=== PATIENT | female | born 1955 | race Caucasian/White ===

== ENCOUNTER 2020-03-02 21:14 | Emergency (ER) | payer MEDICARE, MEDICAID, SELFPAY ==
[2020-03-02 21:30] VITALS: BP 141/80; PULSE 75; RESP 18; TEMP 37.1; O2SAT 93
--- NOTE | 2020-03-02 21:34 | CTR_ITS ---
PROCEDURE INFORMATION: Exam: CT Head Without Contrast Exam date and time: 03/02/2020 9:52 PM Age: 64 years old Clinical indication: Injury or trauma; Fall; Initial encounter; Blunt trauma (contusions or hematomas); Consciousness not specified TECHNIQUE: Imaging protocol: Computed tomography of the head without contrast. Radiation optimization: All CT scans at this facility use at least one of these dose optimization techniques: automated exposure control; mA and/or kV adjustment per patient size (includes targeted exams where dose is matched to clinical indication); or iterative reconstruction. COMPARISON: CT head wo con* [id number] 03/01/2019 5:58 PM RADIATION DOSE METRICS: Total DLP (mGy-cm): 819.84 FINDINGS: Brain: There is mild diffuse cerebral atrophy. Patchy areas of hypoattenuation are seen in the deep white the cerebral hemispheres bilaterally compatible with deep white matter microvascular disease. Ventricles: Normal. No ventriculomegaly. Bones/joints: Unremarkable. No acute fracture. Sinuses: Fluid and mucosal thickening is seen within the ethmoidal and sphenoidal sinuses. Mastoid air cells: Visualized mastoid air cells are well aerated. Soft tissues: Soft tissue swelling and hematoma formation seen within the left posterior parietal scalp. CT/CT head wo con* [id number] IMPRESSION: There are no acute intracranial findings. Radiation Dose CTDIVOL = (mGy): DLP = 819.84 (mGy-cm)
--- NOTE | 2020-03-02 21:34 | CTR_ITS ---
PROCEDURE INFORMATION: Exam: CT Cervical Spine Without Contrast Exam date and time: 03/02/2020 9:52 PM Age: 64 years old Clinical indication: Injury or trauma; Fall; Initial encounter; Blunt trauma TECHNIQUE: Imaging protocol: Computed tomography images of the cervical spine without contrast. Radiation optimization: All CT scans at this facility use at least one of these dose optimization techniques: automated exposure control; mA and/or kV adjustment per patient size (includes targeted exams where dose is matched to clinical indication); or iterative reconstruction. COMPARISON: CT Cervical Spine wo* [id number] 11/05/2014 3:00 PM RADIATION DOSE METRICS: Total DLP (mGy-cm): 568.27 FINDINGS: Vertebrae: No acute fracture. Normal alignment. Discs/Spinal canal/Neural foramina: There is a diffuse loss of disc height seen within the cervical spine most prominently seen at C5-C6 compatible with degenerative disc disease. Mild sclerosis, joint space narrowing and bone spurring is seen within the facets of the cervical spine compatible with degenerative joint disease. Soft tissues: Unremarkable. Sinuses: Minimal fluid is seen within the sphenoidal sinuses. Lungs: Lung apices are normal. CT/CT cervical spin wo con* [id number] IMPRESSION: There are no acute osseous findings. Radiation Dose CTDIVOL = (mGy): DLP = 568.27 (mGy-cm)
--- NOTE | 2020-03-02 21:34 | ECG_ITS ---
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 Measurements Intervals [place] Rate: 72 P: 31 MN: 175 QRS: -33 QRSD: 105 T: 43 QT: 407 QTc: 447 Interpretive Statements SINUS RHYTHM POSSIBLE LEFT ATRIAL ENLARGEMENT [-0.1mV P WAVE IN V1/V2] LEFT AXIS DEVIATION [QRS AXIS < -30] SEPTAL MYOCARDIAL INFARCTION , OF INDETERMINATE AGE [40+ ms Q WAVE IN V1/V2] Compared to ECG 03/01/2019 20:02:22 Left-axis deviation now present Myocardial infarct finding still present Electronically Signed On 03-03-2020 13:18:47 CDT by Kasie Keller M.D. [id number] f
--- NOTE | 2020-03-02 21:34 | XRR_ITS ---
PROCEDURE INFORMATION: Exam: XR Left Shoulder Exam date and time: 03/02/2020 10:34 PM Age: 64 years old Clinical indication: Injury or trauma; Fall; Initial encounter; Blunt trauma (contusions or hematomas; Shoulder; Bilateral TECHNIQUE: Imaging protocol: XR Left shoulder. Views: 2 or more views. COMPARISON: No relevant prior studies available. FINDINGS: Bones/joints: Normal. Soft tissues: Some calcifications are seen within the region of the supraspinatus tendon. XR/XR shoulder LT min 2V* [id number] IMPRESSION: There are no acute osseous findings.
--- NOTE | 2020-03-02 21:34 | CTR_ITS ---
PROCEDURE INFORMATION: Exam: CT Lumbar Spine Without Contrast Exam date and time: 03/02/2020 9:52 PM Age: 64 years old Clinical indication: Injury or trauma; Fall; Initial encounter; Blunt trauma (contusions or hematomas) TECHNIQUE: Imaging protocol: Computed tomography images of the lumbar spine without contrast. Radiation optimization: All CT scans at this facility use at least one of these dose optimization techniques: automated exposure control; mA and/or kV adjustment per patient size (includes targeted exams where dose is matched to clinical indication); or iterative reconstruction. COMPARISON: [place] [id number] 03/01/2019 6:00 PM RADIATION DOSE METRICS: Total DLP (mGy-cm): 2276.57 FINDINGS: Vertebrae: There is further acute collapse the L1 vertebral body compared with 03/01/2019. There is some retropulsion of the posterior aspect of the superior endplate of L1 into the spinal canal narrowing the AP dimension of the spinal canal to 9.3 mm. Discs/Spinal canal/Neural foramina: There is a diffuse loss of disc height seen within the lumbar spine with vacuum disc phenomenon seen at L1-L3 and at L4-L5. There is posterior bony bar formation and disc bulging seen at the L2-L3 level more prominent to the right. Prominent broad-based posterior disc bulging is seen at the L4-L5 appearing to contact and flatten the thecal sac anteriorly. There is some bilateral facet hypertrophy seen. However, there is no definite contact with exiting nerve roots. There is a simple bony bar formation and disc bulging seen at L5-S1. Stomach and bowel: Diverticula are present on the sigmoid colon. Soft tissues: Unremarkable. CT/CT lumbar spine wo con* [id number] IMPRESSION: 1. There is further acute compression and collapse of the L1 vertebral body compared with 03/01/2019. 2. Diffuse degenerative disc disease lumbar spine. Radiation Dose CTDIVOL = (mGy): DLP = 2276.57 (mGy-cm)
--- NOTE | 2020-03-02 21:34 | XRR_ITS ---
PROCEDURE INFORMATION: Exam: XR Left Knee Exam date and time: 03/02/2020 10:34 PM Age: 64 years old Clinical indication: Injury or trauma; Fall; Initial encounter; Blunt trauma; Knee; Bilateral TECHNIQUE: Imaging protocol: XR Left knee. Views: 3 views. COMPARISON: No relevant prior studies available. FINDINGS: Bones/joints: Normal. Soft tissues: Normal. XR/XR knee LT 3V* [id number] IMPRESSION: No acute findings.
--- NOTE | 2020-03-02 21:34 | ED_ITS ---
HPI - Fall General: Chief Complaint: Fall Stated Complaint: fall Time Seen by Provider: 03/02/20 21:25 Source: patient Mode of arrival: ambulatory Limitations: no limitations History of Present Illness: HPI Narrative: 64-year-old female was attempting to walk up the steps of her house with the assistance of her son when she lost her balance and fell backwards landing on her left side. Patient and son was also injured hitting his head on the concrete. Patient has an abrasion to her left shoulder and left knee. Patient has a small contusion to the left occipital scalp area. No open wounds were noted. Patient moves all extremities well. Patient appears in moderate pain. Patient was given 2 mg of Dilaudid and 4 mg of Zofran in route to the emergency room per EMS. complaint: fall Review of Systems General: Reports: 10 or more systems reviewed and unremarkable except in HPI and below Musc: Reports: extremity pain Neuro: Reports: other (head injury) Physical Exam Const: COMMON NORMALS: no acute distress and patient oriented x3 GENERAL APPEARANCE: cooperative HENMT: COMMON NORMALS: TM's normal bilaterally and Normal external nose present HEAD & SCALP: normal to inspection NOSE: Normal external nose present TYMPANIC MEMBRANE: TM's normal bilaterally MOUTH: Normal oral and palatal mucosa present THROAT: posterior oropharynx normal OTHER: contusion left occipital scalp Eye: GENERAL EYE: appearance normal, both eyes and all related structures Neck/C-Spine: COMMON NORMALS: full ROM Lymph: LYMPHATIC: no lymphadenopathy noted Chest: COMMONS NORMALS: normal inspection of the chest Resp: COMMON NORMALS: normal respiratory effort EFFORT & INSPECTION: Yes able to speak in complete sentences Cardio: COMMON NORMALS: regular rate and regular rhythm RATE: regular rate RHYTHM: regular rhythm GI: COMMON NORMALS: non-tender : COMMON NORMALS: Yes no CVA tenderness BLADDER/KIDNEY EXAM: Yes no CVA tenderness Back/Pelvis: COMMON NORMALS: no CVA tenderness and thoracic and lumbar spine normal to inspection Extremity: NARRATIVE EXTREMITY EXAM: normal ROM, abrasion left shoulder, left lower leg Neuro: COMMON NORMALS: patient oriented x3 and moves all extremities Psych: COMMON NORMALS: mental status grossly normal and cooperative Skin: COMMON NORMALS: no rashes or lesions noted GENERAL SKIN EXAM: no rashes or lesions noted Course Vital Signs: Vital signs: Vital Signs Temperature 98.8 F 09/04/20 21:30 Pulse Rate 75 03/02/20 21:30 Respiratory Rate 18 03/02/20 21:30 Blood Pressure 141/80 03/02/20 21:30 Pulse Oximetry 93 03/02/20 21:30 MDM - Fall MDM Narrative: Medical decision making narrative: Patient comes in for evaluation after a fall at home. Patient appears well. Patient appears no acute distress. Patient reports back pain. Exam notes abrasion to the left shoulder and left knee. Abdomen soft nontender. Vital signs are normal. Differential diagnosis includes but not limited to fracture, sprain, contusions. X-ray of the chest shoulder and knee demonstrated no acute injury. CT scan of the head and cervical spine were negative for any acute injury. CT scan of the lumbar spine noted further compression of the L1 vertebra, no obvious worsening retropulsion of the vertebra onto the spinal cord was noted from previous exam. Reviewed exam with patient and family recommending pain control and follow-up with pain management for further treatment. Family reports understanding and agreed to plan. Lab Data: Labs: Lab Results 03/02/20 03/02/20 03/02/20 Range/Units 21:48 21:48 21:48 WBC 8.6 (4.0-10.0) 10^3/ uL RBC 5.24 (4.1-5.3) 10^6/u L Hgb 14.5 (11.5-15.3) g/dL Hct 44.4 (37.0-47.0) % MCV 84.7 (81-99) fL MCH 27.7 L (28.0-34.0) pg MCHC 32.7 (30.0-36.0) g/dL RDW 13.3 (12.1-15.1) % Plt Count 234 (130-400) 10^3/c mm MPV 10.7 H (7.4-10.4) fL Neut % (Auto) 61.8 % Lymph % (Auto) 27.9 % [place] % (Auto) 8.5 % Eos % (Auto) 0.9 % Baso % (Auto) 0.6 % Neut # (Auto) 5.32 (1.8-7.7) 10^3/u L Lymph # (Auto) 2.4 (0.8-4.8) 10^3/u L [place] # (Auto) 0.7 (0.2-0.9) 10^3/u L Eos # (Auto) 0.1 (0.0-0.8) 10^3/u L Baso # (Auto) 0.1 (0.0-0.1) 10^3/u L Nucleated RBC % (a uto) 0 % Nucleated RBCs # 0.0 /100WBC Sodium 135 L (136-145) mmol/L Potassium 4.2 (3.5-5.1) mmol/L Chloride 97 L (98-107) mmol/L Carbon Dioxide 27 (22-29) mmol/L Anion Gap 15.2 (5-19) BUN 13 (8-23) mg/dL Creatinine 0.6 (0.5-0.9) mg/dL GFR Calculation 100.0 (90-130) mL/min Glucose 424 H (65-115) mg/dL Calculated Osmolal ity 294 (285-295) mOsm/k g Calcium 10.3 (8.5-10.5) mg/dL Total Bilirubin 0.3 (0.15-1.2) mg/dL AST 11 (0-32) U/L ALT 12 (0-33) U/L Alkaline Phosphata se 93 (35-105) IU/L Total Protein 7.4 (6.6-8.7) g/dL Albumin 4.3 (3.5-5.2) g/dL Globulin 3.1 (1.3-4.6) g/dL Serum Ketones Negative (Negative) EKG Data^: EKG 1: Attestation: I personally reviewed and interpreted this EKG as follows: (2200, sinus rhythm rate of 72 bpm regular, no ectopy, no ST elevation.) Discharge Plan Discharge Patient Disposition: Home Clinical Impression: Closed compression fracture of body of L1 vertebra Condition: Stable Prescriptions: New Celebrex 200 mg capsule 200 mg PO BID Qty: 20 RF: 0 hydrocodone-acetaminophen 5-325 mg tablet 1 tab PO Q6H PRN (Reason: pain) Qty: 20 RF: 0 No Action hydrocodone-acetaminophen 7.5-325 mg tablet 1 tab PO TID PRNRF: 0 ondansetron HCl 4 mg tablet 4 mg PO Q8H RF: 0 Lantus Solostar U-100 Insulin 100 unit/mL (3 mL) insulin pen 70 unit SUBCUT .bedtime RF: 0 dicyclomine 20 mg tablet 20 mg PO QID 90 Days Qty: 360 RF: 3 lisinopril-hydrochlorothiazide 20-12.5 mg tablet 1 tab PO DAILY 90 Days Qty: 90 RF: 1 pregabalin [Lyrica] 100 mg capsule 100 mg PO BID 30 Days Qty: 60 RF: 3 zolpidem [Ambien] 10 mg tablet 10 mg PO .at bedtime 30 Days Qty: 30 RF: 5 Discharge Orders: Discharge Order (Routine); Ordered 03/02/20 Ordered By: Masoud Goins Referrals: Diogo King MD [Primary Care Provider] - Discharge Diet: Usual diet Discharge Activity: Increase activity as tolerated Patient Instructions: Thoracolumbar Fracture (ED) Activity Restrictions/Additional Instructions: Use walker when ambulating. Use hydrocodone for breakthrough pain. Continue with routine medications as directed. Use Celebrex twice daily for further pain relief. Use ice or heat for further control of pain. Follow-up with primary care as needed. Case management will contact you regarding pain treatment with kyphoplasty referral. 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
--- NOTE | 2020-03-02 21:36 | XRR_ITS ---
PROCEDURE INFORMATION: Exam: XR Chest, 1 View Exam date and time: 03/02/2020 10:36 PM Age: 64 years old Clinical indication: Injury or trauma; Fall; Initial encounter; Blunt trauma (contusions or hematomas) TECHNIQUE: Imaging protocol: XR of the chest Views: 1 view. COMPARISON: CR Chest 1 [place] [id number] 03/01/2019 5:04 PM FINDINGS: Lungs: Unremarkable. No consolidation. Pleural space: Unremarkable. No pleural effusion. No pneumothorax. Heart/Mediastinum: Unremarkable. No cardiomegaly. Bones/joints: Unremarkable. XR/XR chest 1V portable [id number] IMPRESSION: No acute findings. Stable appearance of the chest compared with 03/01/2019.
[2020-03-02 22:03] LABS: Basophils # 0.1 10^3/uL (0.0-0.1); Basophils % 0.6 %; Eosinophils # 0.1 10^3/uL (0.0-0.8); Eosinophils % 0.9 %; Hematocrit 44.4 % (37.0-47.0); Hemoglobin 14.5 g/dL (11.5-15.3); Lymphocytes # 2.4 10^3/uL (0.8-4.8); Lymphocytes % 27.9 %; Mean Corpuscular HGB Conc 32.7 g/dL (30.0-36.0); Mean Corpuscular Hemoglobin 27.7 pg (28.0-34.0); Mean Corpuscular Volume 84.7 fL (81-99); Mean Platelet Volume 10.7 fL (7.4-10.4); Monocytes # 0.7 10^3/uL (0.2-0.9); Monocytes % 8.5 %; Neutrophils # 5.32 10^3/uL (1.8-7.7); Neutrophils % 61.8 %; Nucleated Red Blood Cells % 0 %; Platelet Count 234 10^3/cmm (130-400); Red Blood Count 5.24 10^6/uL (4.1-5.3); Red Cell Distribution Width 13.3 % (12.1-15.1); White Blood Count 8.6 10^3/uL (4.0-10.0)
[2020-03-02 22:08] VITALS: BP 142/86; PULSE 75; RESP 18; O2SAT 96
[2020-03-02 22:28] LABS: Alanine Aminotransferase 12 U/L (0-33); Albumin Level 4.3 g/dL (3.5-5.2); Alkaline Phosphatase 93 IU/L (35-105); Anion Gap 15.2 (5-19); Aspartate Amino Transferase 11 U/L (0-32); Blood Urea Nitrogen 13 mg/dL (8-23); Calcium 10.3 mg/dL (8.5-10.5); Carbon Dioxide 27 mmol/L (22-29); Chloride 97 mmol/L (98-107); Globulin 3.1 g/dL (1.3-4.6); Glucose 424 mg/dL (65-115); Osmolality Calculated 294 mOsm/kg (285-295); Potassium 4.2 mmol/L (3.5-5.1); Sodium 135 mmol/L (136-145); Total Bilirubin 0.3 mg/dL (0.15-1.2); Total Protein 7.4 g/dL (6.6-8.7)
[2020-03-02] MEDS: ketorolac 30 mg/mL INJ 15 MG IVP (22:38)
[2020-03-02 22:51] LABS: Ketone (Acetest) Serum Negative (Negative)
[2020-03-02 23:08] VITALS: BP 141/80; PULSE 73; RESP 17; O2SAT 95
[2020-03-02] MEDS: HYDROcodone-acetaminophen 10-325 mg Tablet 1 TAB PO (23:32)
[2020-03-02 23:36] VITALS: BP 148/81; PULSE 72; RESP 17; O2SAT 96
--- NOTE | 2020-03-07 13:29 | DCPLANNER ---
solid waste disposal manager had message to schedule a follow up appointment for patient with pain management for kyphoplasty. solid waste disposal manager called patient to speak with patient about the referral and that patient would need to go to [place], due to not having this in the area. solid waste disposal manager called patient, spoke with patients friend, was told that patient could not speak at the time. solid waste disposal manager called patient again, unable to speak with patient at this time, a voicemail was left for patient to return case briefer phone call.
--- NOTE | 2020-03-22 15:56 | DCPLANNER ---
Patient has a follow up appointment scheduled for Monday, March 30, 2020 at 10:[address] Slater at the [facility]. Clinic will call patient with appointment information.
--- NOTE | 2020-04-04 13:12 | DCPLANNER ---
Patients appointment scheduled for 03.30.[address] Slater was cancelled and not rescheduled at this time.
== END 2020-03-02 23:52 | disposition home or self-care (01) ==
PROVIDERS: Emergency Provider Nurse Practitioner Family; PCP Family Medicine
DX: S32.010A Wedge compression fracture of first lumbar vertebra, initial encounter for closed fracture (principal); Z79.4 Long term (current) use of insulin; W01.0XXA Fall on same level from slipping, tripping and stumbling without subsequent striking against object, initial encounter
CPT/HCPCS: 12345; 36415; 70450; 71045; 72125; 72131; 73030; 73562; 80053; 82009; 85025; 93005; 96375; 99281; 99283; J1885

== ENCOUNTER 2020-03-19 15:05 | Outpatient (CLI) | payer MEDICARE, MEDICAID, SELFPAY ==
--- NOTE | 2020-03-19 15:15 | MR_ITS ---
WS: [id number] MRI LUMBAR SPINE NONCONTRAST HISTORY: compression fracture L1, degenerative disc disease COMPARISON: 03/02/2020 TECHNIQUE: Sagittal and axial multisequence imaging is submitted. LEFT convex curvature of the lumbar spine. Slight reversal at the L1 level. L1 burst fracture with re tropulsion by 6.5 mm of the posterior superior endplate. Fracture extends through the anterior and po sterior vertebral body. There is a severe compression deformity centrally by at least 80%. There is c ontinued marrow edema involving a large portion of the L1 vertebral body and also within the very ant erior and RIGHT lateral aspect of L2. Disc desiccation throughout the lumbar spine. L4 anterolisthesis by 3 mm. Conus terminates normally at L2. T12-L1: Burst fracture resulting in mild subarticular recess narrowing, RIGHT greater than LEFT. L1-L2: Mild effacement of the ventral thecal sac due to the L1 vertebral body fracture with retropuls ion. Mild bilateral foraminal narrowing. L2-L3: Mild osteophytic ridging and annular disc bulging. RIGHT facet osteophyte encroaches into the thecal sac. No significant stenosis. L3-L4: Mild annular disc bulging and osteophytic ridging and facet arthritis. Mild RIGHT subarticular recess narrowing. L4-L5: Mild annular disc bulging and osteophytic ridging. Shallow LEFT paracentral disc protrusion an d facet arthritis. Mild central stenosis. L5-S1: Shallow central disc protrusion with mild facet arthritis. MR/MR lumbar spine wo con* [id number] IMPRESSION: 1. Subacute burst fracture of L1 with 6.5 mm retropulsion of posterior superio r endplate with mild narrowing of the subarticular recesses at T12-L1. 2. Additional minimal marrow edema in the anterior RIGHT superior L2 vertebral body. 3. Multilevel degenerative changes in the lumbar spine. No severe central or foraminal stenosis.
== END 2020-03-19 15:06 | disposition home or self-care (01) ==
LOC: RADWPI 15:13
PROVIDERS: PCP Family Medicine; Visit Provider Family Medicine
DX: S32.010A Wedge compression fracture of first lumbar vertebra, initial encounter for closed fracture (principal); X58.XXXA Exposure to other specified factors, initial encounter; M51.36 Other intervertebral disc degeneration, lumbar region
CPT/HCPCS: 72148

== ENCOUNTER → 2020-04-09 13:32 | Outpatient (BNVA) | payer MEDICARE, MEDICAID, SELFPAY | PROVIDERS: PCP Family Medicine; Visit Provider Nurse Practitioner Family | DX: Z20.828 Contact with and (suspected) exposure to other viral communicable diseases (principal) | CPT/HCPCS: 87635 ==

== ENCOUNTER → 2020-05-03 13:19 | Outpatient (BNVA) | payer MEDICARE, MEDICAID, SELFPAY | PROVIDERS: PCP Family Medicine; Referring Provider Family Medicine; Visit Provider Anesthesiology Pain Medicine | DX: M54.9 Dorsalgia, unspecified (principal); S32.001K Stable burst fracture of unspecified lumbar vertebra, subsequent encounter for fracture with nonunion; X58.XXXD Exposure to other specified factors, subsequent encounter; Z79.891 Long term (current) use of opiate analgesic | CPT/HCPCS: 99203; 99204 ==

== ENCOUNTER → 2020-05-28 08:50 | Outpatient (BNVA) | payer MEDICARE, MEDICAID, SELFPAY | PROVIDERS: PCP Family Medicine; Visit Provider Anesthesiology Pain Medicine | DX: M47.816 Spondylosis without myelopathy or radiculopathy, lumbar region (principal); M47.819 Spondylosis without myelopathy or radiculopathy, site unspecified; M54.9 Dorsalgia, unspecified; S32.001K Stable burst fracture of unspecified lumbar vertebra, subsequent encounter for fracture with nonunion; X58.XXXD Exposure to other specified factors, subsequent encounter; Z79.891 Long term (current) use of opiate analgesic | CPT/HCPCS: 99213; 99214 ==

== ENCOUNTER → 2020-06-25 10:34 | Outpatient (BNVA) | payer MEDICARE, MEDICAID, SELFPAY | PROVIDERS: PCP Family Medicine; Visit Provider Anesthesiology Pain Medicine | DX: M54.9 Dorsalgia, unspecified (principal); S32.001K Stable burst fracture of unspecified lumbar vertebra, subsequent encounter for fracture with nonunion; M51.16 Intervertebral disc disorders with radiculopathy, lumbar region | CPT/HCPCS: 99213 ==

== ENCOUNTER 2020-07-19 17:41 | Inpatient (IN) | payer MEDICARE, MEDICAID, SELFPAY ==
[2020-07-19] VITALS (11 sets, daily range): BP systolic 80–121; BP diastolic 43–70; PULSE 80–112; RESP 16–23; TEMP 36.6–37.3; O2SAT 92–96; BMI 34.3
--- NOTE | 2020-07-19 18:01 | ECG_ITS ---
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 Measurements Intervals [place] Rate: 112 P: 20 [place]: 175 QRS: -21 QRSD: 100 T: 44 QT: 339 QTc: 464 Interpretive Statements SINUS TACHYCARDIA POSSIBLE LEFT ATRIAL ENLARGEMENT [-0.1mV P WAVE IN V1/V2] POSSIBLE ANTERIOR MYOCARDIAL INFARCTION , OF INDETERMINATE AGE [30 ms Q WAVE IN V3/V4, OR R < 0.2 mV IN V4] Compared to ECG 03/02/2020 21:59:21 Sinus rhythm no longer present Left-axis deviation no longer present Myocardial infarct finding still present Electronically Signed On 07-20-2020 19:09:44 [employer]T [employer]KER by Alli Loyola M.D. [id number] f
--- NOTE | 2020-07-19 18:01 | XR_ITS ---
WS: [id number] Portable AP upright chest, 07/19/2020 Clinical Data: stroke Comparison: Portable chest, 03/02/2020. Findings: No nodules, masses or effusions are seen. The heart is normal. The pulmonary vascularity is not increased. No pneumonia or pneumothorax is seen. The aortic arch and descending aorta show tortu osity. There is calcification over the right humeral head representing calcific bursitis or tendiniti s. XR/XR chest 1V portable [id number] Impression: Atherosclerosis.
--- NOTE | 2020-07-19 18:01 | CTR_ITS ---
PROCEDURE INFORMATION: Exam: CT Head Without Contrast Exam date and time: 07/19/2020 7:21 PM Age: 64 years old Clinical indication: Pain; Headache; Additional info: Symptoms of acute stroke TECHNIQUE: Imaging protocol: Computed tomography of the head without contrast. Radiation optimization: All CT scans at this facility use at least one of these dose optimization techniques: automated exposure control; mA and/or kV adjustment per patient size (includes targeted exams where dose is matched to clinical indication); or iterative reconstruction. Other technique: STROKE PROTOCOL was implemented. COMPARISON: CT head wo con* [id number] 03/02/2020 10:33 PM RADIATION DOSE METRICS: Total DLP (mGy-cm): 748.78 FINDINGS: Brain: Mild atrophy and mild white matter chronic microvascular changes are noted. No hemorrhage or CT evidence of acute infarction is seen. Cerebral ventricles: No ventriculomegaly. Bones/joints: Unremarkable. No acute fracture. Paranasal sinuses: Visualized sinuses are unremarkable. No fluid levels. Mastoid air cells: Visualized mastoid air cells are well aerated. Soft tissues: Unremarkable. CT/CT head wo con* [id number] IMPRESSION: No acute intracranial abnormality ASSESSMENT: ASPECTS ([place] Stroke Program Early CT Score) is 10. Radiation Dose CTDIVOL = (mGy): DLP = 748.78 (mGy-cm)
--- NOTE | 2020-07-19 18:01 | CTR_ITS ---
PROCEDURE INFORMATION: Exam: CT Angiography Head With Contrast Exam date and time: 07/19/2020 7:21 PM Age: 64 years old Clinical indication: Speech disturbance; Additional info: Stroke TECHNIQUE: Imaging protocol: Computed tomography angiography of the head with intravenous contrast. 3D rendering (Not supervised by radiologist): MIP and/or 3D reconstructed images were created by the technologist. Radiation optimization: All CT scans at this facility use at least one of these dose optimization techniques: automated exposure control; mA and/or kV adjustment per patient size (includes targeted exams where dose is matched to clinical indication); or iterative reconstruction. Contrast material: OMNI 350; Contrast volume: 95 ml; Contrast route: INTRAVENOUS (IV); COMPARISON: No relevant prior studies available. RADIATION DOSE METRICS: Total DLP (mGy-cm): 2498.87 FINDINGS: ANTERIOR CIRCULATION: Right internal carotid artery: The right ICA is occluded in the carotid canal, with reconstitution of the cavernous portion. Areas of [id number] stenosis of the cavernous portion of the right ICA are appreciated. Right middle cerebral artery: Unremarkable. No occlusion or significant stenosis. No aneurysm. 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 Otherwise, the right TAWANDA is patent distal to the communicating artery junction. Left internal carotid artery: Mild stenosis of the anterior turn of the left carotid siphon is noted. Left middle cerebral artery: Unremarkable. No occlusion or significant stenosis. No aneurysm. Left anterior cerebral artery: Unremarkable. No occlusion or significant stenosis. No aneurysm. POSTERIOR CIRCULATION: Right vertebral artery: Severe stenosis of the terminal right vertebral artery is noted. 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 Basilar artery: Unremarkable. No occlusion or significant stenosis. No aneurysm. Right posterior cerebral artery: Unremarkable. No occlusion or significant stenosis. No aneurysm. Left posterior cerebral artery: Unremarkable. No occlusion or significant stenosis. No aneurysm. Brain: No definite mass, mass effect, or midline shift. Cerebral ventricles: No ventriculomegaly. Bones/joints: Unremarkable. No acute fracture. Soft tissues: Unremarkable. IMPRESSION: 1. 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 2. Severe stenosis of the terminal right vertebral artery. 3. Mild stenosis of the left carotid siphon. PROCEDURE INFORMATION: Exam: CT Angiography Neck With Contrast Exam date and time: 07/19/2020 7:21 PM Age: 64 years old Clinical indication: Speech disturbance; Additional info: Stroke TECHNIQUE: Imaging protocol: Computed tomography angiography of the neck with intravenous contrast. 3D rendering (Not supervised by radiologist): MIP and/or 3D reconstructed images were created by the technologist. Radiation optimization: All CT scans at this facility use at least one of these dose optimization techniques: automated exposure control; mA and/or kV adjustment per patient size (includes targeted exams where dose is matched to clinical indication); or iterative reconstruction. Contrast material: OMNI 350; Contrast volume: 95 ml; Contrast route: INTRAVENOUS (IV); COMPARISON: No relevant prior studies available. RADIATION DOSE METRICS: Total DLP (mGy-cm): 2498.87 FINDINGS: Right common carotid artery: Moderate stenosis of the right carotid bulb is appreciated. Right internal carotid artery: Atherosclerotic plaque causes near-complete occlusion of the proximal right ICA. Right external carotid artery: Moderate stenosis of the right ECA origin is noted. Right vertebral artery: No stenosis. No dissection or occlusion. Left common carotid artery: No stenosis. No dissection or occlusion. Left internal carotid artery: Atherosclerotic plaque causes mild stenosis of the proximal left ICA. Left external carotid artery: No occlusion or stenosis of the origin. Left vertebral artery: No stenosis. No dissection or occlusion. Bones/joints: Mild degenerative changes are observed in the cervical spine. No cervical spine fracture is visualized. Spinal alignment is normal. Soft tissues: Normal. No significant soft tissue swelling. CT/CT angio headneck* [id number] IMPRESSION: 1. 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 2. Moderate stenosis of the right carotid bulb. 3. Mild stenosis of the proximal left ICA. REFERENCES: NASCET CRITERIA. The degree of internal carotid artery stenosis is based on NASCET criteria. Normal is no stenosis. Mild is less than 50% stenosis. Moderate is 50-69% stenosis. Severe is 70% to 99% stenosis. Total occlusion is no detectable patent lumen. Radiation Dose CTDIVOL = (mGy): DLP = 2498.87~2498.87 (mGy-cm)
--- NOTE | 2020-07-19 18:17 | PC.NURSE ---
Patient blood glucose is 399, nurse is aware.
[2020-07-19 18:18] LABS: Basophils # 0.1 10^3/uL (0.0-0.1); Basophils % 0.4 %; Eosinophils # 0.5 10^3/uL (0.0-0.8); Eosinophils % 3.7 %; Hematocrit 47.2 % (37.0-47.0); Hemoglobin 15.5 g/dL (11.5-15.3); Lymphocytes # 0.6 10^3/uL (0.8-4.8); Lymphocytes % 4.6 %; Mean Corpuscular HGB Conc 32.8 g/dL (30.0-36.0); Mean Corpuscular Hemoglobin 27.9 pg (28.0-34.0); Mean Corpuscular Volume 84.9 fL (81-99); Mean Platelet Volume 10.2 fL (7.4-10.4); Monocytes # 1.7 10^3/uL (0.2-0.9); Monocytes % 13.6 %; Neutrophils # 9.54 10^3/uL (1.8-7.7); Neutrophils % 76.9 %; Nucleated Red Blood Cells % 0 %; Platelet Count 242 10^3/cmm (130-400); Red Blood Count 5.56 10^6/uL (4.1-5.3); Red Cell Distribution Width 13.2 % (12.1-15.1); White Blood Count 12.4 10^3/uL (4.0-10.0)
[2020-07-19 18:19] LABS: Glucose Point of Care 399 mg/dL (70-110)
[2020-07-19 18:33] LABS: INR 1.14 (0.8-1.2)
[2020-07-19 18:34] LABS: Partial Thromboplastin Time 29.5 SECONDS (23.9-36.7)
[2020-07-19 18:42] LABS: Alanine Aminotransferase 11 U/L (0-33); Albumin Level 3.9 g/dL (3.5-5.2); Alkaline Phosphatase 91 IU/L (35-105); Anion Gap 34.8 (5-19); Aspartate Amino Transferase 9 U/L (0-32); Blood Urea Nitrogen 16 mg/dL (8-23); Calcium 9.9 mg/dL (8.5-10.5); Chloride 93 mmol/L (98-107); Globulin 3.6 g/dL (1.3-4.6); Glomerular Filtration Rate 62.6 mL/min (90-130); Glucose 409 mg/dL (65-115); Osmolality Calculated 294 mOsm/kg (285-295); Potassium 3.8 mmol/L (3.5-5.1); Sodium 133 mmol/L (136-145); Total Bilirubin 0.5 mg/dL (0.15-1.2); Total Protein 7.5 g/dL (6.6-8.7)
[2020-07-19 18:57] LABS: Carbon Dioxide 9 mmol/L (22-29)
[2020-07-19 19:01] LABS: Amphetamines Screen Urine Negative (Negative); Barbiturates Screen Urine Negative (Negative); Benzodiazepines Screen Urine Negative (Negative); Cocaine Screen Urine Negative (Negative); Opiate Screen Urine Negative (Negative); PCP Screen Urine Negative (Negative); THC Screen Urine Negative (Negative)
[2020-07-19 19:11] LABS: Blood Urine 2+ (Negative); Glucose Urine UA 4+ (Normal); Ketones Urine 3+ (Negative); Protein Urine 1+ (Negative); Urine Appearance Hazy (CLEAR); Urine Color Yellow (Yellow); pH Urine 5 (5-7)
[2020-07-19 19:12] LABS: Add Urine Microscopic? YES; Bilirubin Urine Neg (Negative); Leukocyte Esterase Urine Negative (Negative); Nitrate Urine Negative (Negative); Urobilinogen Urine Norm (Negative)
[2020-07-19 19:13] LABS: Amorphous Sediment Urine 2+ /hpf; Bacteria Urine 1+ /hpf; Squamous Epithelial Cell Urine 0-4 /hpf (0-5)
[2020-07-19 19:14] LABS: Add Urine Culture? No
[2020-07-19] MEDS: iohexol 350 mg/mL 100 mL Btl IV (19:22)
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
[2020-07-19 20:10] LABS: ABG PCO2 21.5 mmHg (35-45); ABG PH Result 7.33 (7.35-7.45); Alveolar-Arterial Oxygen Gradi 5.8 mmHg (5-10); Arterial Blood Gas Hematocrit 43.7 % (37-47); Base Excess ABG -12.3 mmol/L (-2.0-2.0); Blood Gas Allen Test Pos; Blood Gas Sample Site Radial, right; Blood Gas Sample Type Arterial; Carboxyhemoglobin 1.4 %THgb (0.4-20.1); HCO3 ABG 11.4 mmol/L (22-26); Ionized Calcium Level - ABG 1.3 mmol/L (1.1-1.4); Oxygen Device ROOM AIR; Oxygen Saturation ABG 96.3; PO2 ABG 76.1 mmHg (80.0-100.0); Potassium Level - ABG 3.7 mmol/L (3.5-5.0); Total Hemoglobin 14.3 g/dL (12-16)
[2020-07-19 20:31] LABS: Ketone (Acetest) Serum Positive (Negative)
[2020-07-19] MEDS: HYDROcodone-acetaminophen 5-325 mg Tablet 1 TAB PO (20:40)
--- NOTE | 2020-07-19 20:43 | PC.NURSE ---
Patient blood glucose is 441, nurse is aware.
[2020-07-19 20:46] LABS: Glucose Point of Care 441 mg/dL (70-110)
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
[2020-07-19] MEDS: insulin regular-human 100 units/1 mL 10 UNIT IVP (20:56)
[2020-07-19] MEDS: sodium chloride 0.9% 1,000 ML 999 ML IV (20:56)
--- NOTE | 2020-07-19 21:21 | PC.NURSE ---
Patient blood glucose is 354, nurse has been notified.
[2020-07-19 21:24] LABS: Glucose Point of Care 354 mg/dL (70-110)
[2020-07-19 21:38] LABS: D Dimer 1.02 ug/mIFEU (0-0.59)
[2020-07-19 21:56] LABS: Lipase 18 U/L (13-60); Triglycerides 147 mg/dL (0-150)
[2020-07-19 21:59] LABS: Troponin T (5th) Once 17 ng/L (0-10)
[2020-07-19 22:08] LABS: Estmated Average Glucose 318; Hemoglobin A1C 12.7 % (4.0-6.0)
--- NOTE | 2020-07-19 22:24 | PC.NURSE ---
Recieved report from ED
[2020-07-19] MEDS: clopidogrel 75 mg Tablet PO (23:14)
[2020-07-19] MEDS: atorvastatin 40 mg Tablet PO (23:14)
[2020-07-19] MEDS: aspirin 81 mg Chew Tablet PO (23:14)
[2020-07-19] MEDS: potassium chloride ER 20 mEq Tablet 40 MEQ PO (23:15)
[2020-07-19] MEDS: ondansetron 4 MG Tablet PO (23:15)
[2020-07-19] MEDS: sodium chlor 0.9% + KCl 40 mEq 40 MEQ/1,000 ML BAG 100 MEQ IV (23:16)
[2020-07-19 23:39] LABS: Anion Gap 22.5 (5-19); Blood Urea Nitrogen 23 mg/dL (8-23); Calcium 9.2 mg/dL (8.5-10.5); Carbon Dioxide 17 mmol/L (22-29); Chloride 98 mmol/L (98-107); Glomerular Filtration Rate 62.6 mL/min (90-130); Glucose 354 mg/dL (65-115); Osmolality Calculated 296 mOsm/kg (285-295); Potassium 3.5 mmol/L (3.5-5.1); Sodium 134 mmol/L (136-145)
[2020-07-20] VITALS (27 sets, daily range): BP systolic 95–147; BP diastolic 48–98; PULSE 71–128; RESP 14–34; TEMP 36.4–37.9; O2SAT 92–99
[2020-07-20 00:03] LABS: Glucose Point of Care 319 mg/dL (70-110)
[2020-07-20] MEDS: insulin regular-human 250 UNIT in sodium chloride 0.9% 250 ML 7.9 UNIT IV (00:09)
--- NOTE | 2020-07-20 00:18 | PC.NURSE ---
patient has two orders for 1x aspirin 81 mg, plavix and lovenox on AUG. is curently on IV Insulin and has SQ Levemir ordered while Anion gap is not closed, Message sent to Dr. Mederos to Clarify
--- NOTE | 2020-07-20 01:33 | PC.NURSE ---
Arrived to unit from ED 2234, transferred to bed with lift sheet, AO x4, R sided weakness and R sided facial droop noted that was reported in report from ED nurse
--- NOTE | 2020-07-20 01:51 | PC.NURSE ---
Addendum entered by Damian Peacock RN 07/20/20 01:56: And to have patient eat Original Note: Dr. Mederos at bedside an was notified of glucose being 199, this nurse advised to give ordered Levemir, keep current fluids running and to administer ordered Lovenox
[2020-07-20] MEDS: enoxaparin 40 mg/0.4 mL Syringe SUBCUT (02:21)
[2020-07-20 02:23] LABS: Glucose Point of Care 199 mg/dL (70-110)
[2020-07-20 02:23] LABS: Glucose Point of Care 274 mg/dL (70-110)
[2020-07-20 03:26] LABS: Glucose Point of Care 202 mg/dL (70-110)
[2020-07-20 03:43] LABS: Basophils % 0.4 %; Eosinophils % 0.3 %; Hematocrit 39.4 % (37.0-47.0); Hemoglobin 13.1 g/dL (11.5-15.3); Lymphocytes # 1.4 10^3/uL (0.8-4.8); Lymphocytes % 18.3 %; Mean Corpuscular HGB Conc 33.2 g/dL (30.0-36.0); Mean Corpuscular Hemoglobin 27.6 pg (28.0-34.0); Mean Corpuscular Volume 83.1 fL (81-99); Mean Platelet Volume 9.7 fL (7.4-10.4); Monocytes # 0.7 10^3/uL (0.2-0.9); Monocytes % 9.7 %; Neutrophils # 5.21 10^3/uL (1.8-7.7); Neutrophils % 70.5 %; Nucleated Red Blood Cells % 0 %; Platelet Count 206 10^3/cmm (130-400); Red Blood Count 4.74 10^6/uL (4.1-5.3); Red Cell Distribution Width 13.2 % (12.1-15.1); White Blood Count 7.4 10^3/uL (4.0-10.0)
[2020-07-20 04:17] LABS: Alanine Aminotransferase 9 U/L (0-33); Albumin Level 3.3 g/dL (3.5-5.2); Alkaline Phosphatase 67 IU/L (35-105); Anion Gap 17.3 (5-19); Aspartate Amino Transferase 9 U/L (0-32); Blood Urea Nitrogen 24 mg/dL (8-23); Carbon Dioxide 20 mmol/L (22-29); Chloride 104 mmol/L (98-107); Globulin 2.2 g/dL (1.3-4.6); Glomerular Filtration Rate 83.7 mL/min (90-130); Glucose 230 mg/dL (65-115); Osmolality Calculated 295 mOsm/kg (285-295); Potassium 4.3 mmol/L (3.5-5.1); Sodium 137 mmol/L (136-145); Total Bilirubin 0.3 mg/dL (0.15-1.2); Total Protein 5.5 g/dL (6.6-8.7)
[2020-07-20 05:26] LABS: Glucose Point of Care 194 mg/dL (70-110)
[2020-07-20 05:27] LABS: Glucose Point of Care 184 mg/dL (70-110)
--- NOTE | 2020-07-20 05:34 | CTR_ITS ---
PROCEDURE INFORMATION: Exam: CT Angiography Chest With Contrast Exam date and time: 07/20/2020 6:10 AM Age: 64 years old Clinical indication: Shortness of breath; Additional info: Pe TECHNIQUE: Imaging protocol: Computed tomographic angiography of the chest with intravenous contrast. 3D rendering (Not supervised by radiologist): MIP and/or 3D reconstructed images were created by the technologist. Radiation optimization: All CT scans at this facility use at least one of these dose optimization techniques: automated exposure control; mA and/or kV adjustment per patient size (includes targeted exams where dose is matched to clinical indication); or iterative reconstruction. Contrast material: OMNI 350; Contrast volume: 74 ml; Contrast route: INTRAVENOUS (IV); COMPARISON: CR XR chest 1V portable [id number] 07/19/2020 6:10 PM RADIATION DOSE METRICS: Total DLP (mGy-cm): 502.49 FINDINGS: Pulmonary arteries: No large saddle pulmonary embolus. However, cannot exclude pulmonary emboli in the proximal segmental or more distal branches due to severe motion artifact degrading image quality at these levels. Aorta: No aortic aneurysm. No aortic dissection. Lungs: Unremarkable. No consolidation. No masses. Pleural space: Unremarkable. No pneumothorax. No pleural effusion. Heart: Unremarkable. No cardiomegaly. No pericardial effusion. Lymph nodes: Unremarkable. No enlarged lymph nodes. Bones/joints: Unremarkable. No acute fracture. Soft tissues: Unremarkable. CT/CT angio chest PE protcl [id number] IMPRESSION: No large saddle pulmonary embolus. However, cannot exclude pulmonary emboli in the proximal segmental or more distal branches due to severe motion artifact degrading image quality at these levels. Radiation Dose CTDIVOL = (mGy): DLP = 502.49 (mGy-cm)
[2020-07-20] MEDS: iohexol 350 mg/mL 100 mL Btl IV (06:31)
[2020-07-20] MEDS: ondansetron 4 MG Tablet PO ×3 (06:36→21:06)
[2020-07-20] MEDS: levoFLOXacin 750 mg Tablet PO (06:51)
[2020-07-20] MEDS: enoxaparin 60 mg/0.6 mL Syringe 50 MG SUBCUT (06:51)
[2020-07-20 07:04] LABS: Glucose Point of Care 208 mg/dL (70-110)
--- NOTE | 2020-07-20 07:54 | MR_ITS ---
WS: [id number] MRI BRAIN WITH AND WITHOUT CONTRAST HISTORY: CVA COMPARISON: 02/07/2015 TECHNIQUE: Multiplanar imaging performed through the brain with Prohance 17 ml's IV. No acute infarcts are seen. Sosa-white matter differentiation is well preserved. Moderate chronic nisreen rovascular ischemic changes in the white matter. Mild atrophy. No prior hemorrhage. Ventricles and extra-axial spaces are normal. Clivus and pituitary gland are normal. Visualized posterior fossa and brainstem are also normal. Postcontrast images are negative for masses or vascular malformations. Dural venous sinuses are normal. Paranasal sinuses: Well aerated with no significant disease. Mastoid air cells: Normal. Calvarium and scalp: Normal. MR/MR head wo/w con [id number] IMPRESSION: 1. No evidence for an acute infarct or hemorrhage. 2. Mild atrophy and moderate chronic microvascular ischemic disease.
--- NOTE | 2020-07-20 07:54 | NM_ITS ---
WS: [id number] NUCLEAR MEDICINE VENTILATION/PERFUSION LUNG SCAN HISTORY: ?PE, Hypoxia COMPARISON: None available. TECHNIQUE: Ventilation: 30.1 mCi of Technetium 99 DTPA aerosol inhaled. Perfusion: 5.5 mCi of technetium 99m MAA IV. Marked deposition of radionuclide centrally during ventilation. Very heterogeneous pattern of ventila tion. Perfusion study is near normal. There are no unmatched defects. NM/NM pul vent and perfus* [id number] IMPRESSION: Low probability pulmonary embolus.
--- NOTE | 2020-07-20 07:54 | USCV_ITS ---
Fatuma Ching Age: 64 Gender: F : 1955 Exam Date: 07/20/2020 16:28 Ordering Phys: Francis Coley MD Technologist: Heaven Mathew [place] [facility] [place]: CVA BP: 109 / 60 HR: 74 Rhythm: Sinus Technical Quality: Adequate MEASUREMENTS (Male / Female) Normal Values 2D ECHO LV Diastolic Diameter PLAX 3.7 cm 4.2 - 5.9 / 3.9 - 5.3 cm LV Systolic Diameter PLAX 2.3 cm IVS Diastolic Thickness 1.4 cm 0.6 - 1.0 / 0.6 - 0.9 cm IVS Systolic Thickness 1.6 cm LVPW Diastolic Thickness 1.3 cm 0.6 - 1.0 / 0.6 - 0.9 cm LVPW Systolic Thickness 1.8 cm RV Chamber Size 3.7 cm LVOT Diameter 2.0 cm LV Ejection Fraction 2D Teich 68.0 % LV Ejection Fraction MOD 2C 64.3 % LV Ejection Fraction 2C AL 63.7 % LA Diameter 2.3 cm LA Width 3.9 cm LA Height 4.0 cm RA Width 2.9 cm RA Height 3.8 cm Aorta at Sinotubular Diameter 3.0 cm M-MODE LV Diastolic Diameter MM 4.1 cm 4.2 - 5.9 / 3.9 - 5.3 cm LV Systolic Diameter MM 2.3 cm LV Ejection Fraction MM Teich 75.7 % IVS Diastolic Thickness MM 1.1 cm 0.6 - 1.0 / 0.6 - 0.9 cm IVS Systolic Thickness MM 1.9 cm LVPW Diastolic Thickness MM 1.6 cm 0.6 - 1.0 / 0.6 - 0.9 cm LVPW Systolic Thickness MM 1.2 cm Aortic Annulus Diameter 2.5 cm LA Ao Ratio MM 0.8 MV E Point Septal Separation 0.4 cm DOPPLER AV Peak Velocity 125.0 cm/s LVOT Peak Velocity 99.0 cm/s AV Area Cont Eq vti 2.7 cm squared AV Area Cont Eq pk 2.5 cm squared MV Area PHT 4.5 cm squared Mitral E to A Ratio 0.6 MV E' Velocity 33.5 cm/s Mitral E to MV E' Ratio 9.4 Mitral E to LV E' Lateral Ratio 10.6 Mitral E to LV E' Septal Ratio 8.7 TR Peak Velocity 288.0 cm/s TR Peak Gradient 33.2 mmHg TV Peak E Velocity 73.0 cm/s Right Atrial Pressure 3.0 mmHg Pulmonary Artery Systolic Pressu 36.2 mmHg PV Peak Velocity 70.0 cm/s RV Acceleration Time 0.1 s RV Ejection Time 0.3 s RV AcT/ET 0.5 FINDINGS Left Ventricle Normal left ventricular cavity size. Normal left ventricular systolic function. Left ventricular ejection fraction is estimated at 55 %. Grade I/IV diastolic dysfunction (abnormal relaxation filling pattern), normal to mildly elevated filling pressures. Right Ventricle The right ventricle is normal in size and function. Right Atrium The right atrium is normal in size. Left Atrium The left atrium is normal in size. Mitral Valve Moderately thickened mitral valve. Moderate mitral annular calcification. No mitral valve stenosis. Mild mitral valve regurgitation. Aortic Valve Moderate aortic valve calcification. No aortic valve stenosis. Trace aortic valve regurgitation. Tricuspid Valve Tricuspid valve is moderately thickened, cannot rule out vegetation clinical correlation advised .mild tricuspid valve regurgitation. Pulmonic Valve Structurally normal pulmonic valve without significant stenosis. There is no pulmonic regurgitation. Pericardium Normal pericardium without effusion. Aorta Normal ascending aorta dimension. CONCLUSIONS 1-Normal left ventricular cavity size. Normal left ventricular systolic function. Left ventricular ejection fraction is estimated at 55 %. Grade I/IV diastolic dysfunction (abnormal relaxation filling pattern), normal to mildly elevated filling pressures. 2-Moderately thickened mitral valve. Moderate mitral annular calcification. No mitral valve stenosis. Mild mitral valve regurgitation. 3-Moderate aortic valve calcification. No aortic valve stenosis. Trace aortic valve regurgitation. 4-Tricuspid valve is moderately thickened, cannot rule out vegetation clinical correlation advised .mild tricuspid valve regurgitation. 5-Pulmonary artery systolic pressure is within normal limits. 6-There is no pericardial effusion. 7-Right atrial pressure is around 5 mm of mercury. 8-No significant change since the prior echocardiogram study of the december. Karlee Grossman MD (Electronically Signed) Final Date: 21 July 2020 15:32 S
--- NOTE | 2020-07-20 07:54 | USCV_ITS ---
Fatuma Ching Age: 64 Gender: F : 1955 Exam Date: 07/20/2020 16:09 Ordering Phys: Francis Coley MD Technologist: Nay Hopkins [place] [facility] [place] Indication: SWELLING HISTORY: Lower extremity swelling. PROCEDURES: Venous duplex imaging was performed in bilateral lower extremities. The following venous structures were evaluated: common femoral vein, profunda vein, proximal portion of the greater saphenous vein, superficial femoral vein, and the popliteal vein. In addition, the posterior tibial and peroneal trunk were evaluated. Serial compression, augmentation maneuvers, and spectral Doppler flow evaluation were performed. FINDINGS: Normal 2-D Doppler and augmentation and compressibility throughout the lower extremity venous structures. Additional imaging through the proximal calf veins also reveals no thrombus. Limited evaluation of the greater saphenous vein is patent with no thrombus.. CONCLUSIONS No evidence of DVT in the above-mentioned identifiable veins. Dr Alli Loyola MD [facility] (Electronically Signed) Final Date: 20 July 2020 18:26 S
[2020-07-20] MEDS: escitalopram 10 mg Tablet 20 MG PO (09:52)
[2020-07-20] MEDS: clopidogrel 75 mg Tablet PO (09:52)
[2020-07-20] MEDS: aspirin 81 mg EC Tablet PO (09:52)
[2020-07-20 10:23] LABS: Anion Gap 14.9 (5-19); Blood Urea Nitrogen 24 mg/dL (8-23); Calcium 9.7 mg/dL (8.5-10.5); Carbon Dioxide 21 mmol/L (22-29); Chloride 104 mmol/L (98-107); Glomerular Filtration Rate 83.7 mL/min (90-130); Glucose 172 mg/dL (65-115); Osmolality Calculated 290 mOsm/kg (285-295); Potassium 3.9 mmol/L (3.5-5.1); Sodium 136 mmol/L (136-145)
[2020-07-20 11:44] LABS: Glucose Point of Care 221 mg/dL (70-110)
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
[2020-07-20] MEDS: HYDROcodone-acetaminophen 5-325 mg Tablet 1 TAB PO ×2 (12:09→21:06)
[2020-07-20 17:27] LABS: Glucose Point of Care 195 mg/dL (70-110)
[2020-07-20] MEDS: enoxaparin 100 mg/mL Syringe 90 MG SUBCUT (18:39)
--- NOTE | 2020-07-20 19:19 | PC.NURSE ---
0820 Spoke to Nuc Med, unable to do VQ scan stat because scan on other patietn already in progress. [address] Coley to report delay in VQ scan, also clarified am medications and NPO status. Ok for patient to have scan when ready, ok to give am meds as ordered, and patient may eat. 0850 Transported patient to Nuc Med with no issues 1000 Dr. Coley at bedside, reported redness to face and neck post Levaquin administration. Orders to continue to monitor. Discussed patient's low back pain, orders for [place]. 1430 Transported patient to MRI with ambulance crew. No issues.
--- NOTE | 2020-07-20 20:52 | PC.NURSE ---
Received bed side shift report from off going nurse. Pt's plan of care reviewed. Pt was asleep upon entering the room. Pt was easily wakened by touch. Pt is able to tell me where she, date of , and what day it was. Hand library paraprofessional bilateral weak but equal. Pt was was unable to push against my hands with her feet but was able to get up to the BSC with one person assist without any complications. Respirations are even and unlabored. No s/sx of distress noted. Pt sating 97% on 1LPM/NC. Pt denies using home 02. Pt report having 9/10 lower back pain even though she kept falling back to sleep during assessment. Pt didnt complain of any pain while getting up to the BSC. Pt was given prn pain medication for pain management. Pt denies any other pains or concerns at this time. Bed in lowest and locked position, call light and water within reach, x's 2 rails up. Bed alarm on. Will continue to monitor pt.
[2020-07-20] MEDS: atorvastatin 40 mg Tablet 80 MG PO (21:06)
[2020-07-21] VITALS (27 sets, daily range): BP systolic 94–134; BP diastolic 48–78; PULSE 80–101; RESP 16–30; TEMP 36.8–37; O2SAT 91–96
[2020-07-21 04:28] LABS: Basophils # 0.1 10^3/uL (0.0-0.1); Basophils % 0.7 %; Eosinophils # 0.1 10^3/uL (0.0-0.8); Eosinophils % 1.2 %; Hematocrit 39.3 % (37.0-47.0); Hemoglobin 12.9 g/dL (11.5-15.3); Lymphocytes # 0.9 10^3/uL (0.8-4.8); Mean Corpuscular HGB Conc 32.8 g/dL (30.0-36.0); Mean Corpuscular Hemoglobin 27.6 pg (28.0-34.0); Mean Platelet Volume 10.2 fL (7.4-10.4); Monocytes # 1.6 10^3/uL (0.2-0.9); Monocytes % 17.6 %; Neutrophils # 6.19 10^3/uL (1.8-7.7); Neutrophils % 70.3 %; Nucleated Red Blood Cells % 0 %; Platelet Count 153 10^3/cmm (130-400); Red Blood Count 4.68 10^6/uL (4.1-5.3); Red Cell Distribution Width 13.7 % (12.1-15.1); White Blood Count 8.8 10^3/uL (4.0-10.0)
[2020-07-21 05:18] LABS: Magnesium 1.6 mg/dL (1.7-2.3); Thyroid Stimulating Hormone 1.47 uIU/mL (0.27-4.20)
[2020-07-21 05:20] LABS: Procalcitonin 19.25 ng/mL (0-0.5)
[2020-07-21 05:30] LABS: Glucose Point of Care 199 mg/dL (70-110)
[2020-07-21 05:33] LABS: Anion Gap 13.8 (5-19); Blood Urea Nitrogen 27 mg/dL (8-23); Calcium 9.5 mg/dL (8.5-10.5); Carbon Dioxide 23 mmol/L (22-29); Chloride 103 mmol/L (98-107); Cholesterol 153 mg/dL (0-200); Glucose 157 mg/dL (65-115); HDL Cholesterol 15 mg/dL (60-100); LDL Cholesterol Calculated 86 mg/dL (50-129); LDL HDL Ratio 5.73 RATIO (0.00-3.22); Phosphorus 1.4 mg/dL (2.5-4.5); Potassium 3.8 mmol/L (3.5-5.1); Sodium 136 mmol/L (136-145); Triglycerides 261 mg/dL (0-150)
[2020-07-21] MEDS: enoxaparin 100 mg/mL Syringe 90 MG SUBCUT (06:30)
[2020-07-21] MEDS: ondansetron 4 MG Tablet PO ×2 (06:30→20:39)
[2020-07-21] MEDS: levoFLOXacin 750 mg Tablet PO (06:30)
[2020-07-21] MEDS: clopidogrel 75 mg Tablet PO (08:31)
[2020-07-21] MEDS: aspirin 81 mg EC Tablet PO (08:31)
[2020-07-21] MEDS: escitalopram 10 mg Tablet 20 MG PO (08:31)
[2020-07-21] MEDS: magnesium sulfate premix 2 GM/50 ML PIGGYBACK IV (08:33)
[2020-07-21] MEDS: phosphorus 250 mg Tablet PO ×2 (08:33→17:34)
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
[2020-07-21 17:29] LABS: Glucose Point of Care 134 mg/dL (70-110)
[2020-07-21 20:31] LABS: Glucose Point of Care 110 mg/dL (70-110)
[2020-07-21] MEDS: atorvastatin 40 mg Tablet 80 MG PO (20:36)
[2020-07-21] MEDS: HYDROcodone-acetaminophen 5-325 mg Tablet 1 TAB PO (20:36)
[2020-07-21 20:46] LABS: Glucose Point of Care 142 mg/dL (70-110)
[2020-07-22] VITALS (28 sets, daily range): BP systolic 100–147; BP diastolic 63–97; PULSE 71–95; RESP 14–28; TEMP 36.6–37.2; O2SAT 90–96
[2020-07-22 04:45] LABS: Basophils # 0.1 10^3/uL (0.0-0.1); Basophils % 0.6 %; Eosinophils # 0.1 10^3/uL (0.0-0.8); Eosinophils % 0.8 %; Hematocrit 37.5 % (37.0-47.0); Hemoglobin 12.5 g/dL (11.5-15.3); Lymphocytes # 1.4 10^3/uL (0.8-4.8); Mean Corpuscular HGB Conc 33.3 g/dL (30.0-36.0); Mean Corpuscular Volume 83.9 fL (81-99); Mean Platelet Volume 10.3 fL (7.4-10.4); Monocytes # 1.5 10^3/uL (0.2-0.9); Monocytes % 16.4 %; Neutrophils % 65.5 %; Nucleated Red Blood Cells % 0 %; Platelet Count 148 10^3/cmm (130-400); Red Blood Count 4.47 10^6/uL (4.1-5.3); Red Cell Distribution Width 13.6 % (12.1-15.1); White Blood Count 8.8 10^3/uL (4.0-10.0)
[2020-07-22 05:25] LABS: Procalcitonin 10.96 ng/mL (0-0.5)
[2020-07-22 05:37] LABS: Albumin Level 2.8 g/dL (3.5-5.2); Anion Gap 12.5 (5-19); Blood Urea Nitrogen 22 mg/dL (8-23); C Reactive Protein 134.1 mg/L (0.0-4.9); Calcium 9.2 mg/dL (8.5-10.5); Carbon Dioxide 23 mmol/L (22-29); Chloride 103 mmol/L (98-107); Glomerular Filtration Rate 159.7 mL/min (90-130); Glucose 91 mg/dL (65-115); Magnesium 1.8 mg/dL (1.7-2.3); Phosphorus 1.7 mg/dL (2.5-4.5); Potassium 3.5 mmol/L (3.5-5.1); Sodium 135 mmol/L (136-145)
[2020-07-22] MEDS: ondansetron 4 MG Tablet PO ×3 (06:10→22:09)
[2020-07-22] MEDS: levoFLOXacin 750 mg Tablet PO (06:10)
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
[2020-07-22 08:25] LABS: Glucose Point of Care 77 mg/dL (70-110)
[2020-07-22] MEDS: phosphorus 250 mg Tablet PO ×2 (08:58→17:21)
[2020-07-22] MEDS: aspirin 81 mg EC Tablet PO (08:58)
[2020-07-22] MEDS: clopidogrel 75 mg Tablet PO (08:58)
[2020-07-22] MEDS: enoxaparin 40 mg/0.4 mL Syringe SUBCUT (08:59)
[2020-07-22] MEDS: escitalopram 10 mg Tablet 20 MG PO (08:59)
[2020-07-22 11:29] LABS: Glucose Point of Care 156 mg/dL (70-110)
--- NOTE | 2020-07-22 12:18 | PC.SOCIAL ---
IMM Update Pg. 2 of IMM updated and reviewed with patient who verbalized understanding. Copy provided.
[2020-07-22 17:22] LABS: Glucose Point of Care 181 mg/dL (70-110)
[2020-07-22] MEDS: HYDROcodone-acetaminophen 5-325 mg Tablet 1 TAB PO (19:34)
[2020-07-22 20:39] LABS: Glucose Point of Care 193 mg/dL (70-110)
[2020-07-22] MEDS: atorvastatin 40 mg Tablet 80 MG PO (20:43)
[2020-07-23] VITALS (34 sets, daily range): BP systolic 100–166; BP diastolic 49–130; PULSE 70–86; RESP 13–27; TEMP 36.6–37.2; O2SAT 81–98
[2020-07-23 04:53] LABS: Basophils % 0.3 %; Eosinophils # 0.1 10^3/uL (0.0-0.8); Eosinophils % 0.7 %; Hematocrit 42.2 % (37.0-47.0); Hemoglobin 14.1 g/dL (11.5-15.3); Lymphocytes # 2.2 10^3/uL (0.8-4.8); Lymphocytes % 23.2 %; Mean Corpuscular HGB Conc 33.4 g/dL (30.0-36.0); Mean Corpuscular Volume 83.7 fL (81-99); Mean Platelet Volume 10.2 fL (7.4-10.4); Monocytes # 1.5 10^3/uL (0.2-0.9); Monocytes % 15.9 %; Neutrophils # 5.53 10^3/uL (1.8-7.7); Nucleated Red Blood Cells % 0 %; Platelet Count 189 10^3/cmm (130-400); Red Blood Count 5.04 10^6/uL (4.1-5.3); Red Cell Distribution Width 13.6 % (12.1-15.1); White Blood Count 9.4 10^3/uL (4.0-10.0)
[2020-07-23 05:07] LABS: Procalcitonin 5.57 ng/mL (0-0.5)
[2020-07-23 05:20] LABS: Alanine Aminotransferase 19 U/L (0-33); Albumin Level 3.3 g/dL (3.5-5.2); Alkaline Phosphatase 80 IU/L (35-105); Anion Gap 14.5 (5-19); Aspartate Amino Transferase 19 U/L (0-32); Blood Urea Nitrogen 14 mg/dL (8-23); C Reactive Protein 97.3 mg/L (0.0-4.9); Calcium 9.7 mg/dL (8.5-10.5); Carbon Dioxide 25 mmol/L (22-29); Chloride 101 mmol/L (98-107); Glomerular Filtration Rate 123.4 mL/min (90-130); Glucose 71 mg/dL (65-115); Magnesium 1.6 mg/dL (1.7-2.3); Osmolality Calculated 283 mOsm/kg (285-295); Potassium 3.5 mmol/L (3.5-5.1); Sodium 137 mmol/L (136-145); Total Bilirubin 0.4 mg/dL (0.15-1.2)
[2020-07-23 05:32] LABS: Slide Review Slide Review Perform
[2020-07-23 06:14] LABS: D Dimer 1.12 ug/mIFEU (0-0.59)
[2020-07-23 06:29] LABS: Glucose Point of Care 69 mg/dL (70-110)
[2020-07-23] MEDS: dextrose 50% syringe 50 mL 25 ML IVP (06:43)
[2020-07-23 08:17] LABS: Glucose Point of Care 74 mg/dL (70-110)
[2020-07-23] MEDS: levoFLOXacin 750 mg Tablet PO (08:40)
[2020-07-23] MEDS: aspirin 81 mg EC Tablet PO (08:41)
[2020-07-23] MEDS: escitalopram 10 mg Tablet 20 MG PO (08:41)
[2020-07-23] MEDS: clopidogrel 75 mg Tablet PO (08:41)
[2020-07-23] MEDS: ondansetron 4 MG Tablet PO ×2 (08:41→15:33)
[2020-07-23] MEDS: enoxaparin 40 mg/0.4 mL Syringe SUBCUT (08:44)
--- NOTE | 2020-07-23 09:07 | PC.CHAP ---
Pastoral Care Encounter/Spiritual Assessment Type of Contact [] Declined residential specialist visit [] Patient/Family/Request visit [] Outpatient visit [] Follow-up visit [] Physician referral [] Code/Alert [x] Routine visit [] Staff referral [] Actively dying [] Patient sleeping [] Family support [] [] Out of room [] Palliative care [] [] Receiving care in room [] Pre-surgical visit [] Trauma [] Long length of stay [x] ICU visit [x] Other: outside room Relational/Emotional Strength [] Patient feels connected with others/family/visitors/staff [] Distress [] Loneliness/isolation [] Abandonment Spirituality of Patient [] Person of Viri [] Attends Protestant of their Viri [] Believes in Prayer [] Reads Bible or Hinduism materials [] There are Spiritual issues to be addressed Ward Aide Interventions [x] Prayer [] Active listening [] Non-anxious presence [] Spiritual/emotional support [] Crisis/trauma care [] Spiritual counseling [] Bereavement support [] Provided bereavement packet [] Provided Bible/devotional materials [] Provided toy/stuffed animal, coloring book to patient or family member [] Provided Communion [] Anointing/[place] [] Salvation [x] Completed spiritual assessment [] Other: Impact on Illness or Injury [] Angry [] Fearful [] Anxious [] Often cries [] Exhaustion [] Unable to work [] Unable to attend rastafarian [] Unable to walk/stand [] Unable to read [] Unable to drive [] Unable to eat/drink [] Unable to sleep [] Unable to be with family [] Patient intubated [] Other: Summary Time spent with patient
[2020-07-23 09:32] LABS: Glucose Point of Care 133 mg/dL (70-110)
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
[2020-07-23 13:31] LABS: Erythrocyte Sedimentation Rate 77 mm/hr (0-15)
[2020-07-23 13:51] LABS: Creatine Phosphokinase 72 U/L (26-192)
[2020-07-23 14:11] LABS: Add Urine Microscopic? YES; Bilirubin Urine 1+ (Negative); Blood Urine 3+ (Negative); Glucose Urine UA 4+ (Normal); Ketones Urine Negative (Negative); Nitrate Urine Negative (Negative); Specific Gravity, Urine 1.015 (1.005-1.030); Urine Appearance Clear (CLEAR); Urine Color Dark Yellow (Yellow); Urobilinogen Urine 1 mg/dL (Negative); pH Urine 5 (5-7)
[2020-07-23 14:12] LABS: Bacteria Urine 1+ /hpf; Leukocyte Esterase Urine Trace (Negative); Mucus Urine 2+ /hpf; Protein Urine Trace (Negative); Squamous Epithelial Cell Urine 0-4 /hpf (0-5); WBC Urine 15-25 /hpf (0-5)
[2020-07-23 14:13] LABS: Add Urine Culture? Yes
[2020-07-23 14:52] LABS: Globulin 2.6 g/dL (1.3-4.6); Total Protein 5.9 g/dL (6.6-8.7)
[2020-07-23] MEDS: cefTRIAXone 1,000 MG in sodium chloride 0.9% (plus) 50 ML 100 MG IV (15:33)
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
[2020-07-23 16:36] LABS: Glucose Point of Care 224 mg/dL (70-110)
[2020-07-23 17:23] LABS: Glucose Point of Care 233 mg/dL (70-110)
--- NOTE | 2020-07-23 20:25 | PC.NURSE ---
Received bed side shift report from off going nurse. Pt's plan of care reviewed. Pt is resting in bed. Respirations are even and unlabored. No s/sx of distress noted. Pt is alert and oriented and able to make her own decisions. Pt appears to be doing a lot better physically and mentally. Pt is now able to ambulate with a walker to the bathroom. Pt c/o chronic back pain and rates pain 8 out of 10. Pt received prn pain medication for pain management. Pt denies any other pains or concerns at this time. Bed in lowest and locked position, call light and water within reach, x's 2 rails up. Pt is very pleasant and cooperative with care.
[2020-07-23] MEDS: atorvastatin 40 mg Tablet 80 MG PO (21:44)
[2020-07-23] MEDS: HYDROcodone-acetaminophen 5-325 mg Tablet 1 TAB PO (21:44)
--- NOTE | 2020-07-23 23:28 | PC.NURSE ---
Pt transferred from ICU to CSU. All belongings were transferred with patient.
[2020-07-24] VITALS (10 sets, daily range): BP systolic 112–163; BP diastolic 64–78; PULSE 70–93; RESP 15–30; TEMP 36.6–37.3; O2SAT 90–98
[2020-07-24 00:05] LABS: Glucose Point of Care 191 mg/dL (70-110)
[2020-07-24 05:23] LABS: Basophils % 0.3 %; Eosinophils # 0.1 10^3/uL (0.0-0.8); Eosinophils % 1.5 %; Hematocrit 42.3 % (37.0-47.0); Hemoglobin 12.7 g/dL (11.5-15.3); Lymphocytes # 2.7 10^3/uL (0.8-4.8); Lymphocytes % 31.4 %; Mean Corpuscular Volume 93.2 fL (81-99); Mean Platelet Volume 10.2 fL (7.4-10.4); Monocytes # 1.5 10^3/uL (0.2-0.9); Monocytes % 17.2 %; Neutrophils # 4.14 10^3/uL (1.8-7.7); Neutrophils % 47.8 %; Nucleated Red Blood Cells % 0 %; Platelet Count 170 10^3/cmm (130-400); Red Blood Count 4.54 10^6/uL (4.1-5.3); Red Cell Distribution Width 13.6 % (12.1-15.1); White Blood Count 8.7 10^3/uL (4.0-10.0)
[2020-07-24] MEDS: ondansetron 4 MG Tablet PO ×3 (06:09→21:46)
[2020-07-24 06:12] LABS: Alanine Aminotransferase 16 U/L (0-33); Albumin Level 2.9 g/dL (3.5-5.2); Alkaline Phosphatase 85 IU/L (35-105); Blood Urea Nitrogen 13 mg/dL (8-23); C Reactive Protein 49.3 mg/L (0.0-4.9); Calcium 9.5 mg/dL (8.5-10.5); Carbon Dioxide 25 mmol/L (22-29); Chloride 102 mmol/L (98-107); Globulin 2.4 g/dL (1.3-4.6); Glomerular Filtration Rate 123.4 mL/min (90-130); Glucose 168 mg/dL (65-115); Magnesium 1.6 mg/dL (1.7-2.3); Osmolality Calculated 290 mOsm/kg (285-295); Phosphorus 3.4 mg/dL (2.5-4.5); Sodium 138 mmol/L (136-145); Total Bilirubin 0.2 mg/dL (0.15-1.2); Total Protein 5.3 g/dL (6.6-8.7)
[2020-07-24 06:24] LABS: Anion Gap 15.2 (5-19); Aspartate Amino Transferase 17 U/L (0-32); Potassium 4.2 mmol/L (3.5-5.1)
[2020-07-24 06:51] LABS: NT Pro B Type Natriuretic Pept 325 pg/mL (0-125); Procalcitonin 3.07 ng/mL (0-0.5)
--- NOTE | 2020-07-24 07:00 | USCV_ITS ---
Fatuma Ching Age: 64 Gender: F : 1955 Exam Date: 07/24/2020 07:17 Ordering Phys: Francis Coley MD Technologist: Hany Reyes Exam Location: [facility] [place] Indication: ? TRI VEG BP: / HR: Rhythm: Sinus Technical Quality: Good MEASUREMENTS (Male / Female) Normal Values Medications Patient given IV sedation by anesthesia service, for details please refer to the anesthesia report. Complications None. Proc. Components The patient was brought to the ANMOL examination room in a fasting state after obtaining an informed consent. The ANMOL probe was passed into the posterior pharynx , mid-esophagus, distal esophagus, and gastric fundus. ANMOL was performed at multiple levels. The patient tolerated the procedure well and there were no complications. FINDINGS Left Ventricle Normal left ventricular cavity size. Normal left ventricular systolic function. No regional wall motion abnormalities. Left ventricular ejection fraction is estimated at 55 %. Right Ventricle The right ventricle is normal in size and function. Right Atrium The right atrium is normal in size. Left Atrium The left atrium is normal in size. LA Appendage The LA appendage is normal. IA Septum Normal interatrial septum. Mitral Valve Structurally normal mitral valve without significant stenosis or prolapse. There is no mitral regurgitation. Aortic Valve Moderate aortic valve calcification. No aortic valve stenosis. No aortic valve regurgitation. Tricuspid Valve Structurally normal tricuspid valve. Trace tricuspid valve regurgitation. Pulmonic Valve Structurally normal pulmonic valve. No pulmonary valve regurgitation. Pericardium Normal pericardium without effusion. Aorta Normal ascending aorta dimension. CONCLUSIONS 1-Normal left ventricular cavity size. Normal left ventricular systolic function. No regional wall motion abnormalities. Left ventricular ejection fraction is estimated at 55 %. 2-Structurally normal tricuspid valve. Trace tricuspid valve regurgitation. 3-Moderate aortic valve calcification. No aortic valve stenosis. No aortic valve regurgitation. 4-Structurally normal pulmonic valve. No pulmonary valve regurgitation. 5-There is no pericardial effusion. 6-There are no prior echocardiogram studies to compare. Karlee Grossman MD (Electronically Signed) Final Date: 24 July 2020 18:24 S
--- NOTE | 2020-07-24 07:05 | P.ANESASSM_ITS ---
Pre-Anesthetic Assessment Pre-Anesthetic Assessment: Height/Weight: Height 1.63 m Weight 78.471 kg Temp Pulse Resp BP Pulse Ox 98 F 70 18 135/74 93 07/24/20 04:47 07/24/20 04:47 07/24/20 04:47 07/24/20 04:47 07/24/20 04:47 Preop Diagnosis: Previous stroke Proposed Procedure: Operation Date: 07/24/20 07:00 Proposed Procedures p ANMOL (Transesophageal Echocardiogram)(Not Applicable) - Karlee Grossman MD Familial anesthetic complications: none Was Beta Ajck taken within 24 hours: N/A Last intake: 07/23/20 1900 Last Intake: 19:00 Social: Social History: No alcohol and No tobacco Exam: Pre-Anes Outpt Exam: alert and oriented x 3 Airway: Submandibular: WNL Cervical ROM: WNL MP: 2 Dentition: Chipped and Loose Additional comments: poor dentition History/ROS: No significant history except as noted Pulmonary: Pulmonary: None reported CV/HEM: CV/HEM: HTN : : None reported Comments: previous acute kidney injury. Hepatic: Hepatic: None reported GI: GI: None reported Metabolic: Metabolic: DM Musc/skel: Musc/skel: Lower Back Pain Neuropsych: Comments: recent stroke Anesthetic Plan: ASA status: 3 Anesthesia: Anesthesia Evaluation and MAC Risk of > 500 ml blood loss (7ml/kg in children): No Meds/Allergies Current Medications: Current Medications Generic Name Dose Route Start Last Admin Trade Name Freq PRN Reason Stop Dose Admin Aspirin 81 mg 07/20/20 09:00 07/23/20 08:41 Aspirin 81 Mg Ec Tablet PO 81 mg DAILY GHULAM Administration Atorvastatin Calci um 80 mg 07/20/20 21:00 07/23/20 21:44 Atorvastatin 40 Mg Tablet PO 80 mg BEDTIME GHULAM Administration Clopidogrel Bisulf ate 75 mg 07/20/20 09:00 07/23/20 08:41 Clopidogrel 75 M g Tablet PO 75 mg DAILY GHULAM Administration Dextrose 25 ml 07/19/20 22:44 07/23/20 06:43 Dextrose 50% Syr vineet 50 Ml IVP 25 ml ONCE PRN Administration hypoglycemia prot ocol Protocol Enoxaparin Sodium 40 mg 07/22/20 09:00 07/23/20 08:44 Enoxaparin 40 Mg /0.4 Ml Syringe SUBCUT 40 mg Q24H GHULAM Administration Escitalopram Oxala te 20 mg 07/20/20 09:00 07/23/20 08:41 Escitalopram 10 Mg Tablet PO 20 mg DAILY GHULAM Administration Ceftriaxone Sodium 1,000 mg/ 50 mls @ 100 mls/ hr 07/23/20 13:00 07/23/20 21:40 Sodium Chloride IV Infused Q24H GHULAM Infusion Protocol Insulin Aspart 0 unit 07/20/20 08:00 07/23/20 21:53 Insulin Aspart 1 00 Unit/1 Ml SUBCUT 6 unit WM&BEDTIME GHULAM Administration Protocol Insulin Detemir 50 unit 07/23/20 21:00 07/23/20 21:53 Insulin Detemir 100 Units/1 Ml SUBCUT 50 unit BEDTIME GHULAM Administration Ondansetron HCl 4 mg 07/19/20 22:44 07/24/20 06:09 Ondansetron 4 Mg Tablet PO 4 mg Q8H GHULAM Administration Zolpidem Tartrate 10 mg 07/23/20 23:08 07/23/20 23:46 Zolpidem 10 Mg T ablet PO 10 mg BEDTIME GHULAM Administration Additional Medication Information: Generic Name Dose Route Start Last Admin Trade Name Freq PRN Reason Stop Dose Admin Hydrocodone Bitart /Acetaminophen 1 tab 07/20/20 10:21 07/21/20 20:36 Hydrocodone-Acet aminophen 5-325 Mg Tablet PO 1 tab Q6H PRN Administration MODERATE PAIN Aspirin 81 mg 07/20/20 09:00 07/22/20 08:58 Aspirin 81 Mg Ec Tablet PO 81 mg DAILY GHULAM Administration Atorvastatin Calci um 80 mg 07/20/20 21:00 07/21/20 20:36 Atorvastatin 40 Mg Tablet PO 80 mg BEDTIME GHULAM Administration Clopidogrel Bisulf ate 75 mg 07/20/20 09:00 07/22/20 08:58 Clopidogrel 75 M g Tablet PO 75 mg DAILY GHULAM Administration Enoxaparin Sodium 40 mg 07/22/20 09:00 07/22/20 08:59 Enoxaparin 40 Mg /0.4 Ml Syringe SUBCUT 40 mg Q24H GHULAM Administration Escitalopram Oxala te 20 mg 07/20/20 09:00 07/22/20 08:59 Escitalopram 10 Mg Tablet PO 20 mg DAILY GHULAM Administration Insulin Human Regu lar 250 unit 252.5 mls @ 0 mls /hr 07/19/20 22:44 07/20/20 04:36 / Sodium Chlorid e IV 0 unit/hr .Q0M GHULAM 0 mls/hr Titration Protocol Per Protocol Insulin Aspart 0 unit 07/20/20 08:00 07/22/20 08:21 Insulin Aspart 1 00 Unit/1 Ml SUBCUT Not Given WM&BEDTIME GHULAM Protocol Insulin Detemir 70 unit 07/19/20 22:44 07/21/20 22:13 Insulin Detemir 100 Units/1 Ml SUBCUT 70 unit BEDTIME GHULAM Administration Levofloxacin 750 mg 07/20/20 06:00 07/22/20 06:10 Levofloxacin 750 Mg Tablet PO 750 mg DAILY@0600 GHULAM Administration Protocol Ondansetron HCl 4 mg 07/19/20 22:44 07/22/20 06:10 Ondansetron 4 Mg Tablet PO 4 mg Q8H GHULAM Administration Potassium Phosphat e 250 mg 07/22/20 09:00 07/22/20 08:58 Phosphorus 250 M g Tablet PO 07/22/20 18:01 250 mg BID GHULAM Administration PFSH Anesthesia PFSH: Medical History 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 Degenerative disc disease Lumbar disc disease with radiculopathy Type 2 diabetes mellitus Surgical History No pertinent past surgical history Family History Other CAD (coronary artery disease) Diabetes Social History Smoking and tobacco status: never smoked Alcohol intake: never Caregiver/support person: Yes Lives independently: Yes Household members: caregiver Housing: House History of recent travel: No Data Anesthesia CBC & Chem 7: 07/23/20 04:18 07/24/20 04:16 Other Labs: Laboratory Results - last 48 hr 07/22/20 07/22/20 07/22/20 08:12 11:05 16:56 WBC RBC Hgb Hct MCV MCH MCHC RDW Plt Count MPV Neut % (Auto) Lymph % (Auto) [place] % (Auto) Eos % (Auto) Baso % (Auto) Neut # (Auto) Lymph # (Auto) [place] # (Auto) Eos # (Auto) Baso # (Auto) Nucleated RBC % (auto) Nucleated RBCs # ESR D-Dimer Sodium Potassium Chloride Carbon Dioxide Anion Gap BUN Creatinine GFR Calculation Glucose POC Glucose 77 156 H 181 H Calculated Osmolality Calcium Phosphorus Magnesium Total Bilirubin AST ALT Alkaline Phosphatase Creatine Kinase C-Reactive Protein NT-Pro-B Natriuret Pep Total Protein Albumin Globulin Procalcitonin Urine Color Urine Appearance Urine pH Ur Specific Wink Urine Protein Urine Glucose (UA) Urine Ketones Urine Blood Urine Nitrate Urine Bilirubin Urine Urobilinogen Ur Leukocyte Esterase Urine RBC Urine WBC Ur Squamous Epith Cells Amorphous Sediment Urine Bacteria Urine Mucus 07/22/20 07/23/20 07/23/20 20:36 04:10 04:10 WBC RBC Hgb Hct MCV MCH MCHC RDW Plt Count MPV Neut % (Auto) Lymph % (Auto) [place] % (Auto) Eos % (Auto) Baso % (Auto) Neut # (Auto) Lymph # (Auto) [place] # (Auto) Eos # (Auto) Baso # (Auto) Nucleated RBC % (auto) Nucleated RBCs # ESR 77 H D-Dimer Sodium Potassium Chloride Carbon Dioxide Anion Gap BUN Creatinine GFR Calculation Glucose POC Glucose 193 H Calculated Osmolality Calcium Phosphorus Magnesium Total Bilirubin AST ALT Alkaline Phosphatase Creatine Kinase 72 C-Reactive Protein NT-Pro-B Natriuret Pep Total Protein Albumin Globulin Procalcitonin Urine Color Urine Appearance Urine pH Ur Specific Wink Urine Protein Urine Glucose (UA) Urine Ketones Urine Blood Urine Nitrate Urine Bilirubin Urine Urobilinogen Ur Leukocyte Esterase Urine RBC Urine WBC Ur Squamous Epith Cells Amorphous Sediment Urine Bacteria Urine Mucus 07/23/20 07/23/20 07/23/20 04:18 04:18 04:18 WBC 9.4 RBC 5.04 Hgb 14.1 Hct 42.2 MCV 83.7 MCH 28.0 MCHC 33.4 RDW 13.6 Plt Count 189 MPV 10.2 Neut % (Auto) 59.0 Lymph % (Auto) 23.2 [place] % (Auto) 15.9 Eos % (Auto) 0.7 Baso % (Auto) 0.3 Neut # (Auto) 5.53 Lymph # (Auto) 2.2 [place] # (Auto) 1.5 H Eos # (Auto) 0.1 Baso # (Auto) 0.0 Nucleated RBC % (auto) 0 Nucleated RBCs # 0.0 ESR D-Dimer 1.12 H Sodium 137 Potassium 3.5 Chloride 101 Carbon Dioxide 25 Anion Gap 14.5 BUN 14 Creatinine 0.5 GFR Calculation 123.4 Glucose 71 POC Glucose Calculated Osmolality 283 L Calcium 9.7 Phosphorus Magnesium 1.6 L Total Bilirubin 0.4 AST 19 ALT 19 Alkaline Phosphatase 80 Creatine Kinase C-Reactive Protein 97.3 H NT-Pro-B Natriuret Pep Total Protein 5.9 L Albumin 3.3 L Globulin 2.6 Procalcitonin 5.57 H Urine Color Urine Appearance Urine pH Ur Specific Wink Urine Protein Urine Glucose (UA) Urine Ketones Urine Blood Urine Nitrate Urine Bilirubin Urine Urobilinogen Ur Leukocyte Esterase Urine RBC Urine WBC Ur Squamous Epith Cells Amorphous Sediment Urine Bacteria Urine Mucus 07/23/20 07/23/20 07/23/20 06:27 08:14 09:29 WBC RBC Hgb Hct MCV MCH MCHC RDW Plt Count MPV Neut % (Auto) Lymph % (Auto) [place] % (Auto) Eos % (Auto) Baso % (Auto) Neut # (Auto) Lymph # (Auto) [place] # (Auto) Eos # (Auto) Baso # (Auto) Nucleated RBC % (auto) Nucleated RBCs # ESR D-Dimer Sodium Potassium Chloride Carbon Dioxide Anion Gap BUN Creatinine GFR Calculation Glucose POC Glucose 69 L 74 133 H Calculated Osmolality Calcium Phosphorus Magnesium Total Bilirubin AST ALT Alkaline Phosphatase Creatine Kinase C-Reactive Protein NT-Pro-B Natriuret Pep Total Protein Albumin Globulin Procalcitonin Urine Color Urine Appearance Urine pH Ur Specific Wink Urine Protein Urine Glucose (UA) Urine Ketones Urine Blood Urine Nitrate Urine Bilirubin Urine Urobilinogen Ur Leukocyte Esterase Urine RBC Urine WBC Ur Squamous Epith Cells Amorphous Sediment Urine Bacteria Urine Mucus 07/23/20 07/23/20 07/23/20 11:36 13:10 17:20 WBC RBC Hgb Hct MCV MCH MCHC RDW Plt Count MPV Neut % (Auto) Lymph % (Auto) [place] % (Auto) Eos % (Auto) Baso % (Auto) Neut # (Auto) Lymph # (Auto) [place] # (Auto) Eos # (Auto) Baso # (Auto) Nucleated RBC % (auto) Nucleated RBCs # ESR D-Dimer Sodium Potassium Chloride Carbon Dioxide Anion Gap BUN Creatinine GFR Calculation Glucose POC Glucose 224 H 233 H Calculated Osmolality Calcium Phosphorus Magnesium Total Bilirubin AST ALT Alkaline Phosphatase Creatine Kinase C-Reactive Protein NT-Pro-B Natriuret Pep Total Protein Albumin Globulin Procalcitonin Urine Color Dark yellow Urine Appearance Clear Urine pH 5 Ur Specific Wink 1.015 Urine Protein Trace Urine Glucose (UA) 4+ H Urine Ketones Negative Urine Blood 3+ H Urine Nitrate Negative Urine Bilirubin 1+ H Urine Urobilinogen 1 H Ur Leukocyte Esterase Trace H Urine RBC 5-10 H Urine WBC 15-25 H Ur Squamous Epith Cells 0-4 H Amorphous Sediment Not Reportable Urine Bacteria 1+ H Urine Mucus 2+ 07/23/20 07/24/20 07/24/20 21:49 04:16 04:16 WBC RBC Hgb Hct MCV MCH MCHC RDW Plt Count MPV Neut % (Auto) Lymph % (Auto) [place] % (Auto) Eos % (Auto) Baso % (Auto) Neut # (Auto) Lymph # (Auto) [place] # (Auto) Eos # (Auto) Baso # (Auto) Nucleated RBC % (auto) Nucleated RBCs # ESR D-Dimer Sodium 138 Potassium 4.2 Chloride 102 Carbon Dioxide 25 Anion Gap 15.2 BUN 13 Creatinine 0.5 GFR Calculation 123.4 Glucose 168 H POC Glucose 191 H Calculated Osmolality 290 Calcium 9.5 Phosphorus 3.4 Magnesium 1.6 L Total Bilirubin 0.2 AST 17 ALT 16 Alkaline Phosphatase 85 Creatine Kinase C-Reactive Protein 49.3 H NT-Pro-B Natriuret Pep 325 H Total Protein 5.3 L Albumin 2.9 L Globulin 2.4 Procalcitonin 3.07 H Urine Color Urine Appearance Urine pH Ur Specific Wink Urine Protein Urine Glucose (UA) Urine Ketones Urine Blood Urine Nitrate Urine Bilirubin Urine Urobilinogen Ur Leukocyte Esterase Urine RBC Urine WBC Ur Squamous Epith Cells Amorphous Sediment Urine Bacteria Urine Mucus Micro: Microbiology 07/22/20 10:12 Blood Culture - Preliminary Blood NEGATIVE TO DATE 07/22/20 10:12 Blood Culture - Preliminary Blood NEGATIVE TO DATE Cardiac Studies: No Data to Display
[2020-07-24 07:18] LABS: Slide Review Slide Review Perform
--- NOTE | 2020-07-24 07:28 | PC.NURSE ---
ANMOL started: [id number] ANMOL complete Vital signs stable through out
--- NOTE | 2020-07-24 08:00 | PC.NURSE ---
patient moved to room 101 to perform ANMOL. time out performed, vitals stable throughout, patient then moved back to 1122 vitals stable. call light within reach. patient requesting coffee at this time.
--- NOTE | 2020-07-24 08:25 | PC.NURSE ---
dr virgen at bedside and gave verbal order for ccc diet and that patient could have coffee.
[2020-07-24 08:26] LABS: Glucose Point of Care 121 mg/dL (70-110)
[2020-07-24] MEDS: escitalopram 10 mg Tablet 20 MG PO (09:06)
[2020-07-24] MEDS: magnesium oxide 400 mg tablet PO ×2 (09:06→17:20)
[2020-07-24] MEDS: enoxaparin 40 mg/0.4 mL Syringe SUBCUT (09:06)
[2020-07-24] MEDS: clopidogrel 75 mg Tablet PO (09:06)
[2020-07-24] MEDS: aspirin 81 mg EC Tablet PO (09:06)
[2020-07-24 11:32] LABS: Glucose Point of Care 203 mg/dL (70-110)
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
--- NOTE | 2020-07-24 11:51 | DCPLANNER ---
IMM completed on 07/24/20 @ 6285. Copy of rights givne to pt.
[2020-07-24] MEDS: cefTRIAXone 1,000 MG in sodium chloride 0.9% (plus) 50 ML 100 MG IV (12:20)
[2020-07-24 16:29] LABS: Glucose Point of Care 224 mg/dL (70-110)
[2020-07-24 21:24] LABS: Glucose Point of Care 220 mg/dL (70-110)
[2020-07-24] MEDS: atorvastatin 40 mg Tablet 80 MG PO (21:46)
[2020-07-25] VITALS (11 sets, daily range): BP systolic 120–145; BP diastolic 56–88; PULSE 73–86; RESP 12–33; TEMP 36.6–37.2; O2SAT 73–94
[2020-07-25 05:08] LABS: Basophils # 0.1 10^3/uL (0.0-0.1); Basophils % 0.5 %; Eosinophils # 0.1 10^3/uL (0.0-0.8); Eosinophils % 1.1 %; Hematocrit 36.5 % (37.0-47.0); Hemoglobin 11.9 g/dL (11.5-15.3); Lymphocytes % 24.4 %; Mean Corpuscular HGB Conc 32.6 g/dL (30.0-36.0); Mean Corpuscular Hemoglobin 27.7 pg (28.0-34.0); Mean Corpuscular Volume 85.1 fL (81-99); Mean Platelet Volume 9.5 fL (7.4-10.4); Monocytes # 1.9 10^3/uL (0.2-0.9); Monocytes % 15.6 %; Neutrophils # 6.79 10^3/uL (1.8-7.7); Neutrophils % 56.2 %; Nucleated Red Blood Cells % 0 %; Platelet Count 205 10^3/cmm (130-400); Red Blood Count 4.29 10^6/uL (4.1-5.3); Red Cell Distribution Width 13.3 % (12.1-15.1); White Blood Count 12.1 10^3/uL (4.0-10.0)
[2020-07-25 05:50] LABS: Alanine Aminotransferase 15 U/L (0-33); Albumin Level 2.9 g/dL (3.5-5.2); Alkaline Phosphatase 76 IU/L (35-105); Anion Gap 11.6 (5-19); Aspartate Amino Transferase 13 U/L (0-32); Blood Urea Nitrogen 10 mg/dL (8-23); C Reactive Protein 88.7 mg/L (0.0-4.9); Calcium 9.6 mg/dL (8.5-10.5); Carbon Dioxide 29 mmol/L (22-29); Chloride 100 mmol/L (98-107); Globulin 3.1 g/dL (1.3-4.6); Glomerular Filtration Rate 123.4 mL/min (90-130); Glucose 173 mg/dL (65-115); Magnesium 1.6 mg/dL (1.7-2.3); Osmolality Calculated 287 mOsm/kg (285-295); Phosphorus 3.3 mg/dL (2.5-4.5); Potassium 3.6 mmol/L (3.5-5.1); Sodium 137 mmol/L (136-145); Total Bilirubin 0.5 mg/dL (0.15-1.2)
--- NOTE | 2020-07-25 06:15 | PC.NURSE ---
Patient refused Zofran this morning saying, I don't feel I need it this morning.
[2020-07-25 06:37] LABS: NT Pro B Type Natriuretic Pept 782 pg/mL (0-125); Procalcitonin 1.64 ng/mL (0-0.5)
[2020-07-25 06:46] LABS: Glucose Point of Care 176 mg/dL (70-110)
[2020-07-25] MEDS: aspirin 81 mg EC Tablet PO (08:40)
[2020-07-25] MEDS: enoxaparin 40 mg/0.4 mL Syringe SUBCUT (08:40)
[2020-07-25] MEDS: clopidogrel 75 mg Tablet PO (08:40)
[2020-07-25] MEDS: magnesium oxide 400 mg tablet PO ×2 (08:40→17:28)
[2020-07-25] MEDS: escitalopram 10 mg Tablet 20 MG PO (08:40)
--- NOTE | 2020-07-25 10:22 | PC.NURSE ---
patient ambulated in the del cid with physical therapy this morning. patient is now resting in bed with call light in reach and no needs identified at this time.
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
[2020-07-25 11:55] LABS: Glucose Point of Care 179 mg/dL (70-110)
[2020-07-25] MEDS: cefTRIAXone 1,000 MG in sodium chloride 0.9% (plus) 50 ML 100 MG IV (12:45)
[2020-07-25 14:34] LABS: COMPLEMENT, TOTAL (CH50) >60 U/mL (31-60)
[2020-07-25 14:48] LABS: COMPLEMENT COMPONENT C3C 165 mg/dL (83-193); COMPLEMENT COMPONENT C4C 22 mg/dL (15-57); THYROID PEROXIDASE ANTIBODIES <1 IU/mL (<9)
--- NOTE | 2020-07-25 16:08 | PC.NURSE ---
PATIENT REFUSED ZOFRAN AT THIS TIME.
[2020-07-25 17:01] LABS: Glucose Point of Care 191 mg/dL (70-110)
[2020-07-25 20:31] LABS: Glucose Point of Care 223 mg/dL (70-110)
[2020-07-25] MEDS: ondansetron 4 MG Tablet PO (20:52)
[2020-07-25] MEDS: atorvastatin 40 mg Tablet 80 MG PO (20:52)
[2020-07-26] VITALS (9 sets, daily range): BP systolic 107–156; BP diastolic 60–75; PULSE 69–98; RESP 14–25; TEMP 36.6–38.5; O2SAT 92–93
[2020-07-26 05:20] LABS: Basophils # 0.1 10^3/uL (0.0-0.1); Basophils % 0.6 %; Eosinophils # 0.1 10^3/uL (0.0-0.8); Eosinophils % 0.9 %; Hematocrit 36.5 % (37.0-47.0); Hemoglobin 11.9 g/dL (11.5-15.3); Lymphocytes # 1.9 10^3/uL (0.8-4.8); Lymphocytes % 16.8 %; Mean Corpuscular HGB Conc 32.6 g/dL (30.0-36.0); Mean Corpuscular Hemoglobin 27.7 pg (28.0-34.0); Mean Corpuscular Volume 85.1 fL (81-99); Mean Platelet Volume 9.5 fL (7.4-10.4); Monocytes # 1.9 10^3/uL (0.2-0.9); Monocytes % 16.3 %; Neutrophils # 7.17 10^3/uL (1.8-7.7); Neutrophils % 62.3 %; Nucleated Red Blood Cells % 0 %; Platelet Count 217 10^3/cmm (130-400); Red Blood Count 4.29 10^6/uL (4.1-5.3); Red Cell Distribution Width 13.2 % (12.1-15.1); White Blood Count 11.5 10^3/uL (4.0-10.0)
[2020-07-26 06:06] LABS: Alanine Aminotransferase 17 U/L (0-33); Albumin Level 2.9 g/dL (3.5-5.2); Alkaline Phosphatase 92 IU/L (35-105); Anion Gap 12.6 (5-19); Aspartate Amino Transferase 19 U/L (0-32); Blood Urea Nitrogen 10 mg/dL (8-23); C Reactive Protein 88.6 mg/L (0.0-4.9); Calcium 9.4 mg/dL (8.5-10.5); Carbon Dioxide 31 mmol/L (22-29); Chloride 98 mmol/L (98-107); Globulin 3.3 g/dL (1.3-4.6); Glomerular Filtration Rate 159.7 mL/min (90-130); Glucose 84 mg/dL (65-115); Magnesium 1.6 mg/dL (1.7-2.3); Osmolality Calculated 284 mOsm/kg (285-295); Phosphorus 2.5 mg/dL (2.5-4.5); Potassium 3.6 mmol/L (3.5-5.1); Sodium 138 mmol/L (136-145); Total Bilirubin 0.4 mg/dL (0.15-1.2); Total Protein 6.2 g/dL (6.6-8.7)
[2020-07-26 06:10] LABS: NT Pro B Type Natriuretic Pept 630 pg/mL (0-125); Procalcitonin 1.23 ng/mL (0-0.5)
--- NOTE | 2020-07-26 06:41 | PC.NURSE ---
Phillip from [facility] in patient's room to obtain blood from existing IV. Patient tolerated well. Line was flushed.
[2020-07-26 06:51] LABS: Glucose Point of Care 75 mg/dL (70-110)
[2020-07-26] MEDS: HYDROcodone-acetaminophen 10-325 mg Tablet 1 TAB PO (08:34)
[2020-07-26] MEDS: clopidogrel 75 mg Tablet PO (08:35)
[2020-07-26] MEDS: escitalopram 10 mg Tablet 20 MG PO (08:35)
[2020-07-26] MEDS: magnesium oxide 400 mg tablet PO ×2 (08:35→17:19)
[2020-07-26] MEDS: enoxaparin 40 mg/0.4 mL Syringe SUBCUT (08:35)
[2020-07-26] MEDS: aspirin 81 mg EC Tablet PO (08:35)
[2020-07-26 11:03] LABS: Glucose Point of Care 139 mg/dL (70-110)
--- NOTE | 2020-07-26 11:41 | NM_ITS ---
WS: [id number] NUCLEAR MEDICINE TAGGED WHITE BLOOD CELL STUDY INDICATION: Weakness TECHNIQUE: Nuclear medicine Ceretec tagged white blood cell study with 20.2 mCi technetium 99m FINDINGS: Normal white blood cell activity in the liver and spleen. Hepatomegaly. Normal bone marrow activity. No abnormal areas of white blood cell activity to indicate infection. Normal bladder activi ty. NM/NM WBC scan w SPECT 41231/31 IMPRESSION: Unremarkable white blood cell study.
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
[2020-07-26 13:29] LABS: ANA SCREEN, IFA NEGATIVE (NEGATIVE)
[2020-07-26] MEDS: cefTRIAXone 1,000 MG in sodium chloride 0.9% (plus) 50 ML 100 MG IV (13:50)
[2020-07-26] MEDS: ondansetron 4 MG Tablet PO ×2 (13:51→20:47)
[2020-07-26 14:28] LABS: CENTROMERE B ANTIBODY <1.0 NEG AI (<1.0 NEG); JO-1 ANTIBODY <1.0 NEG AI (<1.0 NEG); RNP ANTIBODY <1.0 NEG AI (<1.0 NEG); SCL-70 ANTIBODY <1.0 NEG AI (<1.0 NEG); SJOGREN'S ANTIBODY (SS-A) <1.0 NEG AI (<1.0 NEG); SM ANTIBODY <1.0 NEG AI (<1.0 NEG); SS-B <1.0 NEG AI (<1.0 NEG)
--- NOTE | 2020-07-26 15:25 | DCPLANNER ---
IMM completed on 07/26/20 @ 6203. Copy of rights given to pt.
[2020-07-26 16:49] LABS: Glucose Point of Care 240 mg/dL (70-110)
--- NOTE | 2020-07-26 19:05 | PC.NURSE ---
Received report from Swetha Aleman RN. Patient resting in bed with eyes closed. Easily aroused. Denies pain, reports feeling very comfortable. Patient requesting Ambien this evening. No distresses observed. Assessment completed as documented.
[2020-07-26 20:39] LABS: Glucose Point of Care 235 mg/dL (70-110)
[2020-07-26] MEDS: atorvastatin 40 mg Tablet 80 MG PO (20:47)
--- NOTE | 2020-07-26 23:33 | PC.NURSE ---
Addendum entered by Helena Freeman RN 07/27/20 01:06: Dr Mederos in to see patient at this time to address increase in temperature. Doctor has placed multiple orders. Original Note: Patient's current temperature is 101.3. Denies any discomforts. Informed Dr Mederos. No new orders received at this time.
[2020-07-27] VITALS (7 sets, daily range): BP systolic 101–142; BP diastolic 58–64; PULSE 67–96; RESP 18–20; TEMP 36.6–38.4; O2SAT 90–96
--- NOTE | 2020-07-27 00:48 | XR_ITS ---
WS: [id number] Exam: XR chest 1V portable [id number] Date/Time of Exam: 07/27/2020 12:48 AM Reason For Exam: fever Comparison 07/19/2020 Findings: The lungs are clear and fully expanded. Costophrenic angles are sharp. No infiltrates. Bronchovascula r relief appears normal. Cardiac silhouette is unremarkable. Bony elements are intact. XR/XR chest 1V portable [id number] IMPRESSION: Unremarkable chest radiograph.
[2020-07-27] MEDS: HYDROmorphone 1 mg/mL INJ 1 mL 0.5 MG IVP (01:31)
--- NOTE | 2020-07-27 01:32 | PC.PHAR ---
Pharmacokinetic dosing service Date: 07/27/2020 Time: 131 Objective: Patient: Fatuma Ching Floor: 112-2 Age: 64 yo Serum creatinine: 0.4 mg/dL Height: 64.0 Inches Weight (kg): 78.471 Diagnosis: Relevant medical/social history: Cultures and sensitivities: Other labs: Assessment: IBW (kg): 54.70 Dosing wt(kg): 78.471 Estimated Creatinine clearance (ml/min): 119.5 CRCL method: Cockcroft and Gault using ibw(default). Drug selected: Vancomycin Loading dose (mg): 0 Vd (liters): 70.6 (factor used: 0.9 L/kg) Peter (hr-1): 0.104 Half life (hrs): 6.66 Recommended dose: 1250 mg Interval: 8 hrs Infusion time (hrs): 1.5 Predicted peak (mcg/mL): 29.0 Predicted trough (mcg/mL): 14.75 Total body weight is being used for vancomycin dosing. Renal function is stable [ ] /unstable [ ] Recommendations: Give Vancomycin 1250 mg q 8 hrs with an expected Cpeak of 29.0 mcg/ml and an expected Ctrough of 14.75 mcg/ml Renal dosing of other antibiotics (review renal dosing of other medications and list guidelines here): Thank you for the consult, will continue to follow. Signature: Florence Masterson [facility]
[2020-07-27] MEDS: lidocaine 1% INJ 20 mL INJECTION (01:46)
--- NOTE | 2020-07-27 01:46 | PC.NURSE ---
Lidocaine used at bedside by Dr Mederos for lumbar puncture.
--- NOTE | 2020-07-27 02:07 | PM.ACPR ---
Acute Procedures Lumbar Puncture: Time out performed: Yes Patient position: left lateral decubitus Skin prep: Povidone-Iodine 1% Local anesthetic used: Lidocaine 1% Amount of anesthesia used (ml): 5 Interspace used: L4-L5 Opening pressure (cmH20): 19 Fluid initially obtained: clear Complications: none Additional comments: Patient became septic overnight spiked fever 101.3 she was tachypneic, noticed leukocytosis she met sepsis criteria, on clinical exam she was complaining of headache neck pain positive Kernig sign, decision was made to start her on vancomycin and ceftriaxone and obtain CSF dexamethasone was not given as she was getting ceftriaxone before antibiotics already, patient tolerated the procedure very well, No postprocedure complications Estimated blood loss 0 mL Two CSU nurses were present in the room Norberto
[2020-07-27] MEDS: acetaminophen 325 mg Tablet 650 MG PO ×2 (02:10→21:17)
[2020-07-27] MEDS: cefTRIAXone 2,000 MG in sodium chloride 0.9% (plus) 50 ML 100 MG IV (02:10)
--- NOTE | 2020-07-27 02:11 | P.EN_ITS ---
Event Note Event Note: I was notified regarding temperature 101.3 Patient was evaluated at bedside Patient was complaining of headache and neck pain, however the site did not seem infiltrated, no chest pain shortness of breath cough dysuria or diarrhea endorsed by the patient On clinical exam Awake alert oriented x3 GCS 15 Left-sided residual weakness from the stroke No sign of cellulitis of skin No IV line infiltration Positive Kernig's sign, neck pain and headache No temporal tenderness Nontender abdomen S1, S2 Lower extremity no edema gangrene or ulcer Review of records: Reviewed she has had high inflammatory markers recent WBC nuclear scan venous Doppler pulmonary for effusion did not reveal acute pathol ogical findings however echo did not show any vegetations Assessment and plan Sepsis, criteria met with fever, tachypnea and leukocytosis considering positive Kernig sign and headache and neck pain I would start her on vancomycin and ceftriaxone 2 g along with doxycycline empirically for my suspicion for meningitis Bedside lumbar puncture was done Her Lovenox dose was 9 AM in the morning it has been more than 12 hours, her platelet counts are normal CT head reviewed , Patient tolerated the procedure very well, her opening pressure was 19 mmhg Clear CSF color, estimated blood loss 0 Post procedure patient was asked to lay supine for at least 24 hours, I will give her Tylenol for headache preprocedure Dilaudid 0.5 mg was given
--- NOTE | 2020-07-27 02:20 | PC.NURSE ---
Consent for lumbar puncture signed and in chart. Dr Mederos performed spinal tap with 2 RN at bedside. Collections sent to lab. Patient tolerated procedure well. Patient c/o headache prior to procedure. No relief with Dilaudid administration. Received verbal order for Tylenol 650mg PO q6hr. RBVO Tylenol administered.
[2020-07-27 02:22] LABS: Basophils # 0.1 10^3/uL (0.0-0.1); Basophils % 0.5 %; Eosinophils # 0.1 10^3/uL (0.0-0.8); Hematocrit 35.2 % (37.0-47.0); Hemoglobin 11.6 g/dL (11.5-15.3); Lymphocytes # 1.7 10^3/uL (0.8-4.8); Mean Corpuscular Hemoglobin 27.7 pg (28.0-34.0); Mean Platelet Volume 9.3 fL (7.4-10.4); Monocytes # 1.8 10^3/uL (0.2-0.9); Monocytes % 15.2 %; Neutrophils # 7.67 10^3/uL (1.8-7.7); Neutrophils % 66.6 %; Nucleated Red Blood Cells % 0 %; Platelet Count 234 10^3/cmm (130-400); Red Blood Count 4.19 10^6/uL (4.1-5.3); White Blood Count 11.5 10^3/uL (4.0-10.0)
[2020-07-27 02:25] LABS: CSF Mononuclear # 0.001 10^3/uL (50-90); Mononuclear WBC CSF % 100 % (50-90); Polynuclear WBC CSF % 0 % (0-10); Red Blood Cell CSF 0 10^3/uL (0-0); White Blood Cell CSF 1 /uL (0-5)
[2020-07-27 02:27] LABS: Appearance CSF CLEAR (CLEAR); Color CSF COLORLESS (COLORLESS)
[2020-07-27 02:43] LABS: Glucose CSF 107 mg/dL (40-70); Total Protein CSF 34 mg/dL (15-45)
[2020-07-27] MEDS: vancomycin 1,250 MG/250 ML PIGGYBACK 250 MG IV ×2 (02:48→14:58)
[2020-07-27 02:49] LABS: Alanine Aminotransferase 14 U/L (0-33); Albumin Level 3.2 g/dL (3.5-5.2); Alkaline Phosphatase 93 IU/L (35-105); Anion Gap 12.6 (5-19); Aspartate Amino Transferase 14 U/L (0-32); Blood Urea Nitrogen 11 mg/dL (8-23); Calcium 9.7 mg/dL (8.5-10.5); Carbon Dioxide 30 mmol/L (22-29); Chloride 96 mmol/L (98-107); Globulin 3.2 g/dL (1.3-4.6); Glomerular Filtration Rate 123.4 mL/min (90-130); Glucose 145 mg/dL (65-115); Magnesium 1.6 mg/dL (1.7-2.3); Osmolality Calculated 282 mOsm/kg (285-295); Phosphorus 2.7 mg/dL (2.5-4.5); Potassium 3.6 mmol/L (3.5-5.1); Sodium 135 mmol/L (136-145); Total Bilirubin 0.5 mg/dL (0.15-1.2); Total Protein 6.4 g/dL (6.6-8.7)
[2020-07-27 02:50] LABS: C Reactive Protein 86.2 mg/L (0.0-4.9); Lactate Dehydrogenase 162 U/L (135-214)
[2020-07-27] MEDS: ondansetron 4 MG Tablet PO ×2 (06:07→23:02)
--- NOTE | 2020-07-27 06:33 | PC.NURSE ---
patient up to bathroom and grooming self. Patient heart rate has been 70s to 80s all night. Cardizem drip was paused earlier as documented. Patient current heart rate running 110s to 130s. Patient does report feeling palpitations in her chest but no other discomforts. Informed Dr Mederos and received direction to restart Cardizem gtt. Will restart at 10ml/hr.
[2020-07-27 06:51] LABS: Add Urine Microscopic? YES; Bilirubin Urine Neg (Negative); Blood Urine 3+ (Negative); Glucose Urine UA 1+ (Normal); Ketones Urine Negative (Negative); Leukocyte Esterase Urine Negative (Negative); Nitrate Urine Negative (Negative); Protein Urine Neg (Negative); Specific Gravity, Urine 1.005 (1.005-1.030); Urine Appearance SL Hazy (CLEAR); Urine Color Yellow (Yellow); Urobilinogen Urine Norm (Negative); pH Urine 5 (5-7)
[2020-07-27 06:52] LABS: RBC Urine 25-40 /hpf (0-2); WBC Urine 0-4 /hpf (0-5)
[2020-07-27 06:53] LABS: Add Urine Culture? No; Bacteria Urine TRACE /hpf; Mucus Urine TRACE /hpf
[2020-07-27 07:17] LABS: Glucose Point of Care 59 mg/dL (70-110)
--- NOTE | 2020-07-27 08:16 | CT_ITS ---
WS: [id number] CT LUMBAR SPINE TECHNIQUE: Noncontrast CT of the lumbar spine with coronal and sagittal reformatted images. CLINICAL INFORMATION: r/o diskitis COMPARISON: MRI February 2020 DLP: 1641.[address] scans at [facility] use at least one of these dose optimization techniques: automat ed exposure control; mA and/or kV adjustment per patient size (includes targeted exams where dose is matched to clinical indication); or iterative reconstruction. FINDINGS: Lumbar scoliosis. Burst type compression fracture L1 vertebral body with retropulsion of the posterio r superior cortex. This results in moderate central canal stenosis. This is unchanged since the prior MRI. Vacuum disc phenomenon L2-L3 and L4-5. No evidence of discitis or osteomyelitis. L1-L2: Normal. L2-L3: Disc osteophyte complex with endplate ridging. Narrowing of the subarticular recess with encroachment on the traversing right L3 nerve root. Foramen are patent. Mild facet arthropathy. L3-L4: Mild annular bulging with a tiny right pericentral protrusion. Impingement on the right subart icular recess and traversing L4 nerve root. Foramen are patent. Moderate facet arthropathy. L4-L5: Mild disc bulging with vacuum disc phenomenon. Osteophytic ridging. Narrowing of the left suba rticular recess. Moderate facet arthropathy. Foramen are patent. L5-S1: Left pericentral disc osteophyte protrusion impinges the traversing left S1 nerve root. Forame n are patent. Moderate facet arthropathy. Shotty para-aortic lymph nodes not pathologically enlarged. Sigmoid diverticulosis. CT/CT lumbar spine wo con* [id number] IMPRESSION: 1. No evidence of discitis or osteomyelitis. No paravertebral abscess. 2. No high-grade central canal stenosis. 3. Burst type impression fracture L1 vertebral body with moderate retropulsion posterior superior cortex. This results in moderate central canal stenosis unc hanged from the prior MRI.
--- NOTE | 2020-07-27 08:16 | CT_ITS ---
WS: [id number] CT THORACIC SPINE TECHNIQUE: Noncontrast CT of the thoracic spine with coronal and sagittal reformatted images. CLINICAL INFORMATION: r/o abscess, diskitis COMPARISON: None. DLP: 1783.[address] scans at [facility] use at least one of these dose optimization techniques: automat ed exposure control; mA and/or kV adjustment per patient size (includes targeted exams where dose is matched to clinical indication); or iterative reconstruction. FINDINGS: Mild thoracic curve convex right. Compression fracture L1 vertebral body will be discussed in the lum bar spine CT. No acute appearing thoracic spine compression fractures. Disc space heights and vertebr al body heights thoracic spine are well-maintained. No high-grade central canal stenosis. Moderate facet arthropathy in the lower thoracic spine. Mild central canal stenosis T10-11. Mild left T10-11 bony foraminal narrowing. No evidence of discitis or osteomyelitis. No evidence of paraverteb ral abscess. Trace bilateral pleural fluid. CT/CT thoracic spin wo con* [id number] IMPRESSION: 1. No evidence of discitis or osteomyelitis. 2. No high-grade central canal stenosis.
--- NOTE | 2020-07-27 08:16 | CT_ITS ---
WS: [id number] CT CERVICAL SPINE TECHNIQUE: Noncontrast CT of the cervical spine with coronal and sagittal reformatted images. CLINICAL INFORMATION: neck pain, r/o absess COMPARISON: None. DLP: 529.[address] scans at [facility] use at least one of these dose optimization techniques: automat ed exposure control; mA and/or kV adjustment per patient size (includes targeted exams where dose is matched to clinical indication); or iterative reconstruction. FINDINGS: Straightening of the normal cervical lordosis. Moderate spondylitic changes. Disc osteophyte complexe s worse at C5-C6. C2-C3: Normal. C3-C4: Disc osteophyte complex with endplate ridging. Severe right and mild left bony foraminal narro wing. C4-C5: Disc osteophyte complex with small central protrusion. Moderate right and mild left foraminal narrowing. Mild central canal stenosis. C5-C6: Disc osteophyte complex with endplate ridging. Mild central canal stenosis. Moderate right gre ater than left bony foraminal narrowing. C6-C7: Disc osteophyte complex with endplate ridging. Spinal canal and foramen are patent. C7-T1: No significant disc bulging. Spinal canal and foramen are patent. Partially visualized mastoid air cells well aerated. Normal visualized paravertebral soft tissues. No evidence of discitis or osteomyelitis. CT/CT cervical spin wo con* [id number] IMPRESSION: No evidence of discitis or osteomyelitis.
--- NOTE | 2020-07-27 08:16 | CT_ITS ---
WS: [id number] CT ABDOMEN PELVIS TECHNIQUE: Noncontrast CT of the abdomen and pelvis with coronal and sagittal reformatted images. CLINICAL INFORMATION: fevers? unknoen sorce COMPARISON: CT 4 4,019 DLP: 925.[address] scans at [facility] use at least one of these dose optimization techniques: automat ed exposure control; mA and/or kV adjustment per patient size (includes targeted exams where dose is matched to clinical indication); or iterative reconstruction. FINDINGS: Trace bilateral pleural effusions in the lung bases. Noncontrast liver is normal. Normal noncontrast spleen. Normal GE junction. Small esophageal hiatal hernia. Adrenal glands are normal. Fatty atrophy of the pancreas. Gallbladder is contracted. Normal caliber abdominal aorta. Aortic calcification. Adr enal glands are normal. No hydronephrosis. Lobulated left renal cysts. No periaortic or retroperitoneal lymphadenopathy. No inguinal lymphadenopathy. No pelvic lymphadenopa thy. Sigmoid diverticulosis. No evidence of acute diverticulitis. No evidence of high-grade small or large bowel obstruction. Small amount of air within the bladder likely due to recent Nava catheter or dallin dder intervention. Recommend clinical correlation. No significant bladder wall thickening. No free fl uid in the abdomen or pelvis. Burst fracture L1 vertebral body with moderate retropulsion appears sta ble since March 19, 2020. CT/CT abdomen pelvis wo con [id number] IMPRESSION: 1. Trace bilateral pleural fluid in the lung bases. 2. Sigmoid diverticulosis. No evidence of acute diverticulitis. 3. Tiny amount of air in the nondependent portion of the bladder likely due to recent Nava catheter removal or bladder instrumentation. Recommend clinical c orrelation for UTI. No bladder wall thickening. 4. No free fluid in the abdomen or pelvis. 5. Left renal cysts. 6. No hydronephrosis in either kidney. 7. L1 compression fracture with moderate retropulsion posterior superior oswald x appears unchanged since the MRI February 2020. Moderate central canal stenos is.
[2020-07-27 08:27] LABS: Glucose Point of Care 195 mg/dL (70-110)
--- NOTE | 2020-07-27 08:34 | PC.NURSE ---
Medications related Per Dr. Monroy in person orders to Hold today's dose of Lovenox and Plavix due to post spinal tap this morning at 2 am. Continue tomorrow. Can give Aspirin.
[2020-07-27] MEDS: escitalopram 10 mg Tablet 20 MG PO (09:15)
[2020-07-27] MEDS: doxycycline 100 mg Tablet PO ×2 (09:16→18:49)
[2020-07-27] MEDS: magnesium oxide 400 mg tablet PO ×2 (09:16→18:49)
[2020-07-27] MEDS: aspirin 81 mg EC Tablet PO (09:16)
[2020-07-27 10:37] LABS: Influenza A by IFA Negative (Negative); Influenza B by IFA Negative (Negative)
[2020-07-27] MEDS: TRAMadol 50 mg Tablet 25 MG PO ×2 (10:52→23:58)
[2020-07-27 11:30] LABS: Glucose Point of Care 159 mg/dL (70-110)
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
[2020-07-27 17:01] LABS: Glucose Point of Care 110 mg/dL (70-110)
[2020-07-27 20:39] LABS: Glucose Point of Care 229 mg/dL (70-110)
[2020-07-27] MEDS: atorvastatin 40 mg Tablet 80 MG PO (21:17)
--- NOTE | 2020-07-27 22:49 | PC.NURSE ---
PT IS RESTING IN BED. PT DENIES PAIN AT THIS TIME. PT IS TO BE TRANSFERRED TO [facility] ROOM 257. REPORT CALLED TO BERT.
--- NOTE | 2020-07-27 23:21 | PC.NURSE ---
PT HAD A TEMP OF 101.2. PRN TYLENOL WAS GIVEN. TEMP PRIOR TO TRANSFER WAS 99.0.
[2020-07-28] VITALS (10 sets, daily range): BP systolic 94–146; BP diastolic 60–82; PULSE 70–75; RESP 12–20; TEMP 36.6–37.9; O2SAT 90–97
[2020-07-28] MEDS: vancomycin 1,250 MG/250 ML PIGGYBACK 250 MG IV ×2 (01:24→14:15)
[2020-07-28] MEDS: cefTRIAXone 2,000 MG in sodium chloride 0.9% (plus) 50 ML 100 MG IV (02:29)
--- NOTE | 2020-07-28 04:35 | PC.NURSE ---
2L NC Oxygen Contacted physician for RT assess/treat. Pt oxygen dropped to 89 on admit to [place] floor. 0425 Oxygen dropped to 84, added 2L NC. Awaiting RT eval. Pt continues to desat.
[2020-07-28 05:51] LABS: Basophils # 0.1 10^3/uL (0.0-0.1); Basophils % 0.5 %; Eosinophils # 0.1 10^3/uL (0.0-0.8); Eosinophils % 0.6 %; Hematocrit 36.4 % (37.0-47.0); Hemoglobin 11.8 g/dL (11.5-15.3); Lymphocytes # 1.9 10^3/uL (0.8-4.8); Lymphocytes % 11.2 %; Mean Corpuscular HGB Conc 32.4 g/dL (30.0-36.0); Mean Corpuscular Hemoglobin 27.6 pg (28.0-34.0); Mean Corpuscular Volume 85.2 fL (81-99); Mean Platelet Volume 9.2 fL (7.4-10.4); Monocytes % 11.9 %; Neutrophils # 12.67 10^3/uL (1.8-7.7); Neutrophils % 74.8 %; Nucleated Red Blood Cells % 0 %; Platelet Count 257 10^3/cmm (130-400); Red Blood Count 4.27 10^6/uL (4.1-5.3); Red Cell Distribution Width 13.2 % (12.1-15.1)
[2020-07-28] MEDS: ondansetron 4 MG Tablet PO (06:25)
[2020-07-28 06:30] LABS: Procalcitonin 1.07 ng/mL (0-0.5)
[2020-07-28 06:41] LABS: Alanine Aminotransferase 13 U/L (0-33); Albumin Level 2.9 g/dL (3.5-5.2); Alkaline Phosphatase 73 IU/L (35-105); Anion Gap 13.3 (5-19); Aspartate Amino Transferase 12 U/L (0-32); Blood Urea Nitrogen 10 mg/dL (8-23); Calcium 9.3 mg/dL (8.5-10.5); Carbon Dioxide 29 mmol/L (22-29); Chloride 96 mmol/L (98-107); Globulin 3.6 g/dL (1.3-4.6); Glomerular Filtration Rate 123.4 mL/min (90-130); Glucose 66 mg/dL (65-115); Magnesium 1.7 mg/dL (1.7-2.3); Osmolality Calculated 277 mOsm/kg (285-295); Phosphorus 2.9 mg/dL (2.5-4.5); Potassium 3.3 mmol/L (3.5-5.1); Sodium 135 mmol/L (136-145); Total Bilirubin 0.3 mg/dL (0.15-1.2); Total Protein 6.5 g/dL (6.6-8.7)
[2020-07-28 06:51] LABS: Glucose Point of Care 67 mg/dL (70-110)
[2020-07-28] MEDS: enoxaparin 40 mg/0.4 mL Syringe SUBCUT (08:38)
[2020-07-28] MEDS: magnesium oxide 400 mg tablet PO ×2 (08:38→17:26)
[2020-07-28] MEDS: doxycycline 100 mg Tablet PO ×2 (08:38→17:26)
[2020-07-28] MEDS: escitalopram 10 mg Tablet 20 MG PO (08:38)
[2020-07-28] MEDS: clopidogrel 75 mg Tablet PO (08:38)
[2020-07-28] MEDS: aspirin 81 mg EC Tablet PO (08:38)
[2020-07-28] MEDS: TRAMadol 50 mg Tablet 25 MG PO ×2 (08:52→15:45)
--- NOTE | 2020-07-28 09:00 | PC.SOCIAL ---
IMM Updated Updated pt via phone, on Pg 2 IMM. No questions voiced. Provided pt PHARMACY DATA ANALYST a copy to give to pt. Signed, dated, & timed copy in chart.
[2020-07-28] MEDS: HYDROcodone-acetaminophen 5-325 mg Tablet 1 TAB PO ×2 (09:59→17:26)
[2020-07-28 11:28] LABS: Glucose Point of Care 198 mg/dL (70-110)
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
[2020-07-28] MEDS: potassium chloride ER 20 mEq Tablet 40 MEQ PO (12:06)
[2020-07-28] MEDS: ondansetron 2 mg/ML SDV 2 mL 4 MG IVP (13:51)
[2020-07-28 14:14] LABS: Vancomycin Trough 11.1 ug/mL (10-15)
[2020-07-28 14:34] LABS: Coronavirus Test Green County Not Detected
[2020-07-28] MEDS: acetaminophen 325 mg Tablet 650 MG PO (15:44)
[2020-07-28 17:00] LABS: Glucose Point of Care 146 mg/dL (70-110)
[2020-07-28] MEDS: atorvastatin 40 mg Tablet 80 MG PO (20:04)
[2020-07-28 21:04] LABS: Glucose Point of Care 246 mg/dL (70-110)
[2020-07-29] VITALS (7 sets, daily range): BP systolic 106–136; BP diastolic 63–82; PULSE 68–85; RESP 15–20; TEMP 36.2–38.1; O2SAT 87–95
[2020-07-29] MEDS: vancomycin 1,250 MG/250 ML PIGGYBACK 250 MG IV ×2 (02:26→13:19)
[2020-07-29] MEDS: cefTRIAXone 2,000 MG in sodium chloride 0.9% (plus) 50 ML 100 MG IV (03:57)
[2020-07-29 04:41] LABS: Basophils # 0.1 10^3/uL (0.0-0.1); Basophils % 0.4 %; Eosinophils # 0.1 10^3/uL (0.0-0.8); Eosinophils % 0.8 %; Hemoglobin 11.2 g/dL (11.5-15.3); Lymphocytes # 1.4 10^3/uL (0.8-4.8); Lymphocytes % 9.7 %; Mean Corpuscular Hemoglobin 27.6 pg (28.0-34.0); Mean Corpuscular Volume 86.2 fL (81-99); Monocytes # 1.2 10^3/uL (0.2-0.9); Monocytes % 8.1 %; Neutrophils # 11.55 10^3/uL (1.8-7.7); Neutrophils % 80.4 %; Nucleated Red Blood Cells % 0 %; Platelet Count 232 10^3/cmm (130-400); Red Blood Count 4.06 10^6/uL (4.1-5.3); Red Cell Distribution Width 13.2 % (12.1-15.1); White Blood Count 14.4 10^3/uL (4.0-10.0)
[2020-07-29 05:27] LABS: Procalcitonin 0.94 ng/mL (0-0.5)
[2020-07-29 05:38] LABS: Alanine Aminotransferase 12 U/L (0-33); Albumin Level 2.8 g/dL (3.5-5.2); Alkaline Phosphatase 80 IU/L (35-105); Anion Gap 14.4 (5-19); Aspartate Amino Transferase 11 U/L (0-32); Blood Urea Nitrogen 12 mg/dL (8-23); C Reactive Protein 128.4 mg/L (0.0-4.9); Calcium 8.9 mg/dL (8.5-10.5); Carbon Dioxide 27 mmol/L (22-29); Chloride 98 mmol/L (98-107); Globulin 3.2 g/dL (1.3-4.6); Glomerular Filtration Rate 159.7 mL/min (90-130); Glucose 125 mg/dL (65-115); Magnesium 1.6 mg/dL (1.7-2.3); Osmolality Calculated 281 mOsm/kg (285-295); Phosphorus 2.5 mg/dL (2.5-4.5); Potassium 4.4 mmol/L (3.5-5.1); Sodium 135 mmol/L (136-145); Total Bilirubin 0.3 mg/dL (0.15-1.2)
--- NOTE | 2020-07-29 06:55 | PC.NURSE ---
Patient incontient of bladder with brief soaked with copious amounts of urine along with bed sheets.
[2020-07-29 07:48] LABS: Glucose Point of Care 76 mg/dL (70-110)
[2020-07-29] MEDS: HYDROcodone-acetaminophen 5-325 mg Tablet 1 TAB PO (09:05)
[2020-07-29] MEDS: magnesium oxide 400 mg tablet PO ×2 (09:05→17:25)
[2020-07-29] MEDS: doxycycline 100 mg Tablet PO ×2 (09:05→17:25)
[2020-07-29] MEDS: enoxaparin 40 mg/0.4 mL Syringe SUBCUT (09:06)
[2020-07-29] MEDS: escitalopram 10 mg Tablet 20 MG PO (09:06)
[2020-07-29] MEDS: clopidogrel 75 mg Tablet PO (09:06)
[2020-07-29] MEDS: aspirin 81 mg EC Tablet PO (09:06)
[2020-07-29 09:11] LABS: Glucose Point of Care 63 mg/dL (70-110)
[2020-07-29 10:11] LABS: Hepatitis A Antibody IgM Non-Reactive (Nonreactive); Hepatitis B Core IgM Non-Reactive (Nonreactive); Hepatitis B Surface Antigen Non-Reactive (Nonreactive); Hepatitis C Virus Antibody Non-Reactive (Nonreactive)
[2020-07-29 10:17] LABS: HIV 1 & 2 Antibody Non-Reactive (Non-Reactiv); HIV 1 & 2 Antigen Non-Reactive (Non-Reactiv)
[2020-07-29 10:50] LABS: Glucose Point of Care 153 mg/dL (70-110)
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
[2020-07-29] MEDS: TRAMadol 50 mg Tablet 25 MG PO ×2 (13:25→23:27)
--- NOTE | 2020-07-29 15:42 | PC.CHAP ---
Pastoral Care Encounter/Spiritual Assessment Type of Contact [] Declined enterprise systems architect visit [] Patient/Family/Request visit [] Outpatient visit [] Follow-up visit [] Physician referral [] Code/Alert [XX] Routine visit [] Staff referral [] Actively dying [XX] Patient sleeping [] Family support [] [] Out of room [] Palliative care [] [] Receiving care in room [] Pre-surgical visit [] Trauma [] Long length of stay [] ICU visit [] Other: Relational/Emotional Strength [] Patient feels connected with others/family/visitors/staff [] Distress [] Loneliness/isolation [] Abandonment Spirituality of Patient [] Person of Viri [] Attends Taoist of their Viri [] Believes in Prayer [] Reads Bible or Zoroastrian materials [] There are Spiritual issues to be addressed Manager Regulatory Interventions [] Prayer [] Active listening [] Non-anxious presence [] Spiritual/emotional support [] Crisis/trauma care [] Spiritual counseling [] Bereavement support [] Provided bereavement packet [] Provided Bible/devotional materials [] Provided toy/stuffed animal, coloring book to patient or family member [] Provided Communion [] Anointing/[place] [] Salvation [] Completed spiritual assessment [] Other: Impact on Illness or Injury [] Angry [] Fearful [] Anxious [] Often cries [] Exhaustion [] Unable to work [] Unable to attend hinduism [] Unable to walk/stand [] Unable to read [] Unable to drive [] Unable to eat/drink [] Unable to sleep [] Unable to be with family [] Patient intubated [] Other: Summary Time spent with patient
[2020-07-29 17:26] LABS: Glucose Point of Care 79 mg/dL (70-110)
[2020-07-29 20:12] LABS: Glucose Point of Care 207 mg/dL (70-110)
[2020-07-29] MEDS: atorvastatin 40 mg Tablet 80 MG PO (21:41)
[2020-07-30] VITALS (7 sets, daily range): BP systolic 111–150; BP diastolic 58–76; PULSE 73–77; RESP 18–20; TEMP 36.6–37.4; O2SAT 85–96
[2020-07-30 00:52] LABS: DNA AB (DS) CRITHIDIA,IFA NEGATIVE (NEGATIVE)
[2020-07-30] MEDS: vancomycin 1,250 MG/250 ML PIGGYBACK 250 MG IV (01:59)
[2020-07-30] MEDS: cefTRIAXone 2,000 MG in sodium chloride 0.9% (plus) 50 ML 100 MG IV (03:43)
[2020-07-30 04:43] LABS: Basophils # 0.1 10^3/uL (0.0-0.1); Basophils % 0.4 %; Eosinophils # 0.1 10^3/uL (0.0-0.8); Eosinophils % 0.8 %; Hematocrit 33.5 % (37.0-47.0); Hemoglobin 10.7 g/dL (11.5-15.3); Lymphocytes # 1.7 10^3/uL (0.8-4.8); Lymphocytes % 14.7 %; Mean Corpuscular HGB Conc 31.9 g/dL (30.0-36.0); Mean Corpuscular Volume 84.6 fL (81-99); Mean Platelet Volume 9.2 fL (7.4-10.4); Monocytes # 1.2 10^3/uL (0.2-0.9); Monocytes % 9.9 %; Neutrophils # 8.66 10^3/uL (1.8-7.7); Neutrophils % 73.7 %; Nucleated Red Blood Cells % 0 %; Platelet Count 244 10^3/cmm (130-400); Red Blood Count 3.96 10^6/uL (4.1-5.3); Red Cell Distribution Width 12.9 % (12.1-15.1); White Blood Count 11.8 10^3/uL (4.0-10.0)
[2020-07-30 05:13] LABS: Procalcitonin 0.78 ng/mL (0-0.5)
[2020-07-30 05:25] LABS: Alanine Aminotransferase 10 U/L (0-33); Albumin Level 2.9 g/dL (3.5-5.2); Alkaline Phosphatase 116 IU/L (35-105); Anion Gap 12.9 (5-19); Aspartate Amino Transferase 10 U/L (0-32); Blood Urea Nitrogen 10 mg/dL (8-23); C Reactive Protein 117.1 mg/L (0.0-4.9); Carbon Dioxide 28 mmol/L (22-29); Chloride 98 mmol/L (98-107); Globulin 3.2 g/dL (1.3-4.6); Glomerular Filtration Rate 222.6 mL/min (90-130); Glucose 71 mg/dL (65-115); Magnesium 1.6 mg/dL (1.7-2.3); Osmolality Calculated 278 mOsm/kg (285-295); Phosphorus 2.6 mg/dL (2.5-4.5); Potassium 3.9 mmol/L (3.5-5.1); Sodium 135 mmol/L (136-145); Total Bilirubin 0.2 mg/dL (0.15-1.2); Total Protein 6.1 g/dL (6.6-8.7)
[2020-07-30 06:52] LABS: Glucose Point of Care 62 mg/dL (70-110)
[2020-07-30 06:53] LABS: Glucose Point of Care 121 mg/dL (70-110)
[2020-07-30 07:54] LABS: Glucose Point of Care 132 mg/dL (70-110)
[2020-07-30] MEDS: ondansetron 2 mg/ML SDV 2 mL 4 MG IVP (08:45)
[2020-07-30] MEDS: magnesium oxide 400 mg tablet PO ×2 (09:22→17:03)
[2020-07-30] MEDS: doxycycline 100 mg Tablet PO ×2 (09:22→17:03)
[2020-07-30] MEDS: escitalopram 10 mg Tablet 20 MG PO (09:23)
[2020-07-30] MEDS: aspirin 81 mg EC Tablet PO (09:23)
[2020-07-30] MEDS: clopidogrel 75 mg Tablet PO (09:23)
[2020-07-30] MEDS: enoxaparin 40 mg/0.4 mL Syringe SUBCUT (09:24)
--- NOTE | 2020-07-30 09:53 | PC.CHAP ---
Pastoral Care Encounter/Spiritual Assessment Type of Contact [] Declined sourcing manager visit [] Patient/Family/Request visit [] Outpatient visit [] Follow-up visit [] Physician referral [] Code/Alert [] Routine visit [] Staff referral [] Actively dying [] Patient sleeping [] Family support [] [] Out of room [] Palliative care [] [] Receiving care in room [] Pre-surgical visit [] Trauma [] Long length of stay [] ICU visit [] Other: Relational/Emotional Strength [] Patient feels connected with others/family/visitors/staff [] Distress [] Loneliness/isolation [] Abandonment Spirituality of Patient [] Person of Viri [] Attends Restorationism of their Viri [] Believes in Prayer [] Reads Bible or Baptist materials [] There are Spiritual issues to be addressed 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 [] Prayer [] Active listening [] Non-anxious presence [] Spiritual/emotional support [] Crisis/trauma care [] Spiritual counseling [] Bereavement support [] Provided bereavement packet [] Provided Bible/devotional materials [] Provided toy/stuffed animal, coloring book to patient or family member [] Provided Communion [] Anointing/[place] [] Salvation [] Completed spiritual assessment [] Other: Impact on Illness or Injury [] Angry [] Fearful [] Anxious [] Often cries [] Exhaustion [] Unable to work [] Unable to attend anglican [] Unable to walk/stand [] Unable to read [] Unable to drive [] Unable to eat/drink [] Unable to sleep [] Unable to be with family [] Patient intubated [] Other: Summary Time spent with patient 10 min
[2020-07-30 10:50] LABS: Glucose Point of Care 149 mg/dL (70-110)
--- NOTE | 2020-07-30 12:00 | PC.SOCIAL ---
*IMM UPDATE* Gave IMM update to pt. Provided copy of page 2 @ 9:57am Initialed, timed, dated and placed in chart.
[2020-07-30] MEDS: polyethylene glycol 3350 Pkt 17 gm PO (12:19)
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
[2020-07-30 17:15] LABS: Glucose Point of Care 164 mg/dL (70-110)
[2020-07-30] MEDS: FUROsemide 10 mg/mL SDV 2mL 20 MG IVP (17:38)
[2020-07-30 20:58] LABS: Glucose Point of Care 156 mg/dL (70-110)
[2020-07-30] MEDS: atorvastatin 40 mg Tablet 80 MG PO (21:34)
[2020-07-31] VITALS: BP 126/72; PULSE 68; RESP 18; TEMP 36.6; O2SAT 91
[2020-07-31 03:59] VITALS: BP 131/78; PULSE 84; RESP 18; O2SAT 90
[2020-07-31 05:09] LABS: Basophils % 0.3 %; Eosinophils # 0.1 10^3/uL (0.0-0.8); Eosinophils % 0.5 %; Hemoglobin 11.2 g/dL (11.5-15.3); Lymphocytes # 1.2 10^3/uL (0.8-4.8); Lymphocytes % 10.3 %; Mean Corpuscular HGB Conc 32.9 g/dL (30.0-36.0); Mean Corpuscular Hemoglobin 27.5 pg (28.0-34.0); Mean Corpuscular Volume 83.3 fL (81-99); Monocytes # 1.2 10^3/uL (0.2-0.9); Monocytes % 9.6 %; Neutrophils # 9.48 10^3/uL (1.8-7.7); Neutrophils % 78.8 %; Nucleated Red Blood Cells % 0 %; Platelet Count 296 10^3/cmm (130-400); Red Blood Count 4.08 10^6/uL (4.1-5.3); Red Cell Distribution Width 12.8 % (12.1-15.1)
[2020-07-31 05:49] LABS: Magnesium 1.7 mg/dL (1.7-2.3); Phosphorus 3.4 mg/dL (2.5-4.5)
[2020-07-31 05:50] LABS: Alanine Aminotransferase 9 U/L (0-33); Albumin Level 3.2 g/dL (3.5-5.2); Alkaline Phosphatase 83 IU/L (35-105); Anion Gap 12.9 (5-19); Aspartate Amino Transferase 11 U/L (0-32); Blood Urea Nitrogen 11 mg/dL (8-23); Calcium 9.4 mg/dL (8.5-10.5); Carbon Dioxide 29 mmol/L (22-29); Chloride 96 mmol/L (98-107); Globulin 3.4 g/dL (1.3-4.6); Glomerular Filtration Rate 222.6 mL/min (90-130); Glucose 110 mg/dL (65-115); Osmolality Calculated 278 mOsm/kg (285-295); Potassium 3.9 mmol/L (3.5-5.1); Sodium 134 mmol/L (136-145); Total Bilirubin 0.5 mg/dL (0.15-1.2); Total Protein 6.6 g/dL (6.6-8.7)
[2020-07-31 06:38] LABS: Glucose Point of Care 95 mg/dL (70-110)
[2020-07-31 07:46] VITALS: BP 143/81; PULSE 73; RESP 17; TEMP 36.9; O2SAT 93
[2020-07-31] MEDS: doxycycline 100 mg Tablet PO (08:26)
[2020-07-31] MEDS: polyethylene glycol 3350 Pkt 17 gm PO (08:26)
[2020-07-31] MEDS: magnesium oxide 400 mg tablet PO (08:26)
[2020-07-31] MEDS: clopidogrel 75 mg Tablet PO (08:26)
[2020-07-31] MEDS: escitalopram 10 mg Tablet 20 MG PO (08:26)
[2020-07-31] MEDS: aspirin 81 mg EC Tablet PO (08:26)
[2020-07-31] MEDS: enoxaparin 40 mg/0.4 mL Syringe SUBCUT (08:28)
--- NOTE | 2020-07-31 09:16 | PC.NURSE ---
AM NOTE POLICE CURRENTLY ON FLOOR TO RETRIEVE REPORT
[2020-07-31 11:25] VITALS: BP 144/80; PULSE 69; RESP 16; TEMP 36.8; O2SAT 93
[2020-07-31 11:59] LABS: Glucose Point of Care 130 mg/dL (70-110)
--- NOTE | 2020-07-31 12:13 | PC.NURSE ---
DISCHARGE INSTRUCTIONS DISCHARGE INSTRUCTIONS REVIEWED PER THIS NURSE WITH PATIENT - SAD[facility] PENA ON FLOOR TO TAKE CARE OF DISCHARGE MEDICATION - PT TAKEN VIA W/C - VIA [facility] TO PRIVATE CAR WITH [facility] AT [facility] -
[2020-07-31 12:14] VITALS: BP 144/80; PULSE 69; RESP 16; TEMP 36.8; O2SAT 93
[2020-07-31 22:14] LABS: Lyme Disease AB (IGG),IBL NO BANDS DETECTED; Lyme Disease AB (IGM), IBL NO BANDS DETECTED
== END 2020-07-31 12:15 | disposition home or self-care (01) | DRG 637 ==
LOC: ER 18:11 → ICU 21:12 → CSU 07-23 23:07 → MEDSURG 07-27 23:28
PROVIDERS: Family Medicine; Internal Medicine; Admitting Provider Internal Medicine; Emergency Provider Family Medicine; PCP Family Medicine; Visit Provider Internal Medicine
DX: E11.10 Type 2 diabetes mellitus with ketoacidosis without coma (principal); A41.9 Sepsis, unspecified organism; I63.231 Cerebral infarction due to unspecified occlusion or stenosis of right carotid arteries; I69.954 Hemiplegia and hemiparesis following unspecified cerebrovascular disease affecting left non-dominant side; S32.01 Fracture of first lumbar vertebra; N39.0 Urinary tract infection, site not specified; Z91.120 Patient's intentional underdosing of medication regimen due to financial hardship; R29.704 NIHSS score 4; I65.22 Occlusion and stenosis of left carotid artery; I65.03 Occlusion and stenosis of bilateral vertebral arteries; X58.XXXD Exposure to other specified factors, subsequent encounter; M54.16 Radiculopathy, lumbar region; E11.51 Type 2 diabetes mellitus with diabetic peripheral angiopathy without gangrene; F32.9 Major depressive disorder, single episode, unspecified; F43.22 Adjustment disorder with anxiety; I07.1 Rheumatic tricuspid insufficiency; I25.10 Atherosclerotic heart disease of native coronary artery without angina pectoris; R51.9 Headache, unspecified; M54.2 Cervicalgia; Z79.02 Long term (current) use of antithrombotics/antiplatelets; Z79.82 Long term (current) use of aspirin; Z79.891 Long term (current) use of opiate analgesic
CPT/HCPCS: 12345; 36415; 36416; 36600; 70450; 70496; 70498; 70553; 71045; 71275; 72125; 72128; 72131; 74176; 78014; 78804; 78831; 80048; 80051; 80053; 80061; 80069; 80074; 80202; 80306; 80500; 81001; 82009; 82330; 82550; 82805; 82945; 82962; 83036; 83605; 83615; 83690; 83735; 83880; 84100; 84145; 84157; 84443; 84478; 84484; 85025; 85378; 85610; 85651; 85730; 86140; 86403; 86617; 87040; 87070; 87075; 87086; 87205; 87449; 87635; 87804; 87806; 89050; 93005; 93306; 93312; 93320; 93325; 93970; 94664; 96372; 97116; 97161; 97530; 99283; A9540; A9567; A9569; A9579; J0696; J1170; J1650; J1815; J1940; J2405; J3370; J3475; J7030; J7050; Q0162; Q9967

== ENCOUNTER → 2020-08-06 11:45 | Outpatient (BNVA) | payer MEDICARE, MEDICAID, SELFPAY | PROVIDERS: PCP Family Medicine; Visit Provider Family Medicine | DX: E11.65 Type 2 diabetes mellitus with hyperglycemia (principal); Z79.4 Long term (current) use of insulin; Z09 Encounter for follow-up examination after completed treatment for conditions other than malignant neoplasm; M51.16 Intervertebral disc disorders with radiculopathy, lumbar region | CPT/HCPCS: 36416; 82962 ==

== ENCOUNTER → 2020-09-05 09:52 | Outpatient (BNVA) | payer MEDICARE, MEDICAID, SELFPAY | PROVIDERS: PCP Internal Medicine; Visit Provider Anesthesiology Pain Medicine | DX: M51.16 Intervertebral disc disorders with radiculopathy, lumbar region (principal); M54.9 Dorsalgia, unspecified; S32.001K Stable burst fracture of unspecified lumbar vertebra, subsequent encounter for fracture with nonunion; X58.XXXD Exposure to other specified factors, subsequent encounter; Z79.891 Long term (current) use of opiate analgesic | CPT/HCPCS: 99214 ==

== ENCOUNTER → 2020-10-03 10:37 | Outpatient (BNVA) | payer MEDICARE, MEDICAID, SELFPAY | PROVIDERS: PCP Internal Medicine; Visit Provider Anesthesiology Pain Medicine | DX: M51.16 Intervertebral disc disorders with radiculopathy, lumbar region (principal); M54.9 Dorsalgia, unspecified; S32.001K Stable burst fracture of unspecified lumbar vertebra, subsequent encounter for fracture with nonunion; X58.XXXD Exposure to other specified factors, subsequent encounter; Z79.891 Long term (current) use of opiate analgesic | CPT/HCPCS: 99214 ==

== ENCOUNTER → 2020-10-31 10:07 | Outpatient (BNVA) | payer MEDICARE, MEDICAID, SELFPAY | PROVIDERS: PCP Internal Medicine; Visit Provider Anesthesiology Pain Medicine | DX: S32.001K Stable burst fracture of unspecified lumbar vertebra, subsequent encounter for fracture with nonunion (principal); M79.18 Myalgia, other site; M54.9 Dorsalgia, unspecified; M51.16 Intervertebral disc disorders with radiculopathy, lumbar region; X58.XXXD Exposure to other specified factors, subsequent encounter; Z79.891 Long term (current) use of opiate analgesic | CPT/HCPCS: 20553; 99214 ==

== ENCOUNTER → 2020-11-28 10:39 | Outpatient (BNVA) | payer MEDICARE, MEDICAID, SELFPAY | PROVIDERS: PCP Internal Medicine; Visit Provider Anesthesiology Pain Medicine | DX: G89.29 Other chronic pain (principal); M51.16 Intervertebral disc disorders with radiculopathy, lumbar region; M54.9 Dorsalgia, unspecified; M79.18 Myalgia, other site; S32.001K Stable burst fracture of unspecified lumbar vertebra, subsequent encounter for fracture with nonunion; X58.XXXD Exposure to other specified factors, subsequent encounter; Z79.891 Long term (current) use of opiate analgesic | CPT/HCPCS: 20553; 99214; J1030; J3490 ==

== ENCOUNTER 2020-12-03 16:21 | Emergency (ER) | payer MEDICARE, MEDICAID, SELFPAY ==
[2020-12-03 16:24] VITALS: BP 140/84; PULSE 69; RESP 18; O2SAT 96; BMI 34.3
[2020-12-03 16:33] VITALS: BP 137/82; PULSE 69; RESP 18; O2SAT 96
--- NOTE | 2020-12-03 16:33 | USR_ITS ---
PROCEDURE INFORMATION: Exam: US Abdomen, Limited; Right Upper Quadrant Exam date and time: 12/03/2020 4:39 PM Age: 65 years old Clinical indication: Abdominal pain; Acute; Additional info: Gallbladder pain ruq TECHNIQUE: Imaging protocol: US abdomen. Real time ultrasound with image documentation. Limited exam focused on the right upper quadrant. COMPARISON: CT abdomen pelvis wo con [id number] 07/27/2020 4:00 PM FINDINGS: Liver: Normal. No masses. Gallbladder: Normal. No gallstones. There is no gallbladder wall thickening. Common bile duct: Normal. No stones. No dilation. Pancreas: Visualized pancreas is unremarkable. Right kidney: Normal. No mass. No hydronephrosis. US/US abdomen limited [id number] IMPRESSION: No acute findings.
--- NOTE | 2020-12-03 16:35 | W.ED.ABDPA2 ---
HPI - Abdominal Pain General: Chief Complaint: Abdominal Pain Stated Complaint: ABD PAIN Time Seen by Provider: 12/03/20 16:28 History of Present Illness: HPI narrative: This patient is a 65-year-old female presents to the emerged from her local assisted living facility with complaint of right upper quadrant pain has been increasing in severity for the past week. Patient is not related to food. Patient states significantly tender to touch her pressing. Patient states she just very uncomfortable. Patient denies fever nausea vomiting. Will do medical evaluation treat as needed MD elicited complaint: abdominal pain Onset (ago): week(s) Pain Consistency: constant Location: RUQ Severity: severe Pain scale (0-10): 10 Quality: aching and sharp Radiation: none Migration to: no migration Exacerbating factors: nothing Relieving factors: nothing Associated Symptoms: Denies chills, dysuria, fever(s), nausea and vomiting Review of Systems General: Reports: 10 or more systems reviewed and unremarkable except in HPI and below Const: Denies: fever(s), chills, body aches or fatigue Eyes: Denies: change in vision or blurry vision ENMT: Denies: throat pain, hoarseness or mouth pain Card: Denies: chest pain, palpitations, irregular heart rhythm, edema, swelling of feet/ankles or lightheadedness Resp: Denies: dyspnea, productive cough, non-productive cough, wheezing or pain on inspiration GI: Reports: abdominal pain; Denies: nausea or vomiting : Denies: flank pain, difficulty voiding, dysuria, urinary frequency, urinary urgency or urinary hesitancy Musc: Denies: neck pain, back pain, extremity pain, extremity swelling, joint pain, joint swelling, joint redness, joint warmth or limited range of motion Skin/Breast: Denies: rash, pruritus, erythema or skin tenderness Neuro: Denies: headache(s), numbness in extremities or weakness in extremities Psych: Denies: anxiety or depression PFSH ED PFSH: Medical History 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 Degenerative disc disease Lumbar disc disease with radiculopathy Type 2 diabetes mellitus Surgical History No pertinent past surgical history Family History Other CAD (coronary artery disease) Diabetes Social History Smoking and tobacco status: never smoked Second hand smoke exposure: No Alcohol intake: never Caregiver/support person: Yes Lives independently: Yes Household members: caregiver Housing: House History of recent travel: No Physical Exam Const: COMMON NORMALS: no acute distress, average body habitus, patient oriented x3, no limitations, healthy appearing, alert and well nourished HENMT: COMMON NORMALS: normocephalic, atraumatic, hearing grossly normal bilaterally, external ears normal, EAC's normal, TM's normal bilaterally, Normal external nose present, Normal nasal mucous membranes and turbinates present, moist oral mucous membranes, oropharynx normal, dentition normal and gingiva normal HEAD & SCALP: normocephalic and atraumatic NOSE: Normal external nose present and Normal nasal mucous membranes and turbinates present EXTERNAL EAR: Yes external ears normal EXTERNAL AUDITORY CANAL: EAC's normal TYMPANIC MEMBRANE: TM's normal bilaterally Neck/C-Spine: COMMON NORMALS: full ROM, no lymphadenopathy, supple, no meningeal signs, no JVD, Thyroid normal and No carotid bruits THYROID: Thyroid normal Chest: COMMONS NORMALS: normal inspection of the chest, normal palpation of entire chest wall, normal inspection of the breasts and normal palpation of the breasts Breast/axilla inspection: Yes normal inspection of the breasts BREAST/AXILLA PALPATION: Yes normal palpation of the breasts Resp: COMMON NORMALS: normal respiratory effort, No retractions, No use of accessory muscles, clear to auscultation bilaterally and percussion normal AUSCULTATION: clear to auscultation bilaterally PERCUSSION: percussion normal Cardio: COMMON NORMALS: no JVD, regular rate, regular rhythm, S1 normal heart sound present, S2 normal heart sound present, No gallops present (Cardio), No clicks present (Cardio), No murmurs present (Cardio), No rub (Cardio) and Peripheral pulses 2+ throughout RATE: regular rate RHYTHM: regular rhythm HEART SOUNDS: S1 normal heart sound present and S2 normal heart sound present PERIPHERAL PULSES: Peripheral pulses 2+ throughout GI: COMMON NORMALS: Normal to inspection, nondistended, normoactive bowel sounds present, Soft to palpation, non-tender, No hepatosplenomegaly present, no masses and no bruits PALPATION: Yes Soft to palpation and Yes No hepatosplenomegaly present : COMMON NORMALS: Yes no CVA tenderness BLADDER/KIDNEY EXAM: Yes no CVA tenderness Back/Pelvis: COMMON NORMALS: no CVA tenderness, thoracic and lumbar spine normal to inspection, no thoracic nor lumbar tenderness, thoraco-lumbar ROM normal and straight leg raise negative bilaterally Extremity: COMMON NORMALS: normal to inspection, full ROM, capillary refill normal, no joint enlargement, no clubbing, cyanosis or edema, no calf tenderness and no pedal edema Neuro: COMMON NORMALS: patient oriented x3 SENSORIUM/ORIENTATION: Yes alert MENINGEAL SIGNS: Yes no meningeal signs Course Reevaluation(s): Reevaluation #1: Negative evaluation in the emergency department any acute findings. Patient can continue all home medications follow-up with primary care physician in 2 to 3 days. Patient is discharged home Time: 19:33 Vital Signs: Vital signs: Vital Signs Pulse Rate 57 L 12/03/20 19:04 Respiratory Rate 18 12/03/20 19:04 Blood Pressure 125/68 12/03/20 19:04 Pulse Oximetry 93 12/03/20 19:04 MDM - Abdominal Pain MDM Narrative: Medical decision making narrative: This patient is a 65-year-old female presents to the emerged from her local assisted living facility with complaint of right upper quadrant pain has been increasing in severity for the past week. Patient is not related to food. Patient states significantly tender to touch her pressing. Patient states she just very uncomfortable. Patient denies fever nausea vomiting. Negative evaluation in the emergency department any acute findings. Patient can continue all home medications follow-up with primary care physician in 2 to 3 days. Patient is discharged home Differential Diagnosis: Differential diagnosis abdominal pain: Likely abdominal pain, acute appendicitis, calculus of kidney, constipation, diverticulitis, endometriosis, gastroenteritis, pancreatitis and small bowel obstruction Medical Records: Attestation: I reviewed the patient's medical records. Lab Data: Attestation: I reviewed the patient's lab results. Labs: Lab Results 12/03/20 12/03/20 12/03/20 Range/Units 17:08 17:25 17:25 WBC 12.7 H (4.0-10.0) 10^3/ uL RBC 5.19 (4.1-5.3) 10^6/u L Hgb 14.4 (11.5-15.3) g/dL Hct 43.1 (37.0-47.0) % MCV 83.0 (81-99) fL MCH 27.7 L (28.0-34.0) pg MCHC 33.4 (30.0-36.0) g/dL RDW 13.2 (12.1-15.1) % Plt Count 269 (130-400) 10^3/c mm MPV 10.4 (7.4-10.4) fL Neut % (Auto) 59.4 % Lymph % (Auto) 27.1 % [place] % (Auto) 10.7 % Eos % (Auto) 1.8 % Baso % (Auto) 0.6 % Neut # (Auto) 7.54 (1.8-7.7) 10^3/u L Lymph # (Auto) 3.4 (0.8-4.8) 10^3/u L [place] # (Auto) 1.4 H (0.2-0.9) 10^3/u L Eos # (Auto) 0.2 (0.0-0.8) 10^3/u L Baso # (Auto) 0.1 (0.0-0.1) 10^3/u L Nucleated RBC % (a uto) 0 % Nucleated RBCs # 0.0 /100WBC Sodium 138 (136-145) mmol/L Potassium 4.0 (3.5-5.1) mmol/L Chloride 98 (98-107) mmol/L Carbon Dioxide 26 (22-29) mmol/L Anion Gap 18.0 (5-19) BUN 24 H (8-23) mg/dL Creatinine 0.6 (0.5-0.9) mg/dL GFR Calculation 99.7 (90-130) mL/min Glucose 226 H (65-115) mg/dL Calculated Osmolal ity 297 H (285-295) mOsm/k g Calcium 9.4 (8.5-10.5) mg/dL Total Bilirubin 0.2 (0.15-1.2) mg/dL AST 9 (0-32) U/L ALT 9 (0-33) U/L Alkaline Phosphata se 96 (35-105) IU/L Troponin T Baselin e (0-10) ng/L Total Protein 6.8 (6.6-8.7) g/dL Albumin 4.6 (3.5-5.2) g/dL Globulin 2.2 (1.3-4.6) g/dL Lipase 24 (13-60) U/L Urine Color Straw (Yellow) Urine Appearance Sl hazy (CLEAR) Urine pH 5 (5-7) Ur Specific Gravit y 1.010 (1.005-1.030) Urine Protein Neg (Negative) Urine Glucose (UA) 4+ H (Normal) Urine Ketones Negative (Negative) Urine Blood Neg (Negative) Urine Nitrate Negative (Negative) Urine Bilirubin Neg (Negative) Urine Urobilinogen Norm (Negative) mg/dL Ur Leukocyte Elenita ase Negative (Negative) Urine RBC None (0-2) /hpf Urine WBC 5-10 H (0-5) /hpf Ur Squamous Epith Cells 0-4 H (0-5) /hpf Amorphous Sediment Not Reportable Urine Bacteria 1+ H (NONE) /hpf 12/03/20 Range/Units 17:25 WBC (4.0-10.0) 10^3/ uL RBC (4.1-5.3) 10^6/u L Hgb (11.5-15.3) g/dL Hct (37.0-47.0) % MCV (81-99) fL MCH (28.0-34.0) pg MCHC (30.0-36.0) g/dL RDW (12.1-15.1) % Plt Count (130-400) 10^3/c mm MPV (7.4-10.4) fL Neut % (Auto) % Lymph % (Auto) % [place] % (Auto) % Eos % (Auto) % Baso % (Auto) % Neut # (Auto) (1.8-7.7) 10^3/u L Lymph # (Auto) (0.8-4.8) 10^3/u L [place] # (Auto) (0.2-0.9) 10^3/u L Eos # (Auto) (0.0-0.8) 10^3/u L Baso # (Auto) (0.0-0.1) 10^3/u L Nucleated RBC % (a uto) % Nucleated RBCs # /100WBC Sodium (136-145) mmol/L Potassium (3.5-5.1) mmol/L Chloride (98-107) mmol/L Carbon Dioxide (22-29) mmol/L Anion Gap (5-19) BUN (8-23) mg/dL Creatinine (0.5-0.9) mg/dL GFR Calculation (90-130) mL/min Glucose (65-115) mg/dL Calculated Osmolal ity (285-295) mOsm/k g Calcium (8.5-10.5) mg/dL Total Bilirubin (0.15-1.2) mg/dL AST (0-32) U/L ALT (0-33) U/L Alkaline Phosphata se (35-105) IU/L Troponin T Baselin e 10 (0-10) ng/L Total Protein (6.6-8.7) g/dL Albumin (3.5-5.2) g/dL Globulin (1.3-4.6) g/dL Lipase (13-60) U/L Urine Color (Yellow) Urine Appearance (CLEAR) Urine pH (5-7) Ur Specific Gravit y (1.005-1.030) Urine Protein (Negative) Urine Glucose (UA) (Normal) Urine Ketones (Negative) Urine Blood (Negative) Urine Nitrate (Negative) Urine Bilirubin (Negative) Urine Urobilinogen (Negative) mg/dL Ur Leukocyte Elenita ase (Negative) Urine RBC (0-2) /hpf Urine WBC (0-5) /hpf Ur Squamous Epith Cells (0-5) /hpf Amorphous Sediment Urine Bacteria (NONE) /hpf Imaging Data ^: CT Abd/Pel: Attestation: I personally reviewed and interpreted this imaging study as follows: Radiologist's impression: Negative evaluation for any acute findings US: Attestation: I personally reviewed and interpreted this imaging study as follows: Radiologist's impression: Negative gallbladder ultrasound EKG Data ^: EKG 1: Attestation: I personally reviewed and interpreted this EKG as follows: EKG interpretation date: 12/03/20 EKG interpretation time: 17:15 Prior EKG tracings: not available for review Ischemic changes: non-specific ST-T wave changes Interpretation: Sinus rhythm heart rate 67 otherwise normal EKG Discharge Plan Discharge Patient Disposition: Home Clinical Impression: Abdominal pain, Constipation Condition: Stable Prescriptions: No Action epinephrine [EpiPen] 0.3 mg/0.3 mL auto-injector 0.3 mg IM Q10M PRN (Reason: anaphylaxis) Qty: 1 RF: 1 hydrocodone-acetaminophen 10-325 mg tablet 1 tab PO Q8H PRN (Reason: severe pain) 30 Days Qty: 90 RF: 0 atorvastatin 40 mg tablet 80 mg PO DAILY@1999 RF: 0 polyethylene glycol 3350(bulk) [Base B,Polyethylene [id number]] Granules 1 ea miscellaneous DAILY@0800 RF: 0 tizanidine 2 mg capsule 2 mg PO BID PRN (Reason: MUSCLE SPASMS) RF: 0 pantoprazole 20 mg tablet,delayed release (DR/EC) 20 mg PO DAILY@0800 RF: 0 Tresiba FlexTouch U-100 100 unit/mL (3 mL) insulin pen 45 unit SUBCUT DAILY@1999 RF: 0 methylprednisolone acetate [Depo-Medrol] 40 mg/mL suspension 40 mg intra-articular ONCE Qty: 1 RF: 0 bupivacaine (PF) 0.25 % (2.5 mg/mL) solution 1 ml intra-articular ONCE Qty: 1 RF: 0 Tylenol 325 mg Tablet 650 mg PO QID PRN (Reason: PAIN/FEVER) RF: 0 loperamide 2 mg Capsule 2 mg PO Q6H PRN (Reason: Loose Stool) RF: 0 Milk of Magnesia 400 mg/5 mL Suspension 400 mg PO DAILY PRN (Reason: Constipation) RF: 0 bisacodyl 10 mg Suppository 10 mg GA DAILY PRN (Reason: Constipation) RF: 0 Fleet Enema 19-7 gram/118 mL Enema 118 ml GA DAILY PRN (Reason: Constipation) RF: 0 Culturelle 10 billion cell Capsule 1 cap PO DAILY PRN (Reason: ANTIBIOTIC THERAPY) RF: 0 Humalog KwikPen Insulin 100 unit/mL insulin pen 8 unit SUBCUT TID@08,12,20 RF: 0 lisinopril-hydrochlorothiazide 20-12.5 mg tablet 1 tab PO DAILY@0800 RF: 0 Klor-Con 10 10 mEq tablet extended release 10 meq PO DAILY@0800 RF: 0 Plavix 75 mg tablet 75 mg PO DAILY@0800 RF: 0 Adult Aspirin Regimen 81 mg tablet,delayed release (DR/EC) 81 mg PO DAILY@0800 RF: 0 dicyclomine 20 mg tablet 20 mg PO QID@08,12,16,20 RF: 0 Lasix 20 mg tablet 20 mg PO DAILY@0800 RF: 0 Ambien 10 mg tablet 10 mg PO BEDTIME@2000 RF: 0 escitalopram oxalate 10 mg tablet 10 mg PO DAILY@0800 RF: 0 Lyrica 100 mg capsule 100 mg PO BID@0800,1999 RF: 0 Farxiga 5 mg tablet 5 mg PO DAILY@0800 RF: 0 Humalog KwikPen Insulin 100 unit/mL Insulin Pen See Rx Instructions .ROUTE .COMPLEX RF: 0 Discharge Orders: Discharge ED (Routine); Ordered 12/03/20 Ordered By: Lucien Carrillo Referrals: Anders Griffin DO [Primary Care Provider] - Discharge Diet: Advance as tolerated Discharge Activity: Resume usual activity Patient Instructions: Opioid Safety, Abdominal Pain (ED) Activity Restrictions/Additional Instructions: Encourage p.o. fluids. Continue all home medications. Follow-up with primary care physician in 2 to 3 days. Take [id number] laxatives as needed for any constipation. Coding Level of Care Code ED Inventory Control Supervisor for Ayaan Fwd Exam Comprehensive
--- NOTE | 2020-12-03 17:05 | CTR_ITS ---
PROCEDURE INFORMATION: Exam: CT Abdomen And Pelvis With Contrast Exam date and time: 12/03/2020 5:56 PM Age: 65 years old Clinical indication: Abdominal pain; Localized; Right upper quadrant (ruq); Additional info: Abd pain TECHNIQUE: Imaging protocol: Computed tomography of the abdomen and pelvis with contrast. Radiation optimization: All CT scans at this facility use at least one of these dose optimization techniques: automated exposure control; mA and/or kV adjustment per patient size (includes targeted exams where dose is matched to clinical indication); or iterative reconstruction. Contrast material: OMNI 300; Contrast volume: 95 ml; Contrast route: INTRAVENOUS (IV); COMPARISON: CT abdomen pelvis wo con [id number] 07/27/2020 4:00 PM RADIATION DOSE METRICS: Total DLP (mGy-cm): 1573.42 FINDINGS: Liver: Liver is enlarged and measures 21 cm. Gallbladder and bile ducts: Normal. No calcified stones. No ductal dilation. Pancreas: Normal. No ductal dilation. Spleen: Normal. No splenomegaly. Adrenal glands: Normal. No mass. Kidneys and ureters: 1.6 cm cyst in the midpole of left kidney. Stomach and bowel: Diverticulosis of the sigmoid colon. Appendix: No evidence of appendicitis. Intraperitoneal space: Unremarkable. No free air. No significant fluid collection. Vasculature: Unremarkable. No abdominal aortic aneurysm. Lymph nodes: Unremarkable. No enlarged lymph nodes. Urinary bladder: Unremarkable as visualized. Reproductive: Unremarkable as visualized. Bones/joints: Chronic compression fracture of the L1 vertebra. Diffuse demineralization of the bones. Soft tissues: Unremarkable. CT/CT abdomen pelvis w con* [id number] IMPRESSION: No acute abdominal or pelvic abnormality. COMMENTS: Consistent with the [employer]'s Incidental Findings Committee white paper (J Am Sam Radiol 2018): Any incidental renal lesion less than 1 cm or classified as too small to characterize, or any incidental cystic renal lesion characterized as simple-appearing, is likely benign. No follow-up imaging is recommended for these lesions per consensus recommendations based on imaging criteria. Radiation Dose CTDIVOL = (mGy): DLP = 1573.42 (mGy-cm)
--- NOTE | 2020-12-03 17:05 | ECG_ITS ---
[facility] Test Date: 2020-12-03 Pat Name: Fatuma Ching Department: Room: Gender: Female Capsule Filler: : 1955 Requested By: Lucien Carrillo Order Number: [id number] Adeline MD: Feliz Alejandra M.D. Measurements Intervals [place] Rate: 67 P: 16 MA: 187 QRS: -22 QRSD: 100 T: 55 QT: 404 QTc: 427 Interpretive Statements SINUS RHYTHM LOW QRS VOLTAGE IN PRECORDIAL LEADS [QRS DEFLECTION < 1.0 mV IN CHEST LEADS] SEPTAL MYOCARDIAL INFARCTION [40+ ms Q WAVE IN V1/V2], PROBABLY OLD Compared to ECG 07/19/2020 17:45:57 Low QRS voltage now present Sinus tachycardia no longer present Myocardial infarct finding still present Electronically Signed On 12-03-2020 19:08:23 CDT by Feliz Alejandra M.D. [email or web address]
[2020-12-03 17:22] LABS: Add Urine Microscopic? YES; Bilirubin Urine Neg (Negative); Blood Urine Neg (Negative); Glucose Urine UA 4+ (Normal); Ketones Urine Negative (Negative); Leukocyte Esterase Urine Negative (Negative); Nitrate Urine Negative (Negative); Protein Urine Neg (Negative); Urine Appearance SL Hazy (CLEAR); Urine Color Straw (Yellow); Urobilinogen Urine Norm (Negative); pH Urine 5 (5-7)
[2020-12-03 17:30] LABS: Basophils # 0.1 10^3/uL (0.0-0.1); Basophils % 0.6 %; Eosinophils # 0.2 10^3/uL (0.0-0.8); Eosinophils % 1.8 %; Hematocrit 43.1 % (37.0-47.0); Hemoglobin 14.4 g/dL (11.5-15.3); Lymphocytes # 3.4 10^3/uL (0.8-4.8); Lymphocytes % 27.1 %; Mean Corpuscular HGB Conc 33.4 g/dL (30.0-36.0); Mean Corpuscular Hemoglobin 27.7 pg (28.0-34.0); Mean Platelet Volume 10.4 fL (7.4-10.4); Monocytes # 1.4 10^3/uL (0.2-0.9); Monocytes % 10.7 %; Neutrophils # 7.54 10^3/uL (1.8-7.7); Neutrophils % 59.4 %; Nucleated Red Blood Cells % 0 %; Platelet Count 269 10^3/cmm (130-400); Red Blood Count 5.19 10^6/uL (4.1-5.3); Red Cell Distribution Width 13.2 % (12.1-15.1); White Blood Count 12.7 10^3/uL (4.0-10.0)
[2020-12-03 17:34] LABS: Add Urine Culture? No; Bacteria Urine 1+ /hpf; Squamous Epithelial Cell Urine 0-4 /hpf (0-5)
[2020-12-03 17:39] VITALS: BP 134/78; PULSE 63; RESP 18; O2SAT 95
[2020-12-03] MEDS: ketorolac 30 mg/mL INJ IVP (17:39)
[2020-12-03] MEDS: sodium chloride 0.9% 1,000 ML 999 ML IV (17:39)
[2020-12-03] MEDS: ondansetron 2 mg/ML SDV 2 mL 4 MG IVP (17:40)
[2020-12-03 17:50] LABS: Troponin(5th) Baseline 10 ng/L (0-10)
[2020-12-03 17:51] LABS: Alanine Aminotransferase 9 U/L (0-33); Albumin Level 4.6 g/dL (3.5-5.2); Alkaline Phosphatase 96 IU/L (35-105); Aspartate Amino Transferase 9 U/L (0-32); Blood Urea Nitrogen 24 mg/dL (8-23); Calcium 9.4 mg/dL (8.5-10.5); Carbon Dioxide 26 mmol/L (22-29); Chloride 98 mmol/L (98-107); Creatinine Clr Calc Pharmacy 74.4462; Globulin 2.2 g/dL (1.3-4.6); Glomerular Filtration Rate 99.7 mL/min (90-130); Glucose 226 mg/dL (65-115); Lipase 24 U/L (13-60); Osmolality Calculated 297 mOsm/kg (285-295); Sodium 138 mmol/L (136-145); Total Bilirubin 0.2 mg/dL (0.15-1.2); Total Protein 6.8 g/dL (6.6-8.7)
[2020-12-03] MEDS: iohexol 300 mg/mL 100 mL Btl IV (18:00)
[2020-12-03 18:16] VITALS: BP 114/64; PULSE 57; RESP 18; O2SAT 96
[2020-12-03 19:04] VITALS: BP 125/68; PULSE 57; RESP 18; O2SAT 93
== END 2020-12-03 20:13 | disposition home or self-care (01) ==
PROVIDERS: Emergency Provider Emergency Medicine; PCP Internal Medicine
DX: K59.00 Constipation, unspecified (principal); Z79.02 Long term (current) use of antithrombotics/antiplatelets; Z79.82 Long term (current) use of aspirin; Z79.4 Long term (current) use of insulin; E11.9 Type 2 diabetes mellitus without complications
CPT/HCPCS: 74177; 76705; 80053; 81001; 83690; 84484; 85025; 93005; 96361; 96374; 96375; 99284; J1885; J2405; J7030; Q9967

== ENCOUNTER → 2020-12-27 12:58 | Outpatient (BNVA) | payer MEDICARE, MEDICAID, SELFPAY | PROVIDERS: PCP Internal Medicine; Visit Provider Anesthesiology Pain Medicine | DX: M79.18 Myalgia, other site (principal); M54.9 Dorsalgia, unspecified; M51.16 Intervertebral disc disorders with radiculopathy, lumbar region; S32.001K Stable burst fracture of unspecified lumbar vertebra, subsequent encounter for fracture with nonunion; X58.XXXD Exposure to other specified factors, subsequent encounter | CPT/HCPCS: 20553; 99213; 99214; J1030; J3490 ==

== ENCOUNTER → 2021-01-09 12:44 | Outpatient (BNVA) | payer MEDICARE, MEDICAID, SELFPAY | PROVIDERS: PCP Internal Medicine; Visit Provider Anesthesiology Pain Medicine | DX: M47.816 Spondylosis without myelopathy or radiculopathy, lumbar region (principal); M54.9 Dorsalgia, unspecified; Z79.891 Long term (current) use of opiate analgesic | CPT/HCPCS: 64493; 64494; 64495; J3490 ==

== ENCOUNTER → 2021-01-23 10:29 | Outpatient (BNVA) | payer MEDICARE, MEDICAID, SELFPAY | PROVIDERS: PCP Internal Medicine; Visit Provider Anesthesiology Pain Medicine | DX: M51.16 Intervertebral disc disorders with radiculopathy, lumbar region (principal); S32.001K Stable burst fracture of unspecified lumbar vertebra, subsequent encounter for fracture with nonunion; X58.XXXD Exposure to other specified factors, subsequent encounter; Z79.891 Long term (current) use of opiate analgesic | CPT/HCPCS: 99214 ==

== ENCOUNTER → 2021-02-25 12:57 | Outpatient (BNVA) | payer MEDICARE, MEDICAID, SELFPAY | PROVIDERS: PCP Internal Medicine; Visit Provider Anesthesiology Pain Medicine | DX: M47.816 Spondylosis without myelopathy or radiculopathy, lumbar region (principal); S32.001K Stable burst fracture of unspecified lumbar vertebra, subsequent encounter for fracture with nonunion; X58.XXXD Exposure to other specified factors, subsequent encounter; Z79.891 Long term (current) use of opiate analgesic | CPT/HCPCS: 64635; 64636 ==

== ENCOUNTER → 2021-04-02 13:15 | Outpatient (BNVA) | payer MEDICARE, MEDICAID, SELFPAY | PROVIDERS: PCP Internal Medicine; Visit Provider Anesthesiology Pain Medicine | DX: Z01.812 Encounter for preprocedural laboratory examination (principal); E11.9 Type 2 diabetes mellitus without complications; M47.816 Spondylosis without myelopathy or radiculopathy, lumbar region; S32.001K Stable burst fracture of unspecified lumbar vertebra, subsequent encounter for fracture with nonunion; Z79.4 Long term (current) use of insulin; Z79.891 Long term (current) use of opiate analgesic; X58.XXXD Exposure to other specified factors, subsequent encounter | CPT/HCPCS: 36416; 64635; 64636; 82962; 99212; J1030 ==

== ENCOUNTER → 2021-04-24 08:53 | Outpatient (BNVA) | payer MEDICARE, MEDICAID, SELFPAY | PROVIDERS: PCP Internal Medicine; Visit Provider Anesthesiology Pain Medicine | DX: G89.29 Other chronic pain (principal); M51.16 Intervertebral disc disorders with radiculopathy, lumbar region; S32.001K Stable burst fracture of unspecified lumbar vertebra, subsequent encounter for fracture with nonunion; X58.XXXD Exposure to other specified factors, subsequent encounter; Z79.891 Long term (current) use of opiate analgesic | CPT/HCPCS: 99213 ==

== ENCOUNTER → 2021-05-27 08:50 | Outpatient (BNVA) | payer MEDICARE, MEDICAID, SELFPAY | PROVIDERS: PCP Internal Medicine; Visit Provider Anesthesiology Pain Medicine | DX: M51.16 Intervertebral disc disorders with radiculopathy, lumbar region (principal); M47.816 Spondylosis without myelopathy or radiculopathy, lumbar region; Z91.81 History of falling; Z79.891 Long term (current) use of opiate analgesic | CPT/HCPCS: 99214 ==

== ENCOUNTER 2021-05-28 10:06 | Outpatient (CLI) | payer MEDICARE, MEDICAID, SELFPAY ==
--- NOTE | 2021-05-28 10:12 | XR_ITS ---
WS: [id number] LUMBAR SPINE: 5 VIEWS TECHNIQUE: AP, obliques, lateral and L5-S1 spot. HISTORY: M47.816 - Spondylosis without myelopathy or radiculopathy... COMPARISON: 03/15/2009 Moderate LEFT curvature rotoscoliosis of the lumbar spine with progression since the prior examinatio n. Severe vertebral planar compression fracture at L1 with retropulsion by 3 mm. Advanced degenerativ e disc disease and facet arthritis. Neural foramina are narrowed bilaterally. Most significant narrowing is from L1-2 through L4-5. SI joints are symmetric bilaterally. No soft tissue abnormalities. Scattered calcification within the aorta. XR/XR lumbar spine min 4V 32802 IMPRESSION: 1. Severe degenerative disc disease and moderate degenerative rotoscoliosis wi thin the lumbar spine. 2. Remote appearing L1 vertebral planar compression fracture was present on a prior CT of 07/27/2020. 3. Multilevel bilateral foraminal stenosis most significant from L1-2 through L4-5.
== END 2021-05-28 10:07 | disposition home or self-care (01) ==
PROVIDERS: PCP Internal Medicine; Visit Provider Anesthesiology Pain Medicine
DX: M47.816 Spondylosis without myelopathy or radiculopathy, lumbar region (principal); M51.36 Other intervertebral disc degeneration, lumbar region; M41.86 Other forms of scoliosis, lumbar region; S32.019A Unspecified fracture of first lumbar vertebra, initial encounter for closed fracture; X58.XXXA Exposure to other specified factors, initial encounter; M48.061 Spinal stenosis, lumbar region without neurogenic claudication
CPT/HCPCS: 72110

== ENCOUNTER → 2021-06-17 09:41 | Outpatient (BNVA) | payer MEDICARE, MEDICAID, SELFPAY | PROVIDERS: PCP Internal Medicine; Visit Provider Anesthesiology Pain Medicine | DX: M51.16 Intervertebral disc disorders with radiculopathy, lumbar region (principal); Z79.891 Long term (current) use of opiate analgesic | CPT/HCPCS: 99214 ==

== ENCOUNTER → 2021-07-15 09:20 | Outpatient (BNVA) | payer MEDICARE, MEDICAID, SELFPAY | PROVIDERS: PCP Internal Medicine; Visit Provider Anesthesiology Pain Medicine | DX: M51.16 Intervertebral disc disorders with radiculopathy, lumbar region (principal); Z79.891 Long term (current) use of opiate analgesic; Z91.81 History of falling | CPT/HCPCS: 99214 ==

== ENCOUNTER 2021-07-16 15:31 | Outpatient (CLI) | payer MEDICARE, MEDICAID, SELFPAY ==
--- NOTE | 2021-07-16 15:45 | USCV_ITS ---
Fatuma Ching Age: 65 Gender: F : 1955 Exam Date: 07/16/2021 15:46 Ordering Phys: Masoud Charles MD (Andy) ([email or web address] [place] Technologist: Flory Badillo [place] [facility] [place]: STENOSIS Risk Factors: Unknown Previous Vascular Surgery: None Right Brachial BP: / Left Brachial BP: / Right Left Velocity (cm/s) Spectral Plaque Velocity (cm/s) Spectral Plaque Syst/Diast Broadening Syst/Diast Broadening 55.10/ 34.70 Prox CCA 76.00 / 16.20 57.30/ 22.10 Mid CCA 82.90 / 19.70 57.30/ 26.50 Hetro Distal CCA 73.50 / 15.40 Hetro 108.10/22.10 Prox ICA 55.50 / 15.40 87.10/ 22.10 Mid ICA 79.50 / 17.10 34.60/ 7.40 Distal ICA 76.00 / 21.40 196.00 ECA 75.20 1.88 ICA/CCA 0.96 Antegrade Vertebral Antegrade 76.90/ 21.40 cm/s 41.00/ 11.10 cm/s Tri Subclavian Tri 76.00 103.4 0 FINDINGS Comparison:. 12/27/14. No significant elevation of systolic or diastolic velocities. Mild bilateral scattered calcified plaque and intimal thickening throughout the common carotid arteries and extending through the bifurcation. Antegrade vertebral arteries. CONCLUSIONS Bilateral ICA stenosis less than 50%. Mild bilateral carotid atherosclerosis. Dr. Erin Iglesias DO (Electronically Signed) Final Date: 16 July 2021 16:53 S
== END 2021-07-16 15:32 | disposition home or self-care (01) ==
LOC: RAD 15:35
PROVIDERS: PCP Internal Medicine; Visit Provider Thoracic Surgery (Cardiothoracic Vascular Surgery)
DX: I65.23 Occlusion and stenosis of bilateral carotid arteries (principal)
CPT/HCPCS: 93880

== ENCOUNTER → 2021-08-12 11:07 | Outpatient (BNVA) | payer MEDICARE, MEDICAID, SELFPAY | PROVIDERS: PCP Internal Medicine; Visit Provider Anesthesiology Pain Medicine | DX: M51.16 Intervertebral disc disorders with radiculopathy, lumbar region (principal); Z79.891 Long term (current) use of opiate analgesic | CPT/HCPCS: 99214 ==

== ENCOUNTER → 2021-09-05 13:59 | Outpatient (BNVA) | payer MEDICARE, MEDICAID, SELFPAY | PROVIDERS: PCP Internal Medicine; Visit Provider Anesthesiology Pain Medicine | DX: M51.16 Intervertebral disc disorders with radiculopathy, lumbar region (principal); Z79.891 Long term (current) use of opiate analgesic | CPT/HCPCS: 99214 ==

== ENCOUNTER → 2021-10-02 13:19 | Outpatient (BNVA) | payer MEDICARE, MEDICAID, SELFPAY | PROVIDERS: PCP Internal Medicine; Visit Provider Anesthesiology Pain Medicine | DX: M51.16 Intervertebral disc disorders with radiculopathy, lumbar region (principal); Z79.891 Long term (current) use of opiate analgesic | CPT/HCPCS: 99214 ==

== ENCOUNTER → 2021-10-15 09:48 | Outpatient (BNVA) | payer MEDICARE, MEDICAID, SELFPAY | PROVIDERS: PCP Internal Medicine; Visit Provider Podiatrist Foot & Ankle Surgery | DX: E11.8 Type 2 diabetes mellitus with unspecified complications (principal); L84 Corns and callosities; L60.3 Nail dystrophy; M21.611 Bunion of right foot; M20.41 Other hammer toe(s) (acquired), right foot; M20.42 Other hammer toe(s) (acquired), left foot; M21.612 Bunion of left foot | CPT/HCPCS: 11055; 11721 ==

== ENCOUNTER → 2021-10-29 12:44 | Outpatient (BNVA) | payer MEDICARE, MEDICAID, SELFPAY | PROVIDERS: PCP Internal Medicine; Visit Provider Anesthesiology Pain Medicine | DX: M51.16 Intervertebral disc disorders with radiculopathy, lumbar region (principal); Z91.81 History of falling; Z79.891 Long term (current) use of opiate analgesic | CPT/HCPCS: 99214; J1030; J3490 ==

== ENCOUNTER → 2021-11-28 13:01 | Outpatient (BNVA) | payer MEDICARE, MEDICAID, SELFPAY | PROVIDERS: PCP Internal Medicine; Visit Provider Anesthesiology Pain Medicine | DX: M51.16 Intervertebral disc disorders with radiculopathy, lumbar region (principal); Z79.891 Long term (current) use of opiate analgesic | CPT/HCPCS: 99214 ==

== ENCOUNTER → 2021-12-23 10:53 | Outpatient (BNVA) | payer MEDICARE, MEDICAID, SELFPAY | PROVIDERS: PCP Internal Medicine; Visit Provider Anesthesiology Pain Medicine | DX: M51.16 Intervertebral disc disorders with radiculopathy, lumbar region (principal); Z79.891 Long term (current) use of opiate analgesic; Z91.81 History of falling | CPT/HCPCS: 99213 ==

== ENCOUNTER → 2022-01-20 10:48 | Outpatient (BNVA) | payer MEDICARE, MEDICAID, SELFPAY | PROVIDERS: PCP Internal Medicine; Visit Provider Anesthesiology Pain Medicine | DX: M51.16 Intervertebral disc disorders with radiculopathy, lumbar region (principal); Z79.891 Long term (current) use of opiate analgesic | CPT/HCPCS: 99214 ==

== ENCOUNTER → 2022-01-28 08:03 | Outpatient (BNVA) | payer MEDICARE, MEDICAID, SELFPAY | PROVIDERS: PCP Internal Medicine; Visit Provider Podiatrist Foot & Ankle Surgery | DX: E11.8 Type 2 diabetes mellitus with unspecified complications (principal); L84 Corns and callosities; L60.3 Nail dystrophy; M20.41 Other hammer toe(s) (acquired), right foot; M20.42 Other hammer toe(s) (acquired), left foot; M21.611 Bunion of right foot; M21.612 Bunion of left foot | CPT/HCPCS: 11055; 11721 ==

== ENCOUNTER → 2022-03-04 12:45 | Outpatient (BNVA) | payer MEDICARE, MEDICAID, SELFPAY | PROVIDERS: PCP Internal Medicine; Visit Provider Anesthesiology Pain Medicine | DX: Z01.812 Encounter for preprocedural laboratory examination (principal); M47.816 Spondylosis without myelopathy or radiculopathy, lumbar region; E11.9 Type 2 diabetes mellitus without complications; Z79.4 Long term (current) use of insulin | CPT/HCPCS: 36416; 64635; 64636; 82962; J1030 ==

== ENCOUNTER → 2022-03-18 09:35 | Outpatient (BNVA) | payer MEDICARE, MEDICAID, SELFPAY | PROVIDERS: PCP Internal Medicine; Visit Provider Anesthesiology Pain Medicine | DX: M51.16 Intervertebral disc disorders with radiculopathy, lumbar region (principal); Z91.81 History of falling | CPT/HCPCS: 99214 ==

== ENCOUNTER → 2022-04-15 10:32 | Outpatient (BNVA) | payer MEDICARE, MEDICAID, SELFPAY | PROVIDERS: PCP Internal Medicine; Visit Provider Anesthesiology Pain Medicine | DX: M51.16 Intervertebral disc disorders with radiculopathy, lumbar region (principal); M25.562 Pain in left knee | CPT/HCPCS: 99214 ==

== ENCOUNTER 2022-04-23 12:20 | Outpatient (CLI) | payer MEDICARE, MEDICAID, SELFPAY ==
--- NOTE | 2022-04-23 | XR_ITS ---
WS: [id number] DEXA (DUAL ENERGY X-RAY ABSORPTIOMETRY) Bone mineral density was performed using a Extreme Re[employer] machine. HISTORY: COMPRESSION FX COMPARISON: None available. Lumbar spine BMD (L1-L4): 1.320 g/cm2 T score: 1.2 Z score: 1.6 Total hip BMD: Left: 0.826 g/cm2. T score: -1.4 Z score: -0.9 Right: 0.883 g/cm2. T score: -1.0 Z score: -0.4 10 year probability of a major osteoporotic fracture is 18.6%. LEFT curvature lumbar spine. Increased sclerosis along the concave surface of the lumbar spine. XR/XR DEXA axial skeleton* [id number] IMPRESSION: OSTEOPOROSIS based upon the WHO classification for females.
== END 2022-04-23 12:21 | disposition home or self-care (01) ==
LOC: RAD 12:20
PROVIDERS: PCP Internal Medicine; Visit Provider Internal Medicine
DX: S32.010A Wedge compression fracture of first lumbar vertebra, initial encounter for closed fracture (principal); X58.XXXA Exposure to other specified factors, initial encounter; M81.0 Age-related osteoporosis without current pathological fracture
CPT/HCPCS: 77080

== ENCOUNTER → 2022-04-29 08:48 | Outpatient (BNVA) | payer MEDICARE, MEDICAID, SELFPAY | PROVIDERS: PCP Internal Medicine; Visit Provider Podiatrist Foot & Ankle Surgery | DX: E11.8 Type 2 diabetes mellitus with unspecified complications (principal); M21.611 Bunion of right foot; Z79.84 Long term (current) use of oral hypoglycemic drugs; M21.612 Bunion of left foot; L84 Corns and callosities; L60.3 Nail dystrophy; M20.41 Other hammer toe(s) (acquired), right foot; M20.42 Other hammer toe(s) (acquired), left foot | CPT/HCPCS: 11055; 11721 ==

== ENCOUNTER → 2022-05-13 10:40 | Outpatient (BNVA) | payer MEDICARE, MEDICAID, SELFPAY | PROVIDERS: PCP Internal Medicine; Visit Provider Anesthesiology Pain Medicine | DX: M51.16 Intervertebral disc disorders with radiculopathy, lumbar region (principal); M17.12 Unilateral primary osteoarthritis, left knee | CPT/HCPCS: 99214 ==

== ENCOUNTER → 2022-05-26 13:43 | Outpatient (BNVA) | payer MEDICARE, MEDICAID, SELFPAY | PROVIDERS: PCP Internal Medicine; Visit Provider Anesthesiology Pain Medicine | DX: M54.16 Radiculopathy, lumbar region (principal); E11.42 Type 2 diabetes mellitus with diabetic polyneuropathy; Z79.4 Long term (current) use of insulin | CPT/HCPCS: 36416; 62323; 82962 ==

== ENCOUNTER → 2022-06-11 08:51 | Outpatient (BNVA) | payer MEDICARE, MEDICAID, SELFPAY | PROVIDERS: PCP Internal Medicine; Visit Provider Anesthesiology Pain Medicine | DX: M51.16 Intervertebral disc disorders with radiculopathy, lumbar region (principal); M25.562 Pain in left knee | CPT/HCPCS: 99214 ==

== ENCOUNTER → 2022-07-14 09:04 | Outpatient (BNVA) | payer MEDICARE, MEDICAID, SELFPAY | PROVIDERS: PCP Internal Medicine; Visit Provider Anesthesiology Pain Medicine | DX: M51.16 Intervertebral disc disorders with radiculopathy, lumbar region (principal); M25.562 Pain in left knee | CPT/HCPCS: 99214 ==

== ENCOUNTER 2022-07-16 09:38 | Inpatient (IN) | payer MEDICARE, MEDICAID, SELFPAY ==
[2022-07-16] VITALS (67 sets, daily range): BP systolic 120–201; BP diastolic 63–99; PULSE 53–62; RESP 0–34; TEMP 36.8; O2SAT 88–100; BMI 46.7; BMI 43.5
--- NOTE | 2022-07-16 09:39 | W.ED.SOB ---
HPI - SOB/Dyspnea General: Chief Complaint: ER Hold Stated Complaint: RESP. DISTRESS Time Seen by Provider: 07/16/22 09:39 History of Present Illness: HPI Narrative: Ms. Ching is a 66-year-old lady with history of hypertension, hyperlipidemia, diastolic heart failure, diabetes presenting to the emergency department due to respiratory distress. Perhaps she felt more tired yesterday however this morning she got up to use the bathroom and when she returned staff at her assisted living facility noted her to be cyanotic. Upon EMS arrival patient was found to have oxygen saturation in the 50s with moderate improvement with CPAP and albuterol treatment. Patient mildly somnolent though does awaken and answer questions appropriately. No reported baseline oxygen use or history of COPD/lung disease. Intensity symptoms is moderate to severe. Course is mildly improved with CPAP. No other specific changes in health, exacerbating, or alleviating factors identified. 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 Degenerative disc disease Lumbar disc disease with radiculopathy Right-sided carotid artery disease Type 2 diabetes mellitus Surgical History No pertinent past surgical history Family History Other CAD (coronary artery disease) Diabetes Social History Smoking and tobacco status: never smoked Second hand smoke exposure: No Alcohol intake: never Caregiver/support person: Yes Lives independently: Yes Household members: caregiver Housing: House History of recent travel: No Physical Exam Const: COMMON NORMALS: alert GENERAL APPEARANCE: cooperative, well developed and ill appearing (Somewhat) HENMT: COMMON NORMALS: normocephalic and atraumatic HEAD & SCALP: normocephalic and atraumatic THROAT: posterior oropharynx normal Eye: COMMON NORMALS: conjunctivae normal CONJUNCTIVA: Yes conjunctivae normal SCLERA: sclerae normal Neck/C-Spine: COMMON NORMALS: supple GENERAL: Yes trachea midline Resp: EFFORT & INSPECTION: Yes tachypneic and Yes respiratory distress AUSCULTATION: crackles and rhonchi Cardio: COMMON NORMALS: regular rate and regular rhythm RATE: regular rate RHYTHM: regular rhythm GI: COMMON NORMALS: Soft to palpation PALPATION: Yes Soft to palpation and No Tenderness to palpation present (GI) Extremity: GENERAL: Yes normal exam except as noted and No edema Neuro: COMMON NORMALS: moves all extremities SENSORIUM/ORIENTATION: Yes alert and No Orientation impaired Psych: COMMON NORMALS: mental status grossly normal and Normal thought process present THOUGHT PROCESS: Normal thought process present Course Vital Signs: Vital signs: Vital Signs Temperature 98.4 F 07/21/22 17:18 Pulse Rate 70 07/21/22 17:18 Respiratory Rate 18 07/21/22 17:18 Blood Pressure 115/50 07/21/22 17:18 Pulse Oximetry 96 07/21/22 17:18 Oxygen Delivery Me thod 07/21/22 15:51 Oxygen Flow Rate 3 07/21/22 09:07 Fraction of Inspir ed Oxygen 35 07/18/22 23:14 MDM - SOB/Dyspnea Medical Decision Making 66-year-old lady not typically on oxygen presenting with significant respiratory distress. Exam as above. Patient transitioned to our BiPAP. RT at bedside. Initial ABG with evidence of hypercapnic and hypoxic respiratory failure. EKG notable for sinus rhythm with normal intervals, borderline right axis deviation, nonspecific ST segment abnormalities. Labs notable for leukocytosis and mild hemoconcentration compared to prior, normal platelet count. Metabolic panel with mild hypokalemia, elevated BUN and creatinine worsened when compared to baseline, transaminitis and elevated BNP. The 2-hour delta troponin is in the negative range. No evidence of urinary tract infection. Chest x-ray reviewed with new right perihilar opacities and left lower lobe opacities, no pneumothorax. Given severity of illness as well as other clinical exam findings and provided history CT imaging is felt to be appropriate. CT with no main pulmonary embolism, somewhat limited study otherwise however there is some evidence of enterocolitis. During ED course patient treated with antibiotics for community-acquired pneumonia, albuterol treatment, Lasix. She was continued on BiPAP. Most likely etiology of patient's symptoms is acute hypoxic and hypercapnic respiratory failure secondary to acute exacerbation of underlying condition/lung disease and infection with associated metabolic derangements and RHONDA. The results of ED evaluation were discussed with the patient including plan for admission due to requirement for level of care not available if discharged to prevent significant worsening/deterioration. Patient agreeable with plan. Discussed with hospitalist service who was agreeable to admit patient. Medical Records I reviewed the patient's medical records. Lab Data I reviewed the patient's lab results. 07/17/22 02:50 07/17/22 02:50 Labs/Radiology: Radiology Impressions Chest/Abdomen/Pelvis CT 07/16/22 10:55 IMPRESSION: 1. Study is suboptimal due to patient motion, size and artifact from the patient's arms. 2. No central pulmonary embolism. 3. Small RIGHT pleural effusion with bibasilar atelectasis. 4. Motion artifact involving the visceral organs. Note definite abnormality identified involving the gallbladder. There is mild haziness but I believe this is secondary to artifact. 5. Small amount of ascites within the abdomen and pelvis. 6. Edema within a focal small bowel loop in the central abdomen suspicious for enterocolitis. No obstruction. 7. Extensive diverticular disease. There is fluid along the sigmoid colon but no focal acute diverticulitis. 8. No free air is identified but small foci of air may not be visualized with this amount of motion and artifact. 9. Variable enhancement throughout the liver. Heterogeneous liver. Probably due to motion. KUB X-Ray 07/18/22 09:55 IMPRESSION: Gaseous distention of the stomach otherwise unremarkable bowel gas pattern. Chest X-Ray 07/19/22 08:00 IMPRESSION: Imaging findings suggestive of pulmonary congestion. Pneumonia should be excluded clinically. Laboratory Results WBC 14.1 10^3/uL (4.0-10.0) H 07/16/22 10:00 RBC 5.64 10^6/uL (4.1-5.3) H 07/16/22 10:00 Hgb 14.3 g/dL (11.5-15.3) 07/16/22 10:00 Hct 49.8 % (37.0-47.0) H 07/16/22 10:00 MCV 88.3 fl (81-99) 07/16/22 10:00 MCH 25.4 pg (28.0-34.0) L 07/16/22 10:00 MCHC 28.7 g/dL (30.0-36.0) L 07/16/22 10:00 RDW 16.3 % (12.1-15.1) H 07/16/22 10:00 Plt Count 294 10^3/cmm (130-400) 07/16/22 10:00 MPV 11.2 fL (7.4-10.4) H 07/16/22 10:00 Neut % (Auto) 77.5 % 07/16/22 10:00 Lymph % (Auto) 12.9 % 07/16/22 10:00 [place] % (Auto) 7.9 % 07/16/22 10:00 Eos % (Auto) 0.0 % 07/16/22 10:00 Baso % (Auto) 0.3 % 07/16/22 10:00 Neut # (Auto) 10.91 10^3/uL (1.8-7.7) H 07/16/22 10:00 Lymph # (Auto) 1.8 10^3/uL (0.8-4.8) 07/16/22 10:00 [place] # (Auto) 1.1 10^3/uL (0.2-0.9) H 07/16/22 10:00 Eos # (Auto) 0.0 10^3/uL (0.0-0.8) 07/16/22 10:00 Baso # (Auto) 0.0 10^3/uL (0.0-0.1) 07/16/22 10:00 Nucleated RBC % (auto) 0.4 % 07/16/22 10:00 Nucleated RBCs # 0.1 /100WBC 07/16/22 10:00 D-Dimer 2.19 ug/mIFEU (0-0.59) H 07/16/22 10:14 Specimen Type Arterial 07/16/22 11:15 Sample Site Radial, right 07/16/22 11:15 ABG pH 7.25 (7.35-7.45) L 07/16/22 11:15 ABG pCO2 72.5 mmHg (35-45) H* 07/16/22 11:15 ABG pO2 82.2 mmHg (80.0-100.0) 07/16/22 11:15 ABG HCO3 31.8 mmol/L (22-26) H 07/16/22 11:15 ABG Base Excess 2.4 mmol/L (-2.0-2.0) H 07/16/22 11:15 Av Test Pos 07/16/22 11:15 Hematocrit 41.7 % (37-47) 07/16/22 11:15 Hgb O2 Saturation 93.3 % (95-100) L 07/16/22 09:49 Carboxyhemoglobin 1.6 %THgb (0.4-20.1) 07/16/22 09:49 Methemoglobin 1.0 % (0.4-1.5) 07/16/22 09:49 Total Hemoglobin 14.5 g/dL (12-16) 07/16/22 09:49 O2 Delivery Device Bipap 07/16/22 11:15 FiO2 50.0 % 07/16/22 11:15 Counter Tacker ID [place] 07/16/22 11:15 Sodium 139 mmol/L (136-145) 07/16/22 10:34 Potassium 5.4 mmol/L (3.5-5.1) H 07/16/22 10:34 Chloride 99 mmol/L (98-107) 07/16/22 10:34 Carbon Dioxide 24 mmol/L (22-29) 07/16/22 10:34 Anion Gap 21.4 (5-19) H 07/16/22 10:34 BUN 58 mg/dL (8-23) H 07/16/22 10:34 Creatinine 1.4 mg/dL (0.5-0.9) H 07/16/22 10:34 GFR Calculation 37.4 mL/min (90-130) L 07/16/22 10:34 Glucose 189 mg/dL (65-115) H 07/16/22 10:34 POC Glucose 182 mg/dL (70-110) H 07/16/22 11:24 Calculated Osmolality 309 mOsm/kg (285-295) H 07/16/22 10:34 Lactic Acid 1.5 mmol/L (0.5-2.2) 07/16/22 10:14 Calcium 8.6 mg/dL (8.5-10.5) 07/16/22 10:34 Total Bilirubin 0.2 mg/dL (0.15-1.2) 07/16/22 10:34 AST 50 U/L (0-32) H 07/16/22 10:34 ALT 60 U/L (0-33) H 07/16/22 10:34 Alkaline Phosphatase 86 U/L (35-105) 07/16/22 10:34 Troponin T Baseline 38 ng/L (0-10) H 07/16/22 10:34 Troponin T 120 Minute 35.72 ng/L (0-10) H 07/16/22 13:20 Delta Troponin T -2.28 ABS# (0-10) L 07/16/22 13:20 NT-Pro-B Natriuret Pep 82256 pg/mL (0-125) H 07/16/22 10:34 Total Protein 6.8 g/dL (6.6-8.7) 07/16/22 10:34 Albumin 3.6 g/dL (3.5-5.2) 07/16/22 10:34 Globulin 3.2 g/dL (1.3-4.6) 07/16/22 10:34 Procalcitonin 0.09 ng/mL (0-0.5) 07/16/22 13:20 Urine Color Yellow (Yellow) 07/16/22 13:52 Urine Appearance Hazy (CLEAR) A 07/16/22 13:52 Urine pH 5 (5-7) 07/16/22 13:52 Ur Specific [place] 1.015 (1.005-1.030) 07/16/22 13:52 Urine Protein Neg (Negative) 07/16/22 13:52 Urine Glucose (UA) 1+ (Normal) H 07/16/22 13:52 Urine Ketones Negative (Negative) 07/16/22 13:52 Urine Blood Neg (Negative) 07/16/22 13:52 Urine Nitrate Negative (Negative) 07/16/22 13:52 Urine Bilirubin Neg (Negative) 07/16/22 13:52 Urine Urobilinogen Neg mg/dL (Negative) 07/16/22 13:52 Ur Leukocyte Esterase Negative (Negative) 07/16/22 13:52 Urine RBC Rare /hpf (0-2) 07/16/22 13:52 Urine WBC 5-10 /hpf (0-5) H 07/16/22 13:52 Ur Squamous Epith Cells 0-4 /hpf (0-5) H 07/16/22 13:52 Amorphous Sediment Not Reportable 07/16/22 13:52 Urine Bacteria 1+ /hpf (NONE) H 07/16/22 13:52 Influenza Type A Ag negative (Negative) 07/16/22 10:00 Influenza Type B Ag negative (Negative) 07/16/22 10:00 SARS-CoV-2 Ag (Rapid) negative (Negative) 07/16/22 10:00 Critical Care Time Critical Care Time: Critical Care Time: Yes Total Critical Care Time: 50 Attestation: Due to a high probability of clinically significant, possibly life threatening deterioration, the patient required my highest level of attention and preparedness to intervene emergently and I personally spent this critical care time directly and personally managing the patient. This critical care time included obtaining a history; examining the patient; pulse oximetry; ordering and review of laboratory and imaging studies; arranging urgent treatment with development of a management plan; evaluation of patient's response to treatment; frequent reassessment; and, discussions with other providers as applicable. It was exclusive of separately billable procedures. Primary system involved is respiratory Discharge Plan Discharge Patient Disposition: Admitted As Inpatient Admit Provider: Yoly Soler Clinical Impression: Acute exacerbation of congestive heart failure, Acute respiratory failure with hypoxia and hypercapnia, RHONDA (acute kidney injury), Transaminitis Condition: Stable Coding Level of Care Code ED Arts Therapist for [facility] Exam Comprehensive
--- NOTE | 2022-07-16 09:40 | XRR_ITS ---
PROCEDURE INFORMATION: Exam: XR Chest Exam date and time: 07/16/2022 10:14 AM Age: 66 years old Clinical indication: Shortness of breath; Additional info: SOB TECHNIQUE: Imaging protocol: Radiologic exam of the chest. Views: 1 view. COMPARISON: CR XR chest 1V portable [id number] 07/27/2020 12:58 AM FINDINGS: Lungs: There is diffuse right perihilar and lower lobe parenchymal density consistent with pulmonary edema. Left lower lobe opacity which may reflect effusion or pulmonary edema. Pleural spaces: Unremarkable. No pleural effusion. No pneumothorax. Heart/Mediastinum: Unremarkable. No cardiomegaly. Bones/joints: Unremarkable. Other findings: These findings were not seen on prior examination XR/XR chest 1V portable [id number] IMPRESSION: 1. Opacities right perihilar consistent with pulmonary edema 2. Opacities left lower lobe consistent with pulmonary edema or effusion
--- NOTE | 2022-07-16 09:50 | ECG_ITS ---
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 Measurements Intervals [place] Rate: 61 P: 59 AL: 189 QRS: 113 QRSD: 102 T: 44 QT: 400 QTc: 405 Interpretive Statements SINUS RHYTHM POSSIBLE ANTERIOR MYOCARDIAL INFARCTION , OF INDETERMINATE AGE [30 ms Q WAVE IN V3/V4, OR R < 0.2 mV IN V4] Compared to ECG 12/03/2020 17:15:57 No significant changes Electronically Signed On 07-17-2022 10:06:47 LABORATORY SPECIALIST by Kasie Keller M.D. [id number]
[2022-07-16 10:00] LABS: ABG PH Result 7.22 (7.35-7.45); Arterial Blood Gas Hematocrit 44.3 % (37-47); Base Excess ABG 1.7 mmol/L (-2.0-2.0); Blood Gas Allen Test Pos; Blood Gas Operator Identificat WALCI; Blood Gas Sample Site Radial, right; Blood Gas Sample Type Arterial; Carboxyhemoglobin 1.6 %THgb (0.4-20.1); HCO3 ABG 31.9 mmol/L (22-26); HGB O2 Sat 93.3 % (95-100); Oxygen Device BIPAP; PO2 ABG 94.3 mmHg (80.0-100.0); Total Hemoglobin 14.5 g/dL (12-16)
[2022-07-16 10:01] LABS: ABG PCO2 77.5 mmHg (35-45)
[2022-07-16] MEDS: ipratropium-albuterol 3 mL Neb INHALATION ×2 (10:09→21:23)
[2022-07-16 10:12] LABS: Basophils % 0.3 %; Hematocrit 49.8 % (37.0-47.0); Hemoglobin 14.3 g/dL (11.5-15.3); Lymphocytes # 1.8 10^3/uL (0.8-4.8); Lymphocytes % 12.9 %; Mean Corpuscular HGB Conc 28.7 g/dL (30.0-36.0); Mean Corpuscular Hemoglobin 25.4 pg (28.0-34.0); Mean Corpuscular Volume 88.3 fl (81-99); Mean Platelet Volume 11.2 fL (7.4-10.4); Monocytes # 1.1 10^3/uL (0.2-0.9); Monocytes % 7.9 %; Neutrophils # 10.91 10^3/uL (1.8-7.7); Neutrophils % 77.5 %; Nucleated Red Blood Cells # 0.1 /100WBC; Nucleated Red Blood Cells % 0.4 %; Platelet Count 294 10^3/cmm (130-400); Red Blood Count 5.64 10^6/uL (4.1-5.3); Red Cell Distribution Width 16.3 % (12.1-15.1); White Blood Count 14.1 10^3/uL (4.0-10.0)
[2022-07-16 10:37] LABS: SARS Covid-2 Antigen negative (Negative)
[2022-07-16 10:38] LABS: Influenza A by IFA negative (Negative); Influenza B by IFA negative (Negative)
[2022-07-16 10:42] LABS: Lactic Sepsis W/Reflex 1.5 mmol/L (0.5-2.2)
[2022-07-16 10:54] LABS: D Dimer 2.19 ug/mIFEU (0-0.59)
--- NOTE | 2022-07-16 10:55 | CT_ITS ---
WS: [id number] CTA CHEST WITH CT ABDOMEN AND PELVIS. HISTORY: Short of breath with elevated d-dimer. TECHNIQUE: CT angiogram is performed through the chest. Additional imaging is performed through the a bdomen and pelvis with IV contrast. Sagittal and coronal reformats have been submitted. MIP imaging also reviewed. All CT scans at [facility] use at least one of these dose optimization techniqu es: automated exposure control; mA and/or kV adjustment per patient size (includes targeted exams whe re dose is matched to clinical indication); or iterative reconstruction. Contrast: Omnipaque 350; 100cc IV. DLP: 1766.62 mGy.cm COMPARISON: 12/03/2020 Chest CTA: Very good opacification of the pulmonary arteries. No large central pulmonary emboli. The majority of the segmental branches are with no pulmonary emboli identified. Limited opacification dis tally. Lung volumes are decreased. Small RIGHT pleural effusion. Bilateral lower lobe areas of atelec tasis. No pneumothorax or pneumonia. Mild atherosclerosis aorta. No adenopathy. Mild enlargement of t he RIGHT heart chambers. Abdomen CT: Limited evaluation of the liver. There is artifact through the liver. There is variable e nhancement in the RIGHT lobe. No definite mass. Indeterminate for nodule. Study is limited by breathi ng motion artifact. Gallbladder is normally distended. There is very mild gallbladder wall edema and adjacent inflammation. Normal size spleen. Normal pancreas. No bile duct dilatation. Normal adrenal g lands. No renal obstruction or solid mass. Mild atherosclerosis aorta. Quality of this examination is suboptimal. Breathing motion artifact and also the patient's arms and body habitus. There is a small amount of ascites within the abdomen. Mild mesenteric edema. Nondisten ded stomach. Wall thickening and edema involving the small bowel in the central abdomen. There is wal l thickening and adjacent free fluid. No free air. Normal appendix. Numerous diverticula throughout t he colon but greatest in the descending and sigmoid colon. There is fluid adjacent to the sigmoid col on. No obstructive pattern. Pelvic CT: Well-distended urinary bladder. Small amount of free fluid in the pelvis. Thoracolumbar sc oliosis. CT/CT angio chest w abd pel w con IMPRESSION: 1. Study is suboptimal due to patient motion, size and artifact from the patie nt's arms. 2. No central pulmonary embolism. 3. Small RIGHT pleural effusion with bibasilar atelectasis. 4. Motion artifact involving the visceral organs. Note definite abnormality id entified involving the gallbladder. There is mild haziness but I believe this i s secondary to artifact. 5. Small amount of ascites within the abdomen and pelvis. 6. Edema within a focal small bowel loop in the central abdomen suspicious for enterocolitis. No obstruction. 7. Extensive diverticular disease. There is fluid along the sigmoid colon but no focal acute diverticulitis. 8. No free air is identified but small foci of air may not be visualized with this amount of motion and artifact. 9. Variable enhancement throughout the liver. Heterogeneous liver. Probably du e to motion.
--- NOTE | 2022-07-16 11:03 | PC.PHAR ---
pt is from [facility] [phone] mitchell nurse from [facility] states the pt had no meds today states bs was 217 state they didnt give any insulin-notes are made in the pharmacy comments
[2022-07-16 11:11] LABS: Troponin(5th) Baseline 38 ng/L (0-10)
[2022-07-16 11:26] LABS: ABG PH Result 7.25 (7.35-7.45); Arterial Blood Gas Hematocrit 41.7 % (37-47); Base Excess ABG 2.4 mmol/L (-2.0-2.0); Blood Gas Allen Test Pos; Blood Gas Operator Identificat WALCI; Blood Gas Sample Site Radial, right; Blood Gas Sample Type Arterial; HCO3 ABG 31.8 mmol/L (22-26); Oxygen Device BIPAP; PO2 ABG 82.2 mmHg (80.0-100.0)
[2022-07-16 11:26] LABS: Glucose Point of Care 182 mg/dL (70-110)
[2022-07-16 11:27] LABS: ABG PCO2 72.5 mmHg (35-45)
--- NOTE | 2022-07-16 11:40 | ECG_ITS ---
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 Measurements Intervals [place] Rate: 53 P: 51 GA: 192 QRS: 90 QRSD: 95 T: 47 QT: 433 QTc: 409 Interpretive Statements SINUS BRADYCARDIA WITH OCCASIONAL SUPRAVENTRICULAR PREMATURE COMPLEXES POSSIBLE ANTERIOR MYOCARDIAL INFARCTION , OF INDETERMINATE AGE [30 ms Q WAVE IN V3/V4, OR R < 0.2 mV IN V4] Compared to ECG 07/16/2022 09:50:28 Sinus rhythm no longer present Myocardial infarct finding still present Electronically Signed On 07-17-2022 10:12:22 CHOKER HOOKER by Kasie Keller M.D. [email or web address]/store/[id number]
[2022-07-16 11:46] LABS: Albumin Level 3.6 g/dL (3.5-5.2); Alkaline Phosphatase 86 U/L (35-105); Calcium 8.6 mg/dL (8.5-10.5); Carbon Dioxide 24 mmol/L (22-29); Chloride 99 mmol/L (98-107); Globulin 3.2 g/dL (1.3-4.6); Sodium 139 mmol/L (136-145); Total Bilirubin 0.2 mg/dL (0.15-1.2); Total Protein 6.8 g/dL (6.6-8.7)
[2022-07-16 11:58] LABS: Alanine Aminotransferase 60 U/L (0-33); Anion Gap 21.4 (5-19); Aspartate Amino Transferase 50 U/L (0-32); Blood Urea Nitrogen 58 mg/dL (8-23); Glomerular Filtration Rate 37.4 mL/min (90-130); Glucose 189 mg/dL (65-115); Osmolality Calculated 309 mOsm/kg (285-295)
[2022-07-16 11:59] LABS: NT Pro B Type Natriuretic Pept 13051 pg/mL (0-125)
[2022-07-16 12:00] LABS: Potassium 5.4 mmol/L (3.5-5.1)
[2022-07-16] MEDS: iohexol 350 mg/mL 500 mL Btl (per mL) IV (12:29)
[2022-07-16] MEDS: cefTRIAXone 1,000 MG in sodium chloride 0.9% (plus) 50 ML 100 MG IV (13:02)
[2022-07-16] MEDS: FUROsemide 10 mg/mL SDV 4mL 40 MG IVP ×2 (13:03→19:52)
--- NOTE | 2022-07-16 13:45 | USCV_ITS ---
Fatuma Ching Age: 66 Gender: F : 1955 Exam Date: 07/16/2022 15:46 Ordering Phys: Yoly Soler MD Technologist: Manny Avila [place] [facility] [place]: heart failure, bnp [id number] BP: 136 / 69 HR: 56 Rhythm: Sinus Technical Quality: Adequate MEASUREMENTS (Male / Female) Normal Values 2D ECHO LV Diastolic Diameter PLAX 4.3 cm 4.2 - 5.9 / 3.9 - 5.3 cm LV Systolic Diameter PLAX 2.5 cm IVS Diastolic Thickness 0.9 cm 0.6 - 1.0 / 0.6 - 0.9 cm IVS Systolic Thickness 1.3 cm LVPW Diastolic Thickness 1.3 cm 0.6 - 1.0 / 0.6 - 0.9 cm LVPW Systolic Thickness 1.6 cm LVOT Diameter 2.0 cm LV Ejection Fraction 2D Teich 74.8 % LV Ejection Fraction MOD 2C 69.3 % LV Ejection Fraction 2C AL 67.8 % LA Diameter 3.3 cm LA Width 2.9 cm LA Height 4.6 cm RA Width 3.1 cm RA Height 4.8 cm Aorta at Sinotubular Diameter 2.2 cm IVC Diameter 2.4 cm M-MODE Aortic Annulus Diameter 2.9 cm LA Ao Ratio MM 1.2 MV E Point Septal Separation 0.5 cm DOPPLER MV Peak Velocity 119.0 cm/s MV Area PHT 4.2 cm squared Mitral E to A Ratio 0.7 MV E' Velocity 30.5 cm/s Mitral E to MV E' Ratio 7.9 Mitral E to LV E' Lateral Ratio 7.5 Mitral E to LV E' Septal Ratio 8.3 TR Peak Velocity 413.4 cm/s TR Peak Gradient 68.4 mmHg TR Mean Velocity 330.4 cm/s TR Mean Gradient 46.4 mmHg TR Velocity Time Integral 128.4 cm Right Atrial Pressure 8.0 mmHg Pulmonary Artery Systolic Pressu 76.4 mmHg PV Peak Velocity 79.0 cm/s RV Acceleration Time 0.1 s RV Ejection Time 0.2 s RV AcT/ET 0.4 FINDINGS Left Ventricle Left ventricle is normal in size. LV systolic function is normal with EF 55 to 60%. No regional wall motion abnormalities are seen. Grade 1 diastolic dysfunction Right Ventricle Normal in size and function Right Atrium Normal in size Left Atrium Normal in size Mitral Valve Structurally normal mitral valve. Mild mitral regurgitation. Aortic Valve Structurally normal aortic valve. Doppler exam of aortic valve not performed. Tricuspid Valve Mild tricuspid regurgitation. Insufficient TR jet to evaluate Pulmonic Valve Not well visualized. Trace pulmonic regurgitation. Pericardium Normal Aorta Normal in size IVC Not well visualized CONCLUSIONS LV systolic function is normal with EF 55 to 60%. Grade 1 diastolic dysfunction Mild mitral regurgitation Mild tricuspid regurgitation Trace pulmonic regurgitation Compared to prior echocardiogram from 07/20/2020, no significant changes seen. Feliz Alejandra MD (Electronically Signed) Final Date: 16 July 2022 18:37 S
[2022-07-16] MEDS: doxycycline 100 MG in sodium chloride 0.9% (plus) 100 ML IV (13:54)
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
[2022-07-16 14:16] LABS: Troponin 5 2HR 35.72 ng/L (0-10)
[2022-07-16 14:17] LABS: Troponin 5 2HR Delta -2.28 ABS# (0-10)
[2022-07-16 14:19] LABS: Procalcitonin 0.09 ng/mL (0-0.5)
--- NOTE | 2022-07-16 14:25 | PC.NURSE ---
Dr Soler stated to hold for another 5 hours on the JumpIn.
--- NOTE | 2022-07-16 15:42 | ECG_ITS ---
[facility] Test Date: 2022-07-16 Pat Name: Fatuma Ching Department: Room: Gender: Female Puller Out: : 1955 Requested By: iWlly Pimentel Order Number: [id number] Lr MD: Kasie Keller M.D. Measurements Intervals [place] Rate: 56 P: 50 CO: 200 QRS: 102 QRSD: 97 T: 40 QT: 421 QTc: 408 Interpretive Statements SINUS BRADYCARDIA RIGHT AXIS DEVIATION [QRS AXIS > 100] POSSIBLE ANTERIOR MYOCARDIAL INFARCTION , OF INDETERMINATE AGE [30 ms Q WAVE IN V3/V4, OR R < 0.2 mV IN V4] Compared to ECG 07/16/2022 11:50:52 Right-axis deviation now present Myocardial infarct finding still present Electronically Signed On 07-17-2022 10:10:30 MINIATURE TRAIN DRIVER by Kasie Keller M.D. [email or web address]
[2022-07-16 16:12] LABS: ABG PCO2 75.8 mmHg (35-45); ABG PH Result 7.25 (7.35-7.45); Alveolar-Arterial Oxygen Gradi 9.4 mmHg (5-10); Arterial Blood Gas Hematocrit 42.5 % (37-47); Base Excess ABG 3.7 mmol/L (-2.0-2.0); Blood Gas Allen Test Pos; Blood Gas Operator Identificat WALCI; Blood Gas Sample Site Radial, right; Blood Gas Sample Type Arterial; Carboxyhemoglobin 0.8 %THgb (0.4-20.1); HCO3 ABG 33.4 mmol/L (22-26); HGB O2 Sat 96.7 % (95-100); Ionized Calcium Level - ABG 1.2 mmol/L (1.1-1.4); Methemoglobin 0.6 % (0.4-1.5); Oxygen Device BIPAP; Oxygen Saturation ABG 98.1; Potassium Level - ABG 4.2 mmol/L (3.5-5.0); Total Hemoglobin 13.9 g/dL (12-16)
[2022-07-16 16:31] LABS: Bilirubin Urine Neg (Negative); Blood Urine Neg (Negative); Glucose Urine UA 1+ (Normal); Ketones Urine Negative (Negative); Nitrate Urine Negative (Negative); Protein Urine Neg (Negative); Specific Gravity, Urine 1.015 (1.005-1.030); Urine Appearance Hazy (CLEAR); Urine Color Yellow (Yellow); pH Urine 5 (5-7)
[2022-07-16 16:32] LABS: Leukocyte Esterase Urine Negative (Negative); Urobilinogen Urine Neg (Negative)
[2022-07-16] MEDS: piperacillin-tazobactam 3.375 GM in sodium chloride 0.9% (plus) 50 ML IV (16:33)
[2022-07-16] MEDS: heparin 5,000 unit/mL INJ 1 mL 5000 UNIT SUBCUT (16:34)
[2022-07-16] MEDS: perflutren protein-a microsphr 0.22 mg/mL SDV 3 mL IV (16:44)
[2022-07-16 16:50] LABS: Add Urine Culture? No; Bacteria Urine 1+ /hpf; RBC Urine RARE /hpf (0-2); Squamous Epithelial Cell Urine 0-4 /hpf (0-5)
[2022-07-16 17:13] LABS: Blood Urea Nitrogen 55 mg/dL (8-23); Calcium 8.5 mg/dL (8.5-10.5); Carbon Dioxide 35 mmol/L (22-29); Chloride 102 mmol/L (98-107); Glomerular Filtration Rate 44.7 mL/min (90-130); Glucose 109 mg/dL (65-115); Osmolality Calculated 310 mOsm/kg (285-295); Sodium 142 mmol/L (136-145)
[2022-07-16 17:16] LABS: Anion Gap 9.3 (5-19); Potassium 4.3 mmol/L (3.5-5.1)
[2022-07-16 17:17] LABS: Troponin 5 6HR 35.62 ng/L (0-10)
[2022-07-16 17:18] LABS: Troponin 5 6HR Delta -2.38 ng/L (0-12)
[2022-07-16 19:19] LABS: Glucose Point of Care 84 mg/dL (70-110)
--- NOTE | 2022-07-16 19:24 | PC.NURSE ---
Pts sister, Linh, stated if something was to happen tonight, she'd like to use [facility] in [place], [place]
[2022-07-16] MEDS: atorvastatin 40 mg Tablet 80 MG PO (21:19)
[2022-07-16] MEDS: sertraline 50 mg Tablet 25 MG PO (21:19)
[2022-07-16] MEDS: zolpidem 5 mg Tablet PO (21:19)
[2022-07-16] MEDS: oxyCODONE-APAP 5-325 mg Tablet 1 TAB PO (21:20)
[2022-07-16] MEDS: pregabalin 100 mg Capsule PO (21:21)
[2022-07-16] MEDS: topiramate 100 mg Tablet PO (21:21)
[2022-07-16] MEDS: insulin glargine 100 units/1 mL 60 UNIT SUBCUT (22:24)
[2022-07-16 22:25] LABS: Glucose Point of Care 88 mg/dL (70-110)
[2022-07-17] VITALS (47 sets, daily range): BP systolic 106–177; BP diastolic 56–97; PULSE 53–78; RESP 13–35; TEMP 36.9–37.6; O2SAT 89–97
[2022-07-17] MEDS: piperacillin-tazobactam 3.375 GM in sodium chloride 0.9% (plus) 50 ML IV ×4 (00:43→23:09)
[2022-07-17] MEDS: heparin 5,000 unit/mL INJ 1 mL 5000 UNIT SUBCUT ×2 (04:00→15:53)
[2022-07-17 04:04] LABS: Basophils % 0.2 %; Eosinophils # 0.1 10^3/uL (0.0-0.8); Eosinophils % 0.4 %; Hematocrit 44.2 % (37.0-47.0); Hemoglobin 12.7 g/dL (11.5-15.3); Lymphocytes # 2.2 10^3/uL (0.8-4.8); Mean Corpuscular HGB Conc 28.7 g/dL (30.0-36.0); Mean Corpuscular Hemoglobin 25.7 pg (28.0-34.0); Mean Corpuscular Volume 89.3 fl (81-99); Mean Platelet Volume 10.4 fL (7.4-10.4); Monocytes # 1.8 10^3/uL (0.2-0.9); Neutrophils # 9.74 10^3/uL (1.8-7.7); Neutrophils % 69.8 %; Nucleated Red Blood Cells % 0.1 %; Platelet Count 278 10^3/cmm (130-400); Red Blood Count 4.95 10^6/uL (4.1-5.3); Red Cell Distribution Width 16.3 % (12.1-15.1)
[2022-07-17 04:18] LABS: Blood Urea Nitrogen 54 mg/dL (8-23); Calcium 8.4 mg/dL (8.5-10.5); Carbon Dioxide 34 mmol/L (22-29); Chloride 101 mmol/L (98-107); Glomerular Filtration Rate 55.1 mL/min (90-130); Glucose 43 mg/dL (65-115); Magnesium 2.3 mg/dL (1.7-2.3); Osmolality Calculated 310 mOsm/kg (285-295); Sodium 144 mmol/L (136-145)
[2022-07-17 05:07] LABS: ABG PH Result 7.28 (7.35-7.45); Alveolar-Arterial Oxygen Gradi 9.8 mmHg (5-10); Arterial Blood Gas Hematocrit 39.2 % (37-47); Base Excess ABG 6.9 mmol/L (-2.0-2.0); Blood Gas Allen Test Pos; Blood Gas Operator Identificat JB; Blood Gas Sample Site Radial, right; Blood Gas Sample Type Arterial; Blood Gas Tidal Volume 0.45; Carboxyhemoglobin 0.7 %THgb (0.4-20.1); HCO3 ABG 36.4 mmol/L (22-26); HGB O2 Sat 92.3 % (95-100); Ionized Calcium Level - ABG 1.2 mmol/L (1.1-1.4); Methemoglobin 0.9 % (0.4-1.5); Oxygen Device BIPAP; Oxygen Saturation ABG 93.8; PO2 ABG 78.5 mmHg (80.0-100.0); Potassium Level - ABG 3.8 mmol/L (3.5-5.0); Total Hemoglobin 12.8 g/dL (12-16)
[2022-07-17 05:16] LABS: Glucose Point of Care 45 mg/dL (70-110)
[2022-07-17] MEDS: pantoprazole DR 40 mg Tablet PO (06:26)
[2022-07-17] MEDS: FUROsemide 10 mg/mL SDV 4mL 40 MG IVP ×2 (06:26→17:56)
[2022-07-17] MEDS: aspirin 81 mg EC Tablet PO (06:26)
[2022-07-17] MEDS: polyethylene glycol 3350 Pkt 17 gm PO (06:26)
[2022-07-17 06:38] LABS: Glucose Point of Care 94 mg/dL (70-110)
[2022-07-17 07:07] LABS: Glucose Point of Care 79 mg/dL (70-110)
--- NOTE | 2022-07-17 07:42 | P.PN_ITS ---
Subjective Subjective: seen this am patient awake and able to answer some questions still on bipap she is quite confused however gas this AM 7./75 2300 urine output since admission Vitals/I&O/Wt Last Vital Signs Temp 98.4 F 07/17/22 07:30 Pulse 67 07/17/22 07:30 Resp 25 H 07/17/22 07:30 BP 177/97 07/17/22 07:30 Pulse Ox 94 07/17/22 07:30 O2 Del Method 07/17/22 07:30 FiO2 35 07/17/22 07:30 07/16/22 07/17/22 07/17/22 22:59 06:59 14:59 Intake Total 150 / 200 210 / 410 Output Total 2300 / 2300 Balance 150 / 200 -2090 / -1890 Weight last 48 hrs Weight 115.468 kg Weight 115.076 kg Weight 123.377 kg Physical Exam Narrative: General:Alert, oriented to self, on bipap at this time. able to answer some questions HEENT: Normocephalic, atraumatic, EOMI, breathing on BiPAP Cardio: Regular rate rhythm, normal s1, s2 Respiratory: mild Crackles b/l still present at bases., no wheezes, coarse breath sounds. GI: Abdomen soft, nontender, nondistended, bowel sounds + Extremities: 1+ pitting edema bilateral lower extremities Urinary Catheter Management: Nava: Cath Placed During This Visit: yes Reason for Continuing Indwelling Catheter: Accurate Measurement of Urinary Output in Critically Ill Patients Urinary Catheter Date of Insertion: 07/16/22 Urinary Catheter Time of Insertion: 13:14 Data 07/17/22 02:50 07/17/22 02:50 Micro: Microbiology 07/16/22 10:48 Blood Culture - Preliminary Blood SPECIMEN COLLECTED 07/16/22 10:50 Blood Culture - Preliminary Blood SPECIMEN COLLECTED A&P Assessment and plan (1) Acute exacerbation of congestive heart failure: (2) Acute respiratory failure with hypoxia and hypercapnia: (3) RHONDA (acute kidney injury): (4) Transaminitis: (5) Diabetic peripheral neuropathy associated with type 2 diabetes mellitus: (6) Diastolic CHF: (7) Type 2 diabetes mellitus: Qualifiers: Diabetes mellitus felled seam operator insulin use: with [facility] use Diabetes mellitus complication status: with hyperglycemia Qualified Code(s): E11.65 - Type 2 diabetes mellitus with hyperglycemia; Z79.4 - sprayer operator (current) use of insulin Plan #Acute hypercarbic respiratory failure requiring BiPAP #Acute on chronic diastolic CHF #Flash pulmonary edema #RHONDA on CKD #Elevated liver enzymes #Possible pneumonia versus enterocolitis #Leukocytosis secondary to stress response versus true infection #High anion gap metabolic acidosis possibly secondary to renal dysfunction ? We will do a sepsis work-up ? Check blood cultures, urine culture, sputum culture gram stain ? Lasix 40 IV daily ? Nava catheter for accurate output ? Echo 07/16/22 shows normal EF 55-60 and grade 1 diastolic dysfunction ? Delta troponin negative ?Underlying sleep apnea?? ? Continue moderate intensity sliding scale insulin ? Continue aspirin atorvastatin, ? Hold hydrochlorothiazide at this time. Hold lisinopril due to RHONDA ? COVID and flu are negative ? Potassium 4.0, normalized ? Continue to diurese patient ? Continue on AVAPS - Continue empiric abx zosyn - May start lantus to 30 BID. Home dose is 60 BID. Patient is NPO. For now, will hold. - Urine output 2300 CC. - Switch to lasix 40 daily - check hepatitis profile - Creatinine improved DNR/DNI. There is prison paperwork stating that patient is a DNR. Patient signed this document herself last year in October. Also discussed with her [id number] Linh coreas over the phone who stated that she would like to respect the patient's wishes at this time. She says she is her only living relative at this time. There is a daughter as well who is in correction however. He does not know which correction and does not have her contact information. Attestations Medical Necessity Statement*: Continue ICU monitoring. Continue AVAPS Critical Care Time: The high probability of a clinically significant, sudden or life threatening deterioration of the patient's [] system(s) required my full and direct attention, intervention and personal management. The critical care time is as shown. This time is in addition to time spent performing any reported procedures but includes the following: [x] Data and vital sign review and interpretation [x] Patient assessment, examination and intervention [x] Documentation [x] Medication orders and management Critical Care Time (min): 35 Coding Level of Care Code Acute Code for Chg Fwd Diagnoses Acute exacerbation of congestive heart failure I50.9 Acute respiratory failure with hypoxia and hypercapnia J96.01; J96.02 RHONDA (acute kidney injury) N17.9 Transaminitis R74.01 Diabetic peripheral neuropathy associated with type 2 diabetes mellitus E11.42 Diastolic CHF I50.30 Type 2 diabetes mellitus E11.65; Z79.4 Diabetes mellitus [facility] insulin use: with felled seam operator use Diabetes mellitus complication status: with hyperglycemia
[2022-07-17] MEDS: ipratropium-albuterol 3 mL Neb INHALATION ×4 (08:11→21:02)
[2022-07-17 08:29] LABS: ABG PCO2 77.5 mmHg (35-45)
[2022-07-17] MEDS: pregabalin 100 mg Capsule PO ×3 (09:51→20:22)
[2022-07-17] MEDS: pantoprazole 40 mg SDV IVP (09:51)
[2022-07-17 11:43] LABS: Glucose Point of Care 48 mg/dL (70-110)
[2022-07-17 12:12] LABS: Glucose Point of Care 88 mg/dL (70-110)
[2022-07-17 13:25] LABS: ABG PH Result 7.35 (7.35-7.45); Alveolar-Arterial Oxygen Gradi 12.5 mmHg (5-10); Arterial Blood Gas Hematocrit 41.9 % (37-47); Base Excess ABG 8.6 mmol/L (-2.0-2.0); Blood Gas Allen Test Pos; Blood Gas Operator Identificat CAK; Blood Gas Sample Site Radial, left; Blood Gas Sample Type Arterial; Carboxyhemoglobin 0.8 %THgb (0.4-20.1); HCO3 ABG 36.9 mmol/L (22-26); HGB O2 Sat 92.7 % (95-100); Ionized Calcium Level - ABG 1.1 mmol/L (1.1-1.4); Methemoglobin 0.6 % (0.4-1.5); Oxygen Device NC; PO2 ABG 78.2 mmHg (80.0-100.0); Potassium Level - ABG 3.8 mmol/L (3.5-5.0); Total Hemoglobin 13.7 g/dL (12-16)
[2022-07-17 16:13] LABS: ABG PCO2 67.1 mmHg (35-45)
[2022-07-17 16:58] LABS: Hepatitis A Antibody IgM Non-Reactive (Nonreactive); Hepatitis B Core AB, Total Non-Reactive (Nonreactive); Hepatitis B Surface Antigen Non-Reactive (Nonreactive); Hepatitis C Virus Antibody Non-Reactive (Nonreactive)
[2022-07-17 17:26] LABS: Glucose Point of Care 139 mg/dL (70-110)
[2022-07-17] MEDS: zolpidem 5 mg Tablet PO (20:22)
[2022-07-17] MEDS: topiramate 100 mg Tablet PO (20:23)
[2022-07-17] MEDS: atorvastatin 40 mg Tablet 80 MG PO (20:23)
[2022-07-17] MEDS: sertraline 50 mg Tablet 25 MG PO (20:23)
[2022-07-17] MEDS: insulin lispro 100 unit/1 mL SUBCUT (20:26)
[2022-07-17 20:32] LABS: Glucose Point of Care 154 mg/dL (70-110)
[2022-07-17 22:42] LABS: Hepatitis B Surface AB 3.5 (11.5-1000)
[2022-07-18] VITALS (30 sets, daily range): BP systolic 106–159; BP diastolic 53–88; PULSE 59–78; RESP 15–30; TEMP 36.3–37.8; O2SAT 91–98; BMI 42.0
[2022-07-18] MEDS: heparin 5,000 unit/mL INJ 1 mL 5000 UNIT SUBCUT ×2 (02:53→16:06)
[2022-07-18 03:18] LABS: Basophils # 0.1 10^3/uL (0.0-0.1); Basophils % 0.5 %; Eosinophils # 0.1 10^3/uL (0.0-0.8); Eosinophils % 0.8 %; Hematocrit 42.7 % (37.0-47.0); Hemoglobin 12.4 g/dL (11.5-15.3); Lymphocytes % 18.1 %; Mean Corpuscular Hemoglobin 25.7 pg (28.0-34.0); Mean Corpuscular Volume 88.4 fl (81-99); Mean Platelet Volume 10.2 fL (7.4-10.4); Monocytes # 1.3 10^3/uL (0.2-0.9); Monocytes % 12.4 %; Neutrophils # 7.34 10^3/uL (1.8-7.7); Neutrophils % 67.8 %; Nucleated Red Blood Cells % 0 %; Platelet Count 226 10^3/cmm (130-400); Red Blood Count 4.83 10^6/uL (4.1-5.3); Red Cell Distribution Width 16.1 % (12.1-15.1); White Blood Count 10.8 10^3/uL (4.0-10.0)
[2022-07-18 03:40] LABS: Alanine Aminotransferase 41 U/L (0-33); Albumin Level 3.5 g/dL (3.5-5.2); Alkaline Phosphatase 78 U/L (35-105); Anion Gap 11.5 (5-19); Aspartate Amino Transferase 40 U/L (0-32); Blood Urea Nitrogen 42 mg/dL (8-23); Calcium 8.6 mg/dL (8.5-10.5); Carbon Dioxide 36 mmol/L (22-29); Chloride 101 mmol/L (98-107); Globulin 3.1 g/dL (1.3-4.6); Glomerular Filtration Rate 62.3 mL/min (90-130); Glucose 75 mg/dL (65-115); Magnesium 2.2 mg/dL (1.7-2.3); Osmolality Calculated 309 mOsm/kg (285-295); Potassium 3.5 mmol/L (3.5-5.1); Sodium 145 mmol/L (136-145); Total Bilirubin 0.3 mg/dL (0.15-1.2); Total Protein 6.6 g/dL (6.6-8.7)
[2022-07-18 03:55] LABS: Glucose Point of Care 82 mg/dL (70-110)
[2022-07-18 04:50] LABS: ABG PCO2 59.8 mmHg (35-45); ABG PH Result 7.43 (7.35-7.45); Base Excess ABG 12.2 mmol/L (-2.0-2.0); Blood Gas Allen Test Pos; Blood Gas Sample Site Brachial, left; Blood Gas Sample Type Arterial; Carboxyhemoglobin 0.6 %THgb (0.4-20.1); HCO3 ABG 39.3 mmol/L (22-26); HGB O2 Sat 93.9 % (95-100); Ionized Calcium Level - ABG 1.2 mmol/L (1.1-1.4); Methemoglobin 0.5 % (0.4-1.5); PO2 ABG 79.1 mmHg (80.0-100.0); Potassium Level - ABG 3.4 mmol/L (3.5-5.0); Total Hemoglobin 14.4 g/dL (12-16)
[2022-07-18 04:53] LABS: Alveolar-Arterial Oxygen Gradi 12.9 mmHg (5-10); Oxygen Device BIPAP
[2022-07-18] MEDS: FUROsemide 10 mg/mL SDV 4mL 40 MG IVP (06:16)
[2022-07-18 06:22] LABS: Glucose Point of Care 130 mg/dL (70-110)
[2022-07-18 07:27] LABS: Glucose Point of Care 113 mg/dL (70-110)
[2022-07-18] MEDS: ipratropium-albuterol 3 mL Neb INHALATION ×4 (07:46→19:49)
[2022-07-18] MEDS: pantoprazole 40 mg SDV IVP (09:11)
[2022-07-18] MEDS: pantoprazole DR 40 mg Tablet PO (09:13)
[2022-07-18] MEDS: pregabalin 100 mg Capsule PO ×3 (09:13→20:27)
[2022-07-18] MEDS: aspirin 81 mg EC Tablet PO (09:13)
[2022-07-18] MEDS: polyethylene glycol 3350 Pkt 17 gm PO (09:13)
[2022-07-18] MEDS: piperacillin-tazobactam 3.375 GM in sodium chloride 0.9% (plus) 50 ML IV ×3 (09:13→23:31)
--- NOTE | 2022-07-18 09:55 | XRR_ITS ---
PROCEDURE INFORMATION: Exam: XR Abdomen Exam date and time: 07/18/2022 10:01 AM Age: 66 years old Clinical indication: Abdominal pain; Generalized; Additional info: Abdominal distention TECHNIQUE: Imaging protocol: Radiologic exam of the abdomen. Views: Frontal supine view of the abdomen. 1 View. COMPARISON: CT angio chest w abd pel w con 07/16/2022 12:19 PM FINDINGS: Gastrointestinal tract: There is moderate gaseous distention of the stomach developed from previous exam. Remainder of the bowel gas pattern is unremarkable. Bones/joints: Unremarkable. Other findings: No suspicous calcifications. XR/XR KUB portable [id number] IMPRESSION: Gaseous distention of the stomach otherwise unremarkable bowel gas pattern.
--- NOTE | 2022-07-18 10:36 | PC.CHAP ---
Pastoral Care Encounter/Spiritual Assessment Type of Contact [] Declined oracle application architect visit [] Patient/Family/Request visit [] Outpatient visit [] Follow-up visit [] Physician referral [] Code/Alert [x] Routine visit [] Staff referral [] Actively dying [x] Patient sleeping [] Family support [] [] Out of room [] Palliative care [] [] Receiving care in room [] Pre-surgical visit [] Trauma [] Long length of stay [x] ICU visit [] Other: Relational/Emotional Strength [] Patient feels connected with others/family/visitors/staff [] Distress [] Loneliness/isolation [] Abandonment Spirituality of Patient [] Person of Viri [] Attends Shinto of their Viri [] Believes in Prayer [] Reads Bible or Evangelical materials [] There are Spiritual issues to be addressed Labor Utilization Superintendent Interventions [x] Prayer [] Active listening [] Non-anxious presence [] Spiritual/emotional support [] Crisis/trauma care [] Spiritual counseling [] Bereavement support [] Provided bereavement packet [] Provided Bible/devotional materials [] Provided toy/stuffed animal, coloring book to patient or family member [] Provided Communion [] Anointing/[place] [] Salvation [x] Completed spiritual assessment [] Other: Impact on Illness or Injury [] Angry [] Fearful [] Anxious [] Often cries [] Exhaustion [] Unable to work [] Unable to attend christianity [] Unable to walk/stand [] Unable to read [] Unable to drive [] Unable to eat/drink [] Unable to sleep [] Unable to be with family [] Patient intubated [] Other: Summary Time spent with patient
[2022-07-18 11:38] LABS: Glucose Point of Care 197 mg/dL (70-110)
[2022-07-18] MEDS: insulin lispro 100 unit/1 mL SUBCUT ×3 (12:21→22:29)
[2022-07-18 17:28] LABS: Glucose Point of Care 181 mg/dL (70-110)
--- NOTE | 2022-07-18 18:01 | P.PN_ITS ---
Subjective Subjective: seen this am patient alert oriented to self says she is doing well confused Vitals/I&O/Wt Last Vital Signs Temp 100.1 F H 07/18/22 06:00 Pulse 69 07/18/22 16:00 Resp 24 H 07/18/22 16:00 BP 139/59 07/18/22 16:00 Pulse Ox 94 07/18/22 16:00 O2 Del Method 07/18/22 16:00 O2 Flow Rate 3 07/18/22 16:00 FiO2 35 07/18/22 07:48 07/18/22 07/18/22 07/18/22 06:59 14:59 22:59 Intake Total 100 / 680 510 / 510 240 / 750 Output Total 550 / 3200 1000 / 1000 400 / 1400 Balance -450 / -2520 -490 / -490 -160 / -650 Weight last 48 hrs Weight 111.266 kg Weight 115.468 kg Weight 115.076 kg Physical Exam Narrative: General:Alert, oriented to self only, on 3L NC HEENT: Normocephalic, atraumatic, EOMI, Cardio: Regular rate rhythm, normal s1, s2 Respiratory: mild ronchi b/l still present at bases. GI: Abdomen soft, nontender, distended abdomen, bowel sounds + Extremities: 1+ pitting edema bilateral lower extremities Urinary Catheter Management: Nava: Cath Placed During This Visit: yes Reason for Continuing Indwelling Catheter: Accurate Measurement of Urinary Output in Critically Ill Patients Urinary Catheter Date of Insertion: 07/16/22 Urinary Catheter Time of Insertion: 13:14 Data 07/18/22 02:57 07/18/22 02:57 Micro: Microbiology 07/16/22 13:52 Urine Culture - Preliminary Urine Catheterized Gram Negative Rods A&P Assessment and plan (1) Acute exacerbation of congestive heart failure: (2) Acute respiratory failure with hypoxia and hypercapnia: (3) RHONDA (acute kidney injury): (4) Transaminitis: (5) Diabetic peripheral neuropathy associated with type 2 diabetes mellitus: (6) Diastolic CHF: (7) Type 2 diabetes mellitus: Qualifiers: Diabetes mellitus filler leaf cutter long insulin use: with filler leaf cutter long use Diabetes mellitus complication status: with hyperglycemia Qualified Code(s): E11.65 - Type 2 diabetes mellitus with hyperglycemia; 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 We will do a sepsis work-up ? Check blood cultures, urine culture, sputum culture gram stain ? Lasix 40 IV daily ? Nava catheter for accurate output ? Echo 07/16/22 shows normal EF 55-60 and grade 1 diastolic dysfunction ? Delta troponin negative ?Underlying sleep apnea?? ? Continue moderate intensity sliding scale insulin ? Continue aspirin atorvastatin, ? Hold hydrochlorothiazide at this time. Hold lisinopril due to RHONDA ? COVID and flu are negative ? Potassium 4.0, normalized ? Continue to diurese patient - Continue empiric abx zosyn - May start lantus to 30 BID. Home dose is 60 BID. Patient is NPO. For now, will hold. - Urine output 3700 CC overnight - Switch to lasix 40 daily - check hepatitis profile - Creatinine improved - KUB checked. stomach filled with air DNR/DNI. There is shelter paperwork stating that patient is a DNR. Patient signed this document herself last year in October. Also discussed with her [id number] Linh coreas over the phone who stated that she would like to respect the patient's wishes at this time. She says she is her only living relative at this time. There is a daughter as well who is in penitentiary however. He does not know which penitentiary and does not have her contact information. Attestations Medical Necessity Statement*: Transfer to floor. Patient is still confused. Continue medical management Coding Level of Care Code Acute Code for Chg Fwd Diagnoses Acute exacerbation of congestive heart failure I50.9 Acute respiratory failure with hypoxia and hypercapnia J96.01; J96.02 RHONDA (acute kidney injury) N17.9 Transaminitis R74.01 Diabetic peripheral neuropathy associated with type 2 diabetes mellitus E11.42 Diastolic CHF I50.30 Type 2 diabetes mellitus E11.65; Z79.4 Diabetes mellitus shelter insulin use: with shelter use Diabetes mellitus complication status: with hyperglycemia
--- NOTE | 2022-07-18 18:23 | PC.NURSE ---
Report called to SHABNAM Paul. Patient and belongings taking to room 253-1 by Gavino.
[2022-07-18] MEDS: topiramate 100 mg Tablet PO (20:25)
[2022-07-18] MEDS: atorvastatin 40 mg Tablet 80 MG PO (20:25)
[2022-07-18] MEDS: zolpidem 5 mg Tablet PO (20:25)
[2022-07-18] MEDS: sertraline 50 mg Tablet 25 MG PO (20:25)
[2022-07-18 22:13] LABS: Glucose Point of Care 184 mg/dL (70-110)
[2022-07-19] VITALS (16 sets, daily range): BP systolic 136–169; BP diastolic 63–80; PULSE 69–87; RESP 15–20; TEMP 36.4–36.9; O2SAT 90–97
[2022-07-19] MEDS: heparin 5,000 unit/mL INJ 1 mL 5000 UNIT SUBCUT ×2 (03:05→15:42)
[2022-07-19 03:37] LABS: Basophils # 0.1 10^3/uL (0.0-0.1); Basophils % 0.4 %; Eosinophils # 0.1 10^3/uL (0.0-0.8); Hematocrit 44.7 % (37.0-47.0); Hemoglobin 13.2 g/dL (11.5-15.3); Lymphocytes # 1.7 10^3/uL (0.8-4.8); Lymphocytes % 13.6 %; Mean Corpuscular HGB Conc 29.5 g/dL (30.0-36.0); Mean Corpuscular Hemoglobin 25.7 pg (28.0-34.0); Mean Platelet Volume 10.4 fL (7.4-10.4); Monocytes # 1.7 10^3/uL (0.2-0.9); Monocytes % 13.2 %; Neutrophils # 9.01 10^3/uL (1.8-7.7); Neutrophils % 71.4 %; Nucleated Red Blood Cells % 0 %; Platelet Count 222 10^3/cmm (130-400); Red Blood Count 5.14 10^6/uL (4.1-5.3); Red Cell Distribution Width 15.9 % (12.1-15.1); White Blood Count 12.6 10^3/uL (4.0-10.0)
[2022-07-19 04:03] LABS: Anion Gap 12.5 (5-19); Blood Urea Nitrogen 31 mg/dL (8-23); Calcium 8.8 mg/dL (8.5-10.5); Carbon Dioxide 34 mmol/L (22-29); Chloride 100 mmol/L (98-107); Glomerular Filtration Rate 83.2 mL/min (90-130); Glucose 102 mg/dL (65-115); Magnesium 2.2 mg/dL (1.7-2.3); Osmolality Calculated 303 mOsm/kg (285-295); Potassium 3.5 mmol/L (3.5-5.1); Sodium 143 mmol/L (136-145)
[2022-07-19] MEDS: oxyCODONE-APAP 5-325 mg Tablet 1 TAB PO (04:31)
[2022-07-19] MEDS: aspirin 81 mg EC Tablet PO (05:21)
[2022-07-19] MEDS: polyethylene glycol 3350 Pkt 17 gm PO (05:21)
[2022-07-19] MEDS: pantoprazole DR 40 mg Tablet PO (05:21)
[2022-07-19 06:31] LABS: Glucose Point of Care 140 mg/dL (70-110)
[2022-07-19] MEDS: ipratropium-albuterol 3 mL Neb INHALATION ×4 (07:44→19:19)
--- NOTE | 2022-07-19 08:00 | XRR_ITS ---
PROCEDURE INFORMATION: Exam: XR Chest Exam date and time: 07/19/2022 5:02 AM Age: 66 years old Clinical indication: Cardiovascular condition or disease; Congestive heart failure (chf); Cause unknown; Additional info: Follow up chf TECHNIQUE: Imaging protocol: Radiologic exam of the chest. Views: 1 view. COMPARISON: CR XR chest 1V portable [id number] 07/16/2022 10:14 AM FINDINGS: Lungs: Low lung volumes. There is increased interstitial markings and haziness of the lungs, which in the setting of cardiomegaly is consistent with pulmonary congestion. Pneumonia should be excluded clinically. Pleural spaces: Unremarkable. No pleural effusion. No pneumothorax. Heart/Mediastinum: Stable cardiomediastinal silhouette. Bones/joints: Unremarkable. XR/XR chest 1V portable [id number] IMPRESSION: Imaging findings suggestive of pulmonary congestion. Pneumonia should be excluded clinically.
[2022-07-19] MEDS: piperacillin-tazobactam 3.375 GM in sodium chloride 0.9% (plus) 50 ML IV ×2 (09:05→15:29)
[2022-07-19] MEDS: pantoprazole 40 mg SDV IVP (09:06)
[2022-07-19] MEDS: pregabalin 100 mg Capsule PO ×3 (09:06→21:43)
[2022-07-19] MEDS: insulin lispro 100 unit/1 mL SUBCUT ×3 (12:21→21:48)
--- NOTE | 2022-07-19 13:08 | PC.SOCIAL ---
Pg 2 IMM Explained to pt Pg 2 IMM. No questions voiced. Provided pt a copy. Initialed, dated, & timed a copy & placed in chart.
[2022-07-19 13:40] LABS: Glucose Point of Care 220 mg/dL (70-110)
--- NOTE | 2022-07-19 14:21 | P.PN_ITS ---
Subjective Subjective: seen this am pt says she feels better and even worked with PT Seen when eating her lunch Vitals/I&O/Wt Last Vital Signs Temp 98.5 F 07/19/22 12:00 Pulse 69 07/19/22 12:20 Resp 17 07/19/22 12:20 BP 139/80 07/19/22 12:00 Pulse Ox 93 07/19/22 12:00 O2 Del Method 07/19/22 12:00 O2 Flow Rate 2 07/19/22 12:00 FiO2 35 07/18/22 23:14 07/18/22 07/19/22 07/19/22 22:59 06:59 14:59 Intake Total 290 / 800 530 / 1330 600 / 600 Output Total 400 / 1400 1000 / 1000 Balance -110 / -600 530 / -70 -400 / -400 Weight last 48 hrs Weight 123.094 kg Weight 111.266 kg Physical Exam Narrative: General:Alert, oriented x3 on 3L NC HEENT: Normocephalic, atraumatic, EOMI, Cardio: Regular rate rhythm, normal s1, s2 Respiratory: cta b/l, mild ronchi at bases GI: Abdomen soft, nontender, distended abdomen, bowel sounds + Extremities: 1+ pitting edema bilateral lower extremities Urinary Catheter Management: [place]: Cath Placed During This Visit: yes Reason for Continuing Indwelling Catheter: Accurate Measurement of Urinary Output in Critically Ill Patients Urinary Catheter Date of Insertion: 07/16/22 Urinary Catheter Time of Insertion: 13:14 Data 07/19/22 02:21 07/19/22 02:21 Micro: Microbiology 07/16/22 13:52 Urine Culture - Preliminary Urine Catheterized Gram Negative Rods A&P Assessment and plan (1) Acute exacerbation of congestive heart failure: (2) Acute respiratory failure with hypoxia and hypercapnia: (3) RHONDA (acute kidney injury): (4) Transaminitis: (5) Diabetic peripheral neuropathy associated with type 2 diabetes mellitus: (6) Diastolic CHF: (7) Type 2 diabetes mellitus: Qualifiers: Diabetes mellitus residential insulin use: with residential use Diabetes mellitus complication status: with hyperglycemia Qualified Code(s): E11.65 - Type 2 diabetes mellitus with hyperglycemia; Z79.4 - shelter (current) use of insulin Plan #Acute hypercarbic respiratory failure requiring BiPAP - resolved #Acute on chronic diastolic CHF #Flash pulmonary edema - improved #RHONDA on CKD #Elevated liver enzymes #Possible pneumonia versus enterocolitis #Leukocytosis secondary to stress response versus true infection #High anion gap metabolic acidosis possibly secondary to renal dysfunction ? BCx NTD, UCx growing gm negative rods ? Lasix 40 IV daily ?Remove [place] today ? Echo 07/16/22 shows normal EF 55-60 and grade 1 diastolic dysfunction ? Delta troponin negative ? Continue moderate intensity sliding scale insulin ? Continue aspirin atorvastatin, ? Hold hydrochlorothiazide at this time. Hold lisinopril due to RHONDA ? COVID and flu are negative ? Continue to diurese patient - Continue empiric abx zosyn - May start lantus to 30 BID. Home dose is 60 BID. Patient is NPO. For now, will hold. - Urine output 3700 CC overnight - Hep profile complete - Creatinine improved - PT eval states SNF vs [facility] - Potential dc in AM -Will diurese further today and prep for dc in AM DNR/DNI Attestations Medical Necessity Statement*: IV diuresis today. Plan for Dc in Am Coding Level of Care Code Acute Code for Chg Fwd Diagnoses Acute exacerbation of congestive heart failure I50.9 Acute respiratory failure with hypoxia and hypercapnia J96.01; J96.02 RHONDA (acute kidney injury) N17.9 Transaminitis R74.01 Diabetic peripheral neuropathy associated with type 2 diabetes mellitus E11.42 Diastolic CHF I50.30 Type 2 diabetes mellitus E11.65; Z79.4 Diabetes mellitus residential insulin use: with long term care social worker use Diabetes mellitus complication status: with hyperglycemia
[2022-07-19 17:33] LABS: Glucose Point of Care 215 mg/dL (70-110)
[2022-07-19] MEDS: FUROsemide 10 mg/mL SDV 4mL 40 MG IVP (19:35)
[2022-07-19 21:31] LABS: Glucose Point of Care 200 mg/dL (70-110)
[2022-07-19] MEDS: atorvastatin 40 mg Tablet 80 MG PO (21:46)
[2022-07-19] MEDS: topiramate 100 mg Tablet PO (21:47)
[2022-07-19] MEDS: sertraline 50 mg Tablet 25 MG PO (21:47)
[2022-07-19] MEDS: zolpidem 5 mg Tablet PO (21:47)
[2022-07-20] VITALS (14 sets, daily range): BP systolic 116–155; BP diastolic 56–76; PULSE 65–77; RESP 16–21; TEMP 36.8–37.2; O2SAT 85–97
[2022-07-20] MEDS: piperacillin-tazobactam 3.375 GM in sodium chloride 0.9% (plus) 50 ML IV ×4 (00:43→23:58)
[2022-07-20] MEDS: heparin 5,000 unit/mL INJ 1 mL 5000 UNIT SUBCUT ×2 (02:40→14:21)
[2022-07-20 04:00] LABS: Basophils % 0.4 %; Eosinophils # 0.1 10^3/uL (0.0-0.8); Eosinophils % 1.2 %; Hematocrit 44.5 % (37.0-47.0); Hemoglobin 13.2 g/dL (11.5-15.3); Lymphocytes # 1.6 10^3/uL (0.8-4.8); Mean Corpuscular HGB Conc 29.7 g/dL (30.0-36.0); Mean Corpuscular Hemoglobin 25.3 pg (28.0-34.0); Mean Corpuscular Volume 85.2 fl (81-99); Mean Platelet Volume 10.3 fL (7.4-10.4); Monocytes # 1.2 10^3/uL (0.2-0.9); Monocytes % 10.2 %; Neutrophils # 8.32 10^3/uL (1.8-7.7); Nucleated Red Blood Cells % 0 %; Platelet Count 211 10^3/cmm (130-400); Red Blood Count 5.22 10^6/uL (4.1-5.3); Red Cell Distribution Width 15.6 % (12.1-15.1); White Blood Count 11.2 10^3/uL (4.0-10.0)
[2022-07-20 04:18] LABS: Anion Gap 14.6 (5-19); Blood Urea Nitrogen 21 mg/dL (8-23); Calcium 8.8 mg/dL (8.5-10.5); Carbon Dioxide 30 mmol/L (22-29); Chloride 99 mmol/L (98-107); Glomerular Filtration Rate 83.2 mL/min (90-130); Glucose 160 mg/dL (65-115); Osmolality Calculated 296 mOsm/kg (285-295); Potassium 3.6 mmol/L (3.5-5.1); Sodium 140 mmol/L (136-145)
[2022-07-20] MEDS: aspirin 81 mg EC Tablet PO (05:05)
[2022-07-20] MEDS: pantoprazole DR 40 mg Tablet PO (05:05)
[2022-07-20] MEDS: acetaminophen 325 mg Tablet 650 MG PO (05:05)
[2022-07-20] MEDS: polyethylene glycol 3350 Pkt 17 gm PO (05:06)
[2022-07-20] MEDS: FUROsemide 10 mg/mL SDV 4mL 40 MG IVP ×2 (06:08→18:22)
[2022-07-20 06:43] LABS: Glucose Point of Care 167 mg/dL (70-110)
--- NOTE | 2022-07-20 07:16 | PC.NURSE ---
Bedside report given to Sofiya RN at this time
[2022-07-20] MEDS: ipratropium-albuterol 3 mL Neb INHALATION ×4 (07:58→19:59)
--- NOTE | 2022-07-20 07:59 | P.PN_ITS ---
Subjective Subjective: seen this am no acute events overnight pt walked 38 feet with PT SHe is to dc [place] [facility] in AM doing well 3L urine output overnight Vitals/I&O/Wt Last Vital Signs Temp 98.9 F 07/20/22 04:47 Pulse 76 07/20/22 04:47 Resp 21 H 07/20/22 04:47 BP 143/74 07/20/22 04:47 Pulse Ox 96 07/20/22 04:47 O2 Del Method 07/19/22 19:21 O2 Flow Rate 2 07/19/22 21:50 FiO2 35 07/18/22 23:14 07/19/22 07/20/22 07/20/22 22:59 06:59 14:59 Intake Total 890 / 1540 290 / 1830 Output Total 2750 / 3750 350 / 4100 Balance -1860 / -2210 -60 / -2270 Weight last 48 hrs Weight 123.094 kg Weight 123.094 kg Physical Exam Narrative: General:Alert, oriented x3 on 3L NC HEENT: Normocephalic, atraumatic, EOMI, Cardio: Regular rate rhythm, normal s1, s2 Respiratory: cta b/l, mild ronchi at bases GI: Abdomen soft, nontender, non distended bowel sounds + Extremities: 1+ pitting edema bilateral lower extremities Urinary Catheter Management: [place]: Cath Placed During This Visit: yes Reason for Continuing Indwelling Catheter: Other Urinary Catheter Date of Insertion: 07/16/22 Urinary Catheter Time of Insertion: 13:14 Data 07/20/22 03:19 07/20/22 03:19 Micro: Microbiology 07/16/22 13:52 Urine Culture - Final Urine Catheterized Klebsiella pneumoniae A&P Assessment and plan (1) Acute exacerbation of congestive heart failure: (2) Acute respiratory failure with hypoxia and hypercapnia: (3) RHONDA (acute kidney injury): (4) Transaminitis: (5) Diabetic peripheral neuropathy associated with type 2 diabetes mellitus: (6) Diastolic CHF: (7) Type 2 diabetes mellitus: Qualifiers: Diabetes mellitus group home insulin use: with group home use Diabetes mellitus complication status: with hyperglycemia Qualified Code(s): E11.65 - Type 2 diabetes mellitus with hyperglycemia; Z79.4 - extermination supervisor (current) use of insulin Plan #Acute hypercarbic respiratory failure requiring BiPAP - resolved #Acute on chronic diastolic CHF #Flash pulmonary edema - improved #RHONDA on CKD #Elevated liver enzymes #Possible pneumonia versus enterocolitis #Leukocytosis secondary to stress response versus true infection #High anion gap metabolic acidosis possibly secondary to renal dysfunction ? BCx NTD, UCx growing gm negative rods ? Switch to oral lasix 40 daily in AM. - Continue IV lasix 40 daily for today ?Remove [place] today ? Echo 07/16/22 shows normal EF 55-60 and grade 1 diastolic dysfunction ? Delta troponin negative ? Continue moderate intensity sliding scale insulin ? Continue aspirin atorvastatin, ? Hold hydrochlorothiazide at this time. Hold lisinopril due to RHONDA ? COVID and flu are negative ? Continue to diurese patient - Continue empiric abx zosyn - May start lantus to 30 BID. Home dose is 60 BID. Patient is NPO. For now, will hold. - Urine output 3700 CC overnight - Hep profile complete - Creatinine improved - PT eval [facility] - [facility] be going back [facility] in AM. DNR/DNI Attestations Medical Necessity Statement*: IV diuresis today. Plan for Dc in Am Coding Level of Care Code Acute Code for Chg Fwd Diagnoses Acute exacerbation of congestive heart failure I50.9 Acute respiratory failure with hypoxia and hypercapnia J96.01; J96.02 RHONDA (acute kidney injury) N17.9 Transaminitis R74.01 Diabetic peripheral neuropathy associated with type 2 diabetes mellitus E11.42 Diastolic CHF I50.30 Type 2 diabetes mellitus E11.65; Z79.4 Diabetes mellitus group home insulin use: with termite renewal inspector use Diabetes mellitus complication status: with hyperglycemia
[2022-07-20] MEDS: insulin lispro 100 unit/1 mL SUBCUT ×4 (08:25→21:05)
[2022-07-20] MEDS: pregabalin 100 mg Capsule PO ×3 (08:26→21:04)
[2022-07-20] MEDS: pantoprazole 40 mg SDV IVP (08:45)
[2022-07-20 11:50] LABS: Glucose Point of Care 180 mg/dL (70-110)
[2022-07-20 16:32] LABS: Glucose Point of Care 183 mg/dL (70-110)
--- NOTE | 2022-07-20 18:30 | PC.NURSE ---
Patient resting in bed, AAOx4, VSS while on supplemental oxygen per nasal canula, OOBT BSC, has had a couple loose/soft bm throughout shift. Patient turning self frequently, no c/o pain or discomfort. Removed [place] this AM has had some urinary output but has residual per bladder scan, will continue to monitor output and report to oncoming nurse. Room is clean and clutter free with call light in reach. All questions and concerns addressed during shift.
[2022-07-20 21:00] LABS: Glucose Point of Care 207 mg/dL (70-110)
[2022-07-20] MEDS: atorvastatin 40 mg Tablet 80 MG PO (21:04)
[2022-07-20] MEDS: topiramate 100 mg Tablet PO (21:06)
[2022-07-20] MEDS: sertraline 50 mg Tablet 25 MG PO (21:06)
[2022-07-20] MEDS: zolpidem 5 mg Tablet PO (21:07)
[2022-07-21] VITALS (8 sets, daily range): BP systolic 103–132; BP diastolic 50–74; PULSE 69–74; RESP 15–18; TEMP 36.7–36.9; O2SAT 93–97
[2022-07-21 02:13] LABS: Anion Gap 14.4 (5-19); Blood Urea Nitrogen 22 mg/dL (8-23); Calcium 8.9 mg/dL (8.5-10.5); Carbon Dioxide 32 mmol/L (22-29); Chloride 98 mmol/L (98-107); Glomerular Filtration Rate 83.2 mL/min (90-130); Glucose 153 mg/dL (65-115); Osmolality Calculated 298 mOsm/kg (285-295); Potassium 3.4 mmol/L (3.5-5.1); Sodium 141 mmol/L (136-145)
[2022-07-21] MEDS: heparin 5,000 unit/mL INJ 1 mL 5000 UNIT SUBCUT (03:50)
[2022-07-21] MEDS: polyethylene glycol 3350 Pkt 17 gm PO (05:28)
[2022-07-21] MEDS: pantoprazole DR 40 mg Tablet PO (05:28)
[2022-07-21] MEDS: aspirin 81 mg EC Tablet PO (05:28)
[2022-07-21] MEDS: FUROsemide 10 mg/mL SDV 4mL 40 MG IVP (06:24)
[2022-07-21 06:51] LABS: Glucose Point of Care 189 mg/dL (70-110)
--- NOTE | 2022-07-21 07:10 | PC.NURSE ---
Bedside report given to Sofiya RN at this time
[2022-07-21] MEDS: insulin lispro 100 unit/1 mL SUBCUT ×2 (08:10→11:58)
[2022-07-21] MEDS: piperacillin-tazobactam 3.375 GM in sodium chloride 0.9% (plus) 50 ML IV (08:11)
[2022-07-21] MEDS: pregabalin 100 mg Capsule PO ×2 (08:12→11:58)
[2022-07-21] MEDS: pantoprazole 40 mg SDV IVP (08:24)
[2022-07-21] MEDS: ipratropium-albuterol 3 mL Neb INHALATION (09:06)
[2022-07-21 11:14] LABS: Glucose Point of Care 173 mg/dL (70-110)
--- NOTE | 2022-07-21 11:43 | P.DS_ITS ---
Discharge Providers Date of Admission: 07/16/22 14:26 Date of Discharge: July 21, 2022 Attending Provider at Admission: Yoly Soler MD Attending Provider at Discharge: Karlee Mederos MD Primary Care Provider: Anders Griffin DO Diagnoses at Discharge Discharge Diagnosis (1) Acute exacerbation of congestive heart failure: Status: Acute (2) Acute respiratory failure with hypoxia and hypercapnia: Status: Acute (3) RHONDA (acute kidney injury): Status: Acute (4) Transaminitis: Status: Acute (5) Diabetic peripheral neuropathy associated with type 2 diabetes mellitus: Status: Acute (6) Diastolic CHF: Status: Acute (7) Type 2 diabetes mellitus: Status: Acute Qualifiers: Diabetes mellitus director long term care insulin use: with director long term care use Diabetes mellitus complication status: with hyperglycemia Qualified Code(s): E11.65 - Type 2 diabetes mellitus with hyperglycemia; Z79.4 - alf (current) use of insulin Reason for Visit Reason for Visit: RESP. DISTRESS Hospital Course Hospital Course 66-year female resident of assisted living presented with acute hypercarbic r espiratory failure, she remained BiPAP dependent until her mentation improved, family was contacted when she was not able to make decision, daughter stated that she is DNR/DNI which patient also endorsed when she was much more awake and alert, she was diagnosed with flash pulm edema acute on chronic diastolic CHF and required diuresis, patient started working with PT, she will go back to assisted living after home oxygen evaluation, her EF is preserved 55 to 60%, her Lasix was switched from IV to p.o. regimen on 07/20, Lasix 40 mg daily, total negative balance of 5 L, urine culture showing gram-negative rods, she will go back to [facility] She remained afebrile, urine culture showing Klebsiella, mild leukocytosis She will get levofloxacin 3-day regimen at the time of discharge I will discontinue medications that can cause sedation Physical Exam Narrative: Pleasant cooperative currently on 2 L nasal cannula Nonfocal neuro exam Awake and alert GCS 15 Able to answer my question appropriately Appropriate mood and affect No audible stridor or wheezing Urinary Catheter Management: Nava: Cath Placed During This Visit: yes, but has since been removed by the nurse Reason for Continuing Indwelling Catheter: Decision to DC Catheter Urinary Catheter Date of Insertion: 07/21/22 Urinary Catheter Time of Insertion: 08:30 Date Urinary Catheter Removed: 07/20/22 Time Urinary Catheter Discontinued: 11:50 Discharge Data Studies Completed and Pending Completed Studies During Hospitalization Category Date Time Status CTA chest CT abdomen pelvis [CT angio chest w abd pel w Cat Scan 07/16/22 10 :55 Completed con] Stat XR KUB portable [id number] Routine Exams 07/18/22 09:55 Completed XR chest 1V portable [id number] Routine Exams 07/19/22 08:00 Completed XR chest 1V portable [id number] Stat Exams 07/16/22 09:40 Completed CV. echo wo/w contrast [id number] Urgent Ultrasound 07/16/22 13:45 Completed Pending at discharge Category Date Time Status Sputum Culture and Gram Stain Stat Lab 07/16/22 15:34 Uncollected Radiology Impressions Chest/Abdomen/Pelvis CT 07/16/22 10:55 IMPRESSION: 1. Study is suboptimal due to patient motion, size and artifact from the patient's arms. 2. No central pulmonary embolism. 3. Small RIGHT pleural effusion with bibasilar atelectasis. 4. Motion artifact involving the visceral organs. Note definite abnormality identified involving the gallbladder. There is mild haziness but I believe this is secondary to artifact. 5. Small amount of ascites within the abdomen and pelvis. 6. Edema within a focal small bowel loop in the central abdomen suspicious for enterocolitis. No obstruction. 7. Extensive diverticular disease. There is fluid along the sigmoid colon but no focal acute diverticulitis. 8. No free air is identified but small foci of air may not be visualized with this amount of motion and artifact. 9. Variable enhancement throughout the liver. Heterogeneous liver. Probably due to motion. KUB X-Ray 07/18/22 09:55 IMPRESSION: Gaseous distention of the stomach otherwise unremarkable bowel gas pattern. Chest X-Ray 07/19/22 08:00 IMPRESSION: Imaging findings suggestive of pulmonary congestion. Pneumonia should be excluded clinically. Laboratory Results WBC 11.2 10^3/uL (4.0-10.0) H 07/20/22 03:19 RBC 5.22 10^6/uL (4.1-5.3) 07/20/22 03:19 Hgb 13.2 g/dL (11.5-15.3) 07/20/22 03:19 Hct 44.5 % (37.0-47.0) 07/20/22 03:19 MCV 85.2 fl (81-99) 07/20/22 03:19 MCH 25.3 pg (28.0-34.0) L 07/20/22 03:19 MCHC 29.7 g/dL (30.0-36.0) L 07/20/22 03:19 RDW 15.6 % (12.1-15.1) H 07/20/22 03:19 Plt Count 211 10^3/cmm (130-400) 07/20/22 03:19 MPV 10.3 fL (7.4-10.4) 07/20/22 03:19 Neut % (Auto) 74.0 % 07/20/22 03:19 Lymph % (Auto) 14.0 % 07/20/22 03:19 [place] % (Auto) 10.2 % 07/20/22 03:19 Eos % (Auto) 1.2 % 07/20/22 03:19 Baso % (Auto) 0.4 % 07/20/22 03:19 Neut # (Auto) 8.32 10^3/uL (1.8-7.7) H 07/20/22 03:19 Lymph # (Auto) 1.6 10^3/uL (0.8-4.8) 07/20/22 03:19 [place] # (Auto) 1.2 10^3/uL (0.2-0.9) H 07/20/22 03:19 Eos # (Auto) 0.1 10^3/uL (0.0-0.8) 07/20/22 03:19 Baso # (Auto) 0.0 10^3/uL (0.0-0.1) 07/20/22 03:19 Nucleated RBC % (auto) 0 % 07/20/22 03:19 Nucleated RBCs # 0.0 /100WBC 07/20/22 03:19 D-Dimer 2.19 ug/mIFEU (0-0.59) H 07/16/22 10:14 Specimen Type Arterial 07/18/22 04:39 Sample Site Brachial, left 07/18/22 04:39 ABG pH 7.43 (7.35-7.45) 07/18/22 04:39 ABG pCO2 59.8 mmHg (35-45) H 07/18/22 04:39 ABG pO2 79.1 mmHg (80.0-100.0) L 07/18/22 04:39 ABG HCO3 39.3 mmol/L (22-26) H 07/18/22 04:39 ABG O2 Saturation 95.0 07/18/22 04:39 ABG Base Excess 12.2 mmol/L (-2.0-2.0) H 07/18/22 04:39 Av Test Pos 07/18/22 04:39 A-a O2 Gradient 12.9 mmHg (5-10) H 07/18/22 04:39 Hematocrit 44.0 % (37-47) 07/18/22 04:39 Hgb O2 Saturation 93.9 % (95-100) L 07/18/22 04:39 Carboxyhemoglobin 0.6 %THgb (0.4-20.1) 07/18/22 04:39 Methemoglobin 0.5 % (0.4-1.5) 07/18/22 04:39 Total Hemoglobin 14.4 g/dL (12-16) 07/18/22 04:39 Sodium 146.0 mmol/L (131-143) H 07/18/22 04:39 Potassium 3.4 mmol/L (3.5-5.0) L 07/18/22 04:39 Glucose 78.0 mg/dL (70-115) 07/18/22 04:39 Ionized Calcium 1.2 mmol/L (1.1-1.4) 07/18/22 04:39 O2 Delivery Device Bipap 07/18/22 04:39 O2 Liters/Min 4.0 % 07/17/22 13:14 FiO2 35.0 % 07/18/22 04:39 Tidal Volume 0.45 07/17/22 04:40 PEEP 6.0 cmH20 07/18/22 04:39 Lockstitch Zipper Setter ID [email or web address] 07/18/22 04:39 Sodium 141 mmol/L (136-145) 07/21/22 01:29 Potassium 3.4 mmol/L (3.5-5.1) L 07/21/22 01:29 Chloride 98 mmol/L (98-107) 07/21/22 01:29 Carbon Dioxide 32 mmol/L (22-29) H 07/21/22 01:29 Anion Gap 14.4 (5-19) 07/21/22 01:29 BUN 22 mg/dL (8-23) 07/21/22 01:29 Creatinine 0.7 mg/dL (0.5-0.9) 07/21/22 01:29 GFR Calculation 83.2 mL/min (90-130) L 07/21/22 01:29 Glucose 153 mg/dL (65-115) H 07/21/22 01:29 POC Glucose 173 mg/dL (70-110) H 07/21/22 11:00 Calculated Osmolality 298 mOsm/kg (285-295) H 07/21/22 01:29 Lactic Acid 1.5 mmol/L (0.5-2.2) 07/16/22 10:14 Calcium 8.9 mg/dL (8.5-10.5) 07/21/22 01:29 Magnesium 2.2 mg/dL (1.7-2.3) 07/19/22 02:21 Total Bilirubin 0.3 mg/dL (0.15-1.2) 07/18/22 02:57 AST 40 U/L (0-32) H 07/18/22 02:57 ALT 41 U/L (0-33) H 07/18/22 02:57 Alkaline Phosphatase 78 U/L (35-105) 07/18/22 02:57 Troponin T Baseline 38 ng/L (0-10) H 07/16/22 10:34 Troponin T 120 Minute 35.72 ng/L (0-10) H 07/16/22 13:20 Delta Troponin T -2.28 ABS# (0-10) L 07/16/22 13:20 Troponin T Hi Sens 6Hr 35.62 ng/L (0-10) H 07/16/22 16:35 Troponin T Hi Sens 6Hr Delta -2.38 ng/L (0-12) L 07/16/22 16:35 NT-Pro-B Natriuret Pep 78616 pg/mL (0-125) H 07/16/22 10:34 Total Protein 6.6 g/dL (6.6-8.7) 07/18/22 02:57 Albumin 3.5 g/dL (3.5-5.2) 07/18/22 02:57 Globulin 3.1 g/dL (1.3-4.6) 07/18/22 02:57 Procalcitonin 0.09 ng/mL (0-0.5) 07/16/22 13:20 Urine Color Yellow (Yellow) 07/16/22 13:52 Urine Appearance Hazy (CLEAR) A 07/16/22 13:52 Urine pH 5 (5-7) 07/16/22 13:52 Ur Specific [place] 1.015 (1.005-1.030) 07/16/22 13:52 Urine Protein Neg (Negative) 07/16/22 13:52 Urine Glucose (UA) 1+ (Normal) H 07/16/22 13:52 Urine Ketones Negative (Negative) 07/16/22 13:52 Urine Blood Neg (Negative) 07/16/22 13:52 Urine Nitrate Negative (Negative) 07/16/22 13:52 Urine Bilirubin Neg (Negative) 07/16/22 13:52 Urine Urobilinogen Neg mg/dL (Negative) 07/16/22 13:52 Ur Leukocyte Esterase Negative (Negative) 07/16/22 13:52 Urine RBC Rare /hpf (0-2) 07/16/22 13:52 Urine WBC 5-10 /hpf (0-5) H 07/16/22 13:52 Ur Squamous Epith Cells 0-4 /hpf (0-5) H 07/16/22 13:52 Amorphous Sediment Not Reportable 07/16/22 13:52 Urine Bacteria 1+ /hpf (NONE) H 07/16/22 13:52 Hepatitis A IgM Ab Non-reactive (Nonreactive) 07/17/22 15:16 Hep Bs Antigen Non-reactive (Nonreactive) 07/17/22 15:16 Hep Bs Antibody 3.5 (11.5-1000) L 07/17/22 15:16 Hep B Core Total Ab Non-reactive (Nonreactive) 07/17/22 15:16 Hepatitis C Antibody Non-reactive (Nonreactive) 07/17/22 15:16 Influenza Type A Ag negative (Negative) 07/16/22 10:00 Influenza Type B Ag negative (Negative) 07/16/22 10:00 SARS-CoV-2 Ag (Rapid) negative (Negative) 07/16/22 10:00 Vitals Last Vital Signs Temp 98.0 F 07/21/22 11:30 Pulse 72 07/21/22 11:30 Resp 16 07/21/22 11:30 BP 115/62 07/21/22 11:30 Pulse Ox 96 07/21/22 11:30 O2 Del Method 07/21/22 11:30 O2 Flow Rate 3 07/21/22 09:07 FiO2 35 07/18/22 23:14 Discharge Plan Discharge Patient Disposition: Xfer Other Condition: Stable Prescriptions: New levofloxacin 750 mg tablet 750 mg PO DAILY 7 Days Qty: 7 0RF Continued atorvastatin 40 mg tablet 80 mg PO BEDTIME oxycodone-acetaminophen 5-325 mg tablet 1 tab PO TID PRN (Reason: pain) 30 Days Qty: 90 0RF Rx Instructions: May fill 30 days after last refill. (DME) Diabetic Shoes with 3 Pairs of Inserts See Rx Instructions .Route .MEDSUPPLY Qty: 1 0RF Rx Instructions: As directed by HOME acetaminophen [Tylenol] 325 mg Tablet 650 mg PO QID PRN (Reason: PAIN/FEVER) loperamide 2 mg Capsule 2 mg PO DAILY MDD 4 tabs PRN (Reason: Loose Stool) magnesium hydroxide [Milk of Magnesia] 400 mg/5 mL Suspension 15 ml PO DAILY PRN (Reason: Constipation) bisacodyl 10 mg Suppository 10 mg MO DAILY PRN (Reason: Constipation) Fleet Enema 19-7 gram/118 mL Enema 118 ml MO DAILY PRN (Reason: Constipation) Culturelle 10 billion cell Capsule 1 cap PO DAILY PRN (Reason: ANTIBIOTIC THERAPY) insulin lispro [Humalog KwikPen Insulin] 100 unit/mL insulin pen 35 unit SUBCUT TID@0630,1030,1530 lisinopril-hydrochlorothiazide 20-12.5 mg tablet 1 tab PO DAILY@0800 potassium chloride [Klor-Con 10] 10 mEq tablet extended release 10 meq PO DAILY@0800 aspirin [Adult Aspirin Regimen] 81 mg tablet,delayed release (DR/EC) 81 mg PO QAM dicyclomine 20 mg tablet 20 mg PO QID@08,12,16,20 furosemide [Lasix] 20 mg tablet 20 mg PO DAILY@0800 Farxiga 5 mg tablet 5 mg PO DAILY@0800 Miralax 17 gram Powder In Packet 17 g PO QAM Protonix 40 mg Tablet,Delayed Release (Dr/Ec) 40 mg PO QAM Zoloft 25 mg Tablet 25 mg PO BEDTIME Topamax 100 mg Tablet 100 mg PO BEDTIME Vitamin D3 25 mcg (1,000 unit) Capsule 50 mcg PO QAM Tresiba FlexTouch U-200 200 unit/mL (3 mL) Insulin Pen 75 unit SUBCUT BID@06,20 Interlaminar Epidural Steroid See Rx Instructions .ROUTE .COMPLEX Rx Instructions: gets injection every 2 to 3 months Discontinued tizanidine 2 mg capsule 2 mg PO BID PRN (Reason: MUSCLE SPASMS) propranolol 60 mg capsule,extended release 24 hr 60 mg PO QAM pregabalin [Lyrica] 100 mg capsule 100 mg PO TID@08,12,20 Fosamax 70 mg Tablet 70 mg PO Q7D Ambien 5 mg Tablet 5 mg PO BEDTIME Discharge Orders: Discharge Order (Routine); Ordered 07/21/22 Ordered By: Karlee Mederos Referrals: Anders Griffin DO [Primary Care Provider] - Discharge Attestations Time Spent in Discharge Care*: less than 30 min Quality Metrics Clinical Quality Measures [ No reported AMI, CVA or VTE this stay] Coding Level of Care Code Acute Chg FW DC note Diagnoses Acute exacerbation of congestive heart failure I50.9 Acute respiratory failure with hypoxia and hypercapnia J96.01; J96.02 RHONDA (acute kidney injury) N17.9 Transaminitis R74.01 Diabetic peripheral neuropathy associated with type 2 diabetes mellitus E11.42 Diastolic CHF I50.30 Type 2 diabetes mellitus E11.65; Z79.4 Diabetes mellitus director long term care insulin use: with director long term care use Diabetes mellitus complication status: with hyperglycemia
--- NOTE | 2022-07-21 11:54 | PC.CHAP ---
Pastoral Care Encounter/Spiritual Assessment Type of Contact [] Declined helper electrical visit [] Patient/Family/Request visit [] Outpatient visit [] Follow-up visit [] Physician referral [] Code/Alert [x] Routine visit [] Staff referral [] Actively dying [] Patient sleeping [] Family support [] [] Out of room [] Palliative care [] [] Receiving care in room [] Pre-surgical visit [] Trauma [] Long length of stay [] ICU visit [] Other: Relational/Emotional Strength [] Patient feels connected with others/family/visitors/staff [] Distress [] Loneliness/isolation [] Abandonment Spirituality of Patient [x] Person of Viri [x] Attends [employer] of their Viri [x] Believes in Prayer [] Reads Bible or Tenriism materials [] There are Spiritual issues to be addressed Sap Business Objects Developer Interventions [x] Prayer [x] Active listening [x] Non-anxious presence [x] Spiritual/emotional support [] Crisis/trauma care [] Spiritual counseling [] Bereavement support [] Provided bereavement packet [] Provided Bible/devotional materials [] Provided toy/stuffed animal, coloring book to patient or family member [] Provided Communion [] Anointing/[place] [] Salvation [x] Completed spiritual assessment [] Other: Impact on Illness or Injury [] Angry [] Fearful [] Anxious [] Often cries [] Exhaustion [] Unable to work [] Unable to attend confucianist [] Unable to walk/stand [] Unable to read [] Unable to drive [] Unable to eat/drink [] Unable to sleep [] Unable to be with family [] Patient intubated [] Other: Summary Time spent with patient 10 min
--- NOTE | 2022-07-21 15:02 | PC.NURSE ---
Report called to [facility] to SHABNAM Malik. All questions answered at this time. Patient has portable O2 tank to go with her, [place] is in place for urinary retention.
== END 2022-07-21 16:45 | disposition home or self-care (01) | DRG 291 ==
LOC: ER 13:43 → ICU 19:25 → MEDSURG 07-18 17:58
PROVIDERS: Admitting Provider Internal Medicine; Emergency Provider Emergency Medicine; PCP Internal Medicine; Visit Provider Internal Medicine
DX: I13.0 Hypertensive heart and chronic kidney disease with heart failure and stage 1 through stage 4 chronic kidney disease, or unspecified chronic kidney disease (principal); E11.00 Type 2 diabetes mellitus with hyperosmolarity without nonketotic hyperglycemic-hyperosmolar coma (NKHHC); I50.33 Acute on chronic diastolic (congestive) heart failure; J96.02 Acute respiratory failure with hypercapnia; J96.01 Acute respiratory failure with hypoxia; N17.9 Acute kidney failure, unspecified; N39.0 Urinary tract infection, site not specified; N18.9 Chronic kidney disease, unspecified; E11.22 Type 2 diabetes mellitus with diabetic chronic kidney disease; E11.42 Type 2 diabetes mellitus with diabetic polyneuropathy; Z66 Do not resuscitate; Z79.891 Long term (current) use of opiate analgesic; Z79.4 Long term (current) use of insulin; Z79.82 Long term (current) use of aspirin; E78.5 Hyperlipidemia, unspecified; B96.1 Klebsiella pneumoniae [K. pneumoniae] as the cause of diseases classified elsewhere
CPT/HCPCS: 36415; 36416; 36600; 51702; 51798; 71045; 71275; 74018; 74177; 80048; 80051; 80053; 81001; 82330; 82803; 82805; 82962; 83605; 83735; 83880; 84145; 84484; 85025; 85378; 86705; 86706; 86709; 86803; 87040; 87077; 87086; 87186; 87340; 87426; 87804; 93005; 94640; 94660; 94664; 94760; 96365; 96367; 96372; 96375; 96376; 97110; 97116; 97161; 97530; 99214; 99291; C8929; C9113; J0696; J1644; J1815; J1940; J2543; J3490; Q9956; Q9967

== ENCOUNTER → 2022-08-11 09:54 | Outpatient (BNVA) | payer MEDICARE, MEDICAID, SELFPAY | PROVIDERS: PCP Internal Medicine; Visit Provider Anesthesiology Pain Medicine | DX: M51.16 Intervertebral disc disorders with radiculopathy, lumbar region (principal); M25.562 Pain in left knee | CPT/HCPCS: 99213 ==

== ENCOUNTER 2022-08-19 09:34 | Outpatient (CLI) | payer MEDICARE, MEDICAID, SELFPAY ==
--- NOTE | 2022-08-19 10:16 | USCV_ITS ---
Fatuma Ching Age: 66 Gender: F : 1955 Exam Date: 08/19/2022 10:26 Ordering Phys: Masoud Charles MD (And[email or web address] [place]ologist: RADHA [place] [facility] [place] Indication: Stenosis Risk Factors: Previous Vascular Surgery: Right Brachial BP: / Left Brachial BP: / Right Left Velocity (cm/s) Spectral Plaque Velocity (cm/s) Spectral Plaque Syst/Diast Broadening Syst/Diast Broadening 50.60/ 10.50 Prox CCA 69.90 / 16.30 54.60/ 14.50 Mid CCA 94.80 / 24.90 50.00/ 15.10 Distal CCA 90.10 / 19.40 47.00/ 15.10 Prox ICA 64.10 / 24.60 60.50/ 22.70 Mid ICA 85.40 / 34.80 72.20/ 28.70 Distal ICA 89.70 / 30.80 153.80 ECA 64.10 1.32 ICA/CCA 0.95 Vertebral 57.50/ 14.80 cm/s 57.50/ 16.30 cm/s Subclavian 64.50 113.6 0 FINDINGS No changes since 07/16/21 CONCLUSIONS Right ICA stenosis <50%. Left ICA stenosis <50%. Normal antegrade Doppler flow noted in the right vertebral artery. Normal antegrade Doppler flow noted in the left vertebral artery. Dario Dougherty MD (Electronically Signed) Final Date: 19 August 2022 13:14 S
== END 2022-08-19 09:35 | disposition home or self-care (01) ==
PROVIDERS: PCP Internal Medicine; Visit Provider Thoracic Surgery (Cardiothoracic Vascular Surgery)
DX: I65.23 Occlusion and stenosis of bilateral carotid arteries (principal)
CPT/HCPCS: 93880

== ENCOUNTER → 2022-09-09 09:20 | Outpatient (BNVA) | payer MEDICARE, MEDICAID, SELFPAY | PROVIDERS: PCP Internal Medicine; Visit Provider Podiatrist Foot & Ankle Surgery | DX: L60.3 Nail dystrophy (principal); M20.41 Other hammer toe(s) (acquired), right foot; M20.42 Other hammer toe(s) (acquired), left foot; E11.9 Type 2 diabetes mellitus without complications; M21.612 Bunion of left foot; M21.611 Bunion of right foot; Z79.4 Long term (current) use of insulin | CPT/HCPCS: 11721 ==

== ENCOUNTER → 2022-09-15 10:29 | Outpatient (BNVA) | payer MEDICARE, MEDICAID, SELFPAY | PROVIDERS: PCP Internal Medicine; Visit Provider Anesthesiology Pain Medicine | DX: M51.16 Intervertebral disc disorders with radiculopathy, lumbar region (principal); M25.562 Pain in left knee | CPT/HCPCS: 99214 ==

== ENCOUNTER → 2022-10-13 10:15 | Outpatient (BNVA) | payer MEDICARE, MEDICAID, SELFPAY | PROVIDERS: PCP Internal Medicine; Visit Provider Anesthesiology Pain Medicine | DX: M25.511 Pain in right shoulder (principal); M51.16 Intervertebral disc disorders with radiculopathy, lumbar region; M25.562 Pain in left knee | CPT/HCPCS: 99214 ==

== ENCOUNTER 2022-11-14 11:52 | Outpatient (CLI) | payer MEDICARE, MEDICAID, SELFPAY ==
--- NOTE | 2022-11-14 12:09 | XR_ITS ---
WS: [id number] Right shoulder, 3 views, 11/14/2022 Clinical Data: M25.519 - Pain in unspecified shoulder Comparison: None. Findings: No fractures or dislocations are seen. The AC joint is normal. The adjacent right clavicle, right sca pula and ribs are normal. The soft tissues show calcifications adjacent to the greater tuberosity whi ch probably represent calcific bursitis and/or tendinitis. XR/XR shoulder RT min 2V* [id number] Impression: Probable calcific bursitis and/or tendinitis of the greater tuberosity of the r ight humerus.
== END 2022-11-14 11:53 | disposition home or self-care (01) ==
LOC: RAD 11:55
PROVIDERS: PCP Internal Medicine; Visit Provider Anesthesiology Pain Medicine
DX: M25.511 Pain in right shoulder (principal)
CPT/HCPCS: 73030

== ENCOUNTER → 2022-11-18 10:19 | Outpatient (BNVA) | payer MEDICARE, MEDICAID, SELFPAY | PROVIDERS: PCP Internal Medicine; Visit Provider Anesthesiology Pain Medicine | DX: M75.51 Bursitis of right shoulder (principal); M51.16 Intervertebral disc disorders with radiculopathy, lumbar region | CPT/HCPCS: 99214 ==

== ENCOUNTER → 2022-12-16 10:30 | Outpatient (BNVA) | payer MEDICARE, MEDICAID, SELFPAY | PROVIDERS: PCP Internal Medicine; Visit Provider Anesthesiology Pain Medicine | DX: M51.16 Intervertebral disc disorders with radiculopathy, lumbar region (principal); M25.511 Pain in right shoulder | CPT/HCPCS: 99214 ==

== ENCOUNTER → 2023-01-07 10:56 | Outpatient (BNVA) | payer MEDICARE, MEDICAID, SELFPAY | PROVIDERS: PCP Internal Medicine; Visit Provider Podiatrist Foot & Ankle Surgery | DX: E11.42 Type 2 diabetes mellitus with diabetic polyneuropathy (principal); L60.3 Nail dystrophy; M20.41 Other hammer toe(s) (acquired), right foot; M20.42 Other hammer toe(s) (acquired), left foot; M21.612 Bunion of left foot; M21.611 Bunion of right foot | CPT/HCPCS: 11721 ==

== ENCOUNTER → 2023-01-28 13:18 | Outpatient (BNVA) | payer MEDICARE, MEDICAID, SELFPAY | PROVIDERS: PCP Internal Medicine; Visit Provider Anesthesiology Pain Medicine | DX: M19.011 Primary osteoarthritis, right shoulder | CPT/HCPCS: 20610; J1030; J3490 ==

== ENCOUNTER → 2023-02-09 08:54 | Outpatient (BNVA) | payer MEDICARE, MEDICAID, SELFPAY | PROVIDERS: PCP Internal Medicine; Visit Provider Anesthesiology Pain Medicine | DX: M51.16 Intervertebral disc disorders with radiculopathy, lumbar region (principal); M25.562 Pain in left knee | CPT/HCPCS: 99213 ==

== ENCOUNTER → 2023-03-24 08:49 | Outpatient (BNVA) | payer MEDICARE, MEDICAID, SELFPAY | PROVIDERS: PCP Internal Medicine; Visit Provider Anesthesiology Pain Medicine | DX: M51.16 Intervertebral disc disorders with radiculopathy, lumbar region (principal); M25.562 Pain in left knee | CPT/HCPCS: 99214 ==

== ENCOUNTER → 2023-04-23 09:36 | Outpatient (BNVA) | payer MEDICARE, MEDICAID, SELFPAY | PROVIDERS: PCP Internal Medicine; Visit Provider Anesthesiology Pain Medicine | DX: M51.16 Intervertebral disc disorders with radiculopathy, lumbar region (principal) | CPT/HCPCS: 99214 ==

== ENCOUNTER → 2023-05-12 10:41 | Outpatient (BNVA) | payer MEDICARE, MEDICAID, SELFPAY | PROVIDERS: PCP Internal Medicine; Visit Provider Anesthesiology Pain Medicine | DX: M51.16 Intervertebral disc disorders with radiculopathy, lumbar region (principal); M25.562 Pain in left knee | CPT/HCPCS: 99214 ==

== ENCOUNTER → 2023-06-10 10:33 | Outpatient (BNVA) | payer MEDICARE, MEDICAID, SELFPAY | PROVIDERS: PCP Internal Medicine; Visit Provider Anesthesiology Pain Medicine | DX: M51.16 Intervertebral disc disorders with radiculopathy, lumbar region (principal); M25.562 Pain in left knee | CPT/HCPCS: 99214 ==

== ENCOUNTER → 2023-07-08 10:20 | Outpatient (BNVA) | payer MEDICARE, MEDICAID, SELFPAY | PROVIDERS: PCP Internal Medicine; Visit Provider Podiatrist Foot & Ankle Surgery | DX: E11.42 Type 2 diabetes mellitus with diabetic polyneuropathy (principal); L60.3 Nail dystrophy; M20.41 Other hammer toe(s) (acquired), right foot; M20.42 Other hammer toe(s) (acquired), left foot; M79.671 Pain in right foot; M79.672 Pain in left foot; M21.612 Bunion of left foot; M21.611 Bunion of right foot; Z79.4 Long term (current) use of insulin | CPT/HCPCS: 11721 ==

== ENCOUNTER → 2023-07-14 10:09 | Outpatient (BNVA) | payer MEDICARE, MEDICAID, SELFPAY | PROVIDERS: PCP Internal Medicine; Visit Provider Anesthesiology Pain Medicine | DX: M51.16 Intervertebral disc disorders with radiculopathy, lumbar region (principal); M25.562 Pain in left knee | CPT/HCPCS: 99214 ==

== ENCOUNTER 2023-07-31 09:33 | Outpatient (CLI) | payer MEDICARE, MEDICAID, SELFPAY ==
--- NOTE | 2023-07-31 09:45 | USCV_ITS ---
Fatuma Ching Age: 67 Gender: F : 1955 Exam Date: 07/31/2023 10:00 Ordering Phys: Masoud Charles MD (Andy[email or web address] Technologist: Manny Avila [place]am Location[place] [facility] [place] Indication: carotid stenosis Risk Factors: Previous Vascular Surgery: Right Brachial BP: / Left Brachial BP: / Right Left Velocity (cm/s) Spectral Plaque Velocity (cm/s) Spectral Plaque Syst/Diast Broadening Syst/Diast Broadening 88.70/ 14.50 Prox CCA 93.60 / 15.60 63.80/ 12.50 Mid CCA 99.20 / 20.90 78.20/ 17.70 Distal CCA 88.20 / 16.50 134.10/36.80 Prox ICA 124.60/ 34.20 57.10/ 20.30 Mid ICA 81.70 / 23.50 59.30/ 24.60 Distal ICA 140.00/ 49.60 324.70 ECA 99.20 0.90 ICA/CCA 0.82 Antegrade Vertebral Antegrade 72.20/ 16.30 cm/s 84.90/ 27.60 cm/s Tri Subclavian Tri 136.7 149.9 0 0 FINDINGS Comparison:. 08/19/22 No significant elevation of systolic or diastolic velocities. Waveforms are normal. Minimal amount of calcified plaque and intimal thickening identified. Antegrade vertebral arteries. CONCLUSIONS Bilateral ICA stenosis less than 50%. Minimal carotid atherosclerosis. Dr. Erin Iglesias DO (Electronically Signed) Final Date: 31 July 2023 13:34 S
== END 2023-07-31 09:34 | disposition home or self-care (01) ==
LOC: RAD 09:34
PROVIDERS: PCP Internal Medicine; Visit Provider Thoracic Surgery (Cardiothoracic Vascular Surgery)
DX: I65.23 Occlusion and stenosis of bilateral carotid arteries (principal)
CPT/HCPCS: 93880

== ENCOUNTER → 2023-08-13 10:07 | Outpatient (BNVA) | payer MEDICARE, MEDICAID, SELFPAY | PROVIDERS: PCP Internal Medicine; Visit Provider Anesthesiology Pain Medicine | DX: M51.16 Intervertebral disc disorders with radiculopathy, lumbar region (principal); M25.562 Pain in left knee | CPT/HCPCS: 99214 ==

== ENCOUNTER → 2023-09-07 14:12 | Outpatient (BNVA) | payer MEDICARE, MEDICAID, SELFPAY | PROVIDERS: PCP Internal Medicine; Visit Provider Thoracic Surgery (Cardiothoracic Vascular Surgery) | DX: I65.21 Occlusion and stenosis of right carotid artery (principal) | CPT/HCPCS: 99213 ==

== ENCOUNTER → 2023-09-15 10:15 | Outpatient (BNVA) | payer MEDICARE, MEDICAID, SELFPAY | PROVIDERS: PCP Internal Medicine; Visit Provider Anesthesiology Pain Medicine | DX: M51.16 Intervertebral disc disorders with radiculopathy, lumbar region (principal); M25.562 Pain in left knee | CPT/HCPCS: 99214 ==

== ENCOUNTER → 2023-10-29 09:45 | Outpatient (BNVA) | payer MEDICARE, MEDICAID, SELFPAY | PROVIDERS: PCP Internal Medicine; Visit Provider Anesthesiology Pain Medicine | DX: M51.16 Intervertebral disc disorders with radiculopathy, lumbar region (principal) | CPT/HCPCS: 99214 ==

== ENCOUNTER → 2023-11-12 14:07 | Outpatient (BNVA) | payer MEDICARE, MEDICAID, SELFPAY | PROVIDERS: PCP Internal Medicine; Visit Provider Anesthesiology Pain Medicine | DX: M79.18 Myalgia, other site (principal); M54.2 Cervicalgia; M54.9 Dorsalgia, unspecified; M51.16 Intervertebral disc disorders with radiculopathy, lumbar region; M25.562 Pain in left knee | CPT/HCPCS: 20553; 99214; J1010; J3490 ==

== ENCOUNTER 2024-07-10 11:08 | Inpatient (IN) | payer MEDICARE, MEDICAID, SELFPAY ==
[2024-07-10] VITALS (25 sets, daily range): BP systolic 116–162; BP diastolic 44–92; PULSE 59–68; RESP 14–23; TEMP 36.9; O2SAT 91–99; BMI 35.2
--- NOTE | 2024-07-10 11:25 | ECG_ITS ---
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 Measurements Intervals [place] Rate: 60 P: 75 UT: 191 QRS: 87 QRSD: 91 T: 66 QT: 406 QTc: 407 Interpretive Statements SINUS RHYTHM Compared to ECG 07/16/2022 15:42:51 Sinus bradycardia no longer present Right-axis deviation no longer present Myocardial infarct finding no longer present Electronically Signed On 07-12-2024 23:50:30 WAREHOUSE PROCESSOR by Alli Loyola M.D. [email or web address]
--- NOTE | 2024-07-10 11:26 | XRR_ITS ---
PROCEDURE INFORMATION: Exam: XR Chest Exam date and time: 07/10/2024 11:32 AM Age: 68 years old Clinical indication: Shortness of breath; Patient HX: PT here from [facility] via EMS with C/O SOB. EMS reports PT has weakness. PT wears 3 L nc at baseline, EMS states they put PT of 6 L nc en route. EMS reports PT has HX of copd and chf. TECHNIQUE: Imaging protocol: Radiologic exam of the chest. Views: 1 view. COMPARISON: CR XR chest 1V portable [id number] 07/19/2022 5:02 AM FINDINGS: Lungs: Bronchovascular and interstitial prominence bilaterally. Pleural spaces: The left costophrenic angle is obscured by enlarged cardiomediastinal silhouette. No definitive right-sided pleural effusion. No definitive pneumothorax. Heart/Mediastinum: The cardiomediastinal silhouette is enlarged and stable. Bones/joints: Unremarkable. XR/XR chest 1V portable [id number] IMPRESSION: 1. Stable cardiomegaly with findings suggesting pulmonary vascular congestion. Superimposed infectious or inflammatory infiltrate is not entirely excluded. 2. No definitive pleural effusion or pneumothorax.
--- NOTE | 2024-07-10 11:40 | ED_ITS ---
HPI - SOB/Dyspnea 2 General: Chief Complaint: Shortness of Breath/Dyspnea Stated Complaint: sob Time Seen by Provider: 07/10/24 11:10 Source: patient and EMS Mode of arrival: EMS Limitations: no limitations History of Present Illness: HPI Narrative: 68-year-old female with a history of CHF she states that over the last few days she been having increasing shortness of breath along with edema. Patient is here from [facility] per EMS they states she was on 3 L and they had increased her to 6. She denies any cough or fever she denies any pain. She states she gets very short of breath with any exertion Associated symptoms: Deny abdominal pain, chest pain, fever(s), nausea or vomiting Related Data Home Medications Medication Instructions Recorded Confirmed atorvastatin 40 mg tablet 80 mg PO BEDTIME 11/08/20 11/12/23 Lactobacillus rhamnosus GG 10 1 cap PO DAILY PRN ANTIBIOTIC 12/03/20 11/12/23 billion cell capsule (Culturelle) THERAPY acetaminophen 325 mg tablet 650 mg PO QID PRN PAIN/FEVER 12/03/20 11/12/23 (Tylenol) aspirin 81 mg tablet,delayed 81 mg PO QAM 12/03/20 11/12/23 release (Adult Aspirin Regimen) bisacodyl 10 mg rectal suppository 10 mg MI DAILY PRN Constipation 12/03/20 11/12/23 dapagliflozin propanediol 5 mg 5 mg PO DAILY@0800 12/03/20 11/12/23 tablet (Farxiga) dicyclomine 20 mg tablet 20 mg PO QID@08,12,16,20 12/03/20 11/12/23 furosemide 20 mg tablet (Lasix) 20 mg PO DAILY@0800 12/03/20 11/12/23 insulin lispro 100 unit/mL 35 unit SUBCUT TID@0630,1030,1530 12/03/20 11/12/23 subcutaneous pen (Humalog KwikPen (U-100) Insulin) lisinopril 20 1 tab PO DAILY@0800 12/03/20 11/12/23 mg-hydrochlorothiazide 12.5 mg tablet loperamide 2 mg capsule 2 mg PO DAILY PRN Loose Stool 12/03/20 11/12/23 magnesium hydroxide 400 mg/5 mL 15 ml PO DAILY PRN Constipation 12/03/20 11/12/23 oral suspension (Milk of Magnesia) potassium chloride 10 mEq 10 meq PO DAILY@0800 12/03/20 11/12/23 tablet,extended release (Klor-Con) sodium phosphates 19 gram-7 118 ml MI DAILY PRN Constipation 12/03/20 11/12/23 gram/118 mL enema (Fleet Enema) Interlaminar Epidural Steroid See Rx Instructions .Route .COMPLEX 07/16/22 11/12/23 alendronate 70 mg tablet (Fosamax) 70 mg PO Q7D 07/16/22 11/12/23 cholecalciferol (vitamin D3) 25 50 mcg PO QAM 07/16/22 11/12/23 mcg (1,000 unit) capsule (Vitamin D3) insulin degludec 200 unit/mL (3 75 unit SUBCUT BID@06,20 07/16/22 11/12/23 mL) subcutaneous pen (Tresiba FlexTouch U-200 insulin) pantoprazole 40 mg tablet,delayed 40 mg PO QAM 07/16/22 11/12/23 release (Protonix) polyethylene glycol 3350 17 gram 17 g PO QAM 07/16/22 11/12/23 oral powder packet (Miralax) sertraline 25 mg tablet (Zoloft) 25 mg PO BEDTIME 07/16/22 11/12/23 topiramate 100 mg tablet (Topamax) 100 mg PO BEDTIME 07/16/22 11/12/23 zolpidem 5 mg tablet (Ambien) 5 mg PO BEDTIME 07/16/22 11/12/23 Previous Rx's Medication Instructions Recorded Diabetic Shoes with 3 Pairs of #1 ea 01/28/22 Inserts methocarbamol 1,000 mg tablet 1,000 mg PO TID spasm 30 days #60 06/10/23 tabs hydrocodone 7.5 mg-acetaminophen 1 tab PO BID PRN pain 30 days #60 11/24/23 325 mg tablet tabs Allergies Allergy/AdvReac Type Severity Reaction Status Date / Time venom-wasp Allergy Severe ALGY-Anaphy Verified 07/10/24 11:24 laxis Review of Systems 2 Const: Denies: fever(s), chills, body aches or change in appetite ENMT: Denies: throat pain or dental pain Card: Denies: chest pain Resp: Reports: dyspnea GI: Denies: abdominal pain, nausea, vomiting or diarrhea Musc: Reports: extremity swelling; Denies: neck pain or back pain Skin/Breast: Denies: rash Neuro: Denies: headache(s) PFSH ED 2 PFSH: Medical History Acute exacerbation of congestive heart failure Transaminitis RHONDA (acute kidney injury) Acute respiratory failure with hypoxia and hypercapnia Right-sided carotid artery disease Diabetic peripheral neuropathy associated with type 2 diabetes mellitus Diastolic CHF 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 Lumbar disc disease with radiculopathy Degenerative disc disease Type 2 diabetes mellitus Surgical History No pertinent past surgical history Family History Other CAD (coronary artery disease) Diabetes Social History Smoking and tobacco/nicotine status: never used tobacco/nicotine Second hand smoke exposure: No Alcohol intake: never Substance/Drug Use: never Caregiver/support person: Yes Lives independently: Yes Household members: caregiver Housing: House Physical Exam 2 Const: COMMON NORMALS: patient oriented x3 HENMT: COMMON NORMALS: normocephalic and atraumatic HEAD & SCALP: n ormocephalic and atraumatic Eye: COMMON NORMALS: conjunctivae normal CONJUNCTIVA: Yes conjunctivae normal Neck/C-Spine: COMMON NORMALS: full ROM and supple Chest: COMMONS NORMALS: normal inspection of the chest Resp: COMMON NORMALS: No retractions, No use of accessory muscles and clear to auscultation bilaterally AUSCULTATION: clear to auscultation bilaterally Cardio: COMMON NORMALS: regular rate, regular rhythm and No murmurs present (Cardio) RATE: regular rate RHYTHM: regular rhythm GI: COMMON NORMALS: Normal to inspection, nondistended, normoactive bowel sounds present, Soft to palpation, non-tender and no masses PALPATION: Yes Soft to palpation Extremity: COMMON NORMALS: full ROM NARRATIVE EXTREMITY EXAM: 2+ edema Neuro: COMMON NORMALS: patient oriented x3, moves all extremities and no focal motor deficits Psych: COMMON NORMALS: mental status grossly normal, Normal thought process present and cooperative THOUGHT PROCESS: Normal thought process present Skin: COMMON NORMALS: no rashes or lesions noted and no wounds GENERAL SKIN EXAM: no rashes or lesions noted Course 2 Vital Signs: Vital signs: Vital Signs Temperature 98.4 F 07/10/24 11:10 Pulse Rate 63 07/10/24 12:45 Respiratory Rate 20 H 07/10/24 11:57 Blood Pressure 157/79 07/10/24 11:57 Pulse Oximetry 99 07/10/24 12:45 Oxygen Delivery Me thod Nasal Cannula 07/10/24 12:45 Oxygen Flow Rate 5 07/10/24 11:57 Fraction of Inspir ed Oxygen 40 07/10/24 12:24 MDM - SOB/Dyspnea Medical Decision Making Patient presents here shortness of breath with hypercapnia and hypoxia patient was placed on BiPAP here and given her Lasix I spoke to the hospitalist will admit. Medical Records I reviewed the patient's medical records. Lab Data I reviewed the patient's lab results. 07/10/24 11:57 07/10/24 11:57 Labs/Radiology: Radiology Impressions Chest X-Ray 07/10/24 11:26 IMPRESSION: 1. Stable cardiomegaly with findings suggesting pulmonary vascular congestion. Superimposed infectious or inflammatory infiltrate is not entirely excluded. 2. No definitive pleural effusion or pneumothorax. Laboratory Results WBC 9.84 10^3/uL (3.29-11.43) 07/10/24 11:57 RBC 5.28 10^6/uL (3.85-5.65) 07/10/24 11:57 Hgb 12.30 g/dL (11.27-16.99) 07/10/24 11:57 Hct 45.1 % (36-47) 07/10/24 11:57 MCV 85.4 fl (85-98) 07/10/24 11:57 MCH 23.3 pg (27-33) L 07/10/24 11:57 MCHC 27.3 g/dL (30-55) L 07/10/24 11:57 RDW 18.0 % (12.1-15.1) H 07/10/24 11:57 Plt Count 248 10^3/cmm (157-399) 07/10/24 11:57 MPV 9.8 fL (7.4-10.4) 07/10/24 11:57 Neut % (Auto) 73.3 % 07/10/24 11:57 Lymph % (Auto) 12.7 % 07/10/24 11:57 [place] % (Auto) 11.5 % 07/10/24 11:57 Eos % (Auto) 1.8 % 07/10/24 11:57 Baso % (Auto) 0.3 % 07/10/24 11:57 Neut # (Auto) 7.21 10^3/uL (1.8-7.7) 07/10/24 11:57 Lymph # (Auto) 1.3 10^3/uL (0.8-4.8) 07/10/24 11:57 [place] # (Auto) 1.1 10^3/uL (0.2-0.9) H 07/10/24 11:57 Eos # (Auto) 0.2 10^3/uL (0.0-0.8) 07/10/24 11:57 Baso # (Auto) 0.0 10^3/uL (0.0-0.1) 07/10/24 11:57 Nucleated RBC % (auto) 0 % 07/10/24 11:57 Nucleated RBCs # 0.0 /100WBC 07/10/24 11:57 PT 14.60 SECONDS (12.1-14.9) 07/10/24 11:57 INR 1.07 (0.8-1.2) 07/10/24 11:57 Specimen Type Arterial 07/10/24 12:00 Sample Site Brachial, right 07/10/24 12:00 ABG pH 7.29 (7.35-7.45) L 07/10/24 12:00 ABG pCO2 74.8 mmHg (35-45) H* 07/10/24 12:00 ABG pO2 73.4 mmHg (80.0-100.0) L 07/10/24 12:00 ABG PO2/FiO2 Ratio 183 07/10/24 12:00 ABG HCO3 36.2 mmol/L (22-26) H 07/10/24 12:00 ABG Base Excess 7.2 mmol/L (-2.0-2.0) H 07/10/24 12:00 Av Test N/a 07/10/24 12:00 Hematocrit 38.5 % (37-47) 07/10/24 12:00 O2 Delivery Device Nc 07/10/24 12:00 O2 Liters/Min 5.0 % 07/10/24 12:00 FiO2 40.0 % 07/10/24 12:00 Shoemaker Apprentice ID Amh 07/10/24 12:00 Sodium 141 mmol/L (136-145) 07/10/24 11:57 Potassium 4.5 mmol/L (3.5-5.1) 07/10/24 11:57 Chloride 100 mmol/L (98-107) 07/10/24 11:57 Carbon Dioxide 31 mmol/L (22-29) H 07/10/24 11:57 Anion Gap 14.5 (5-19) 07/10/24 11:57 BUN 37 mg/dL (8-23) H 07/10/24 11:57 Creatinine 1.2 mg/dL (0.5-0.9) H 07/10/24 11:57 GFR Calculation 44.4 mL/min (90-130) L 07/10/24 11:57 Glucose 92 mg/dL (65-115) 07/10/24 11:57 Calculated Osmolality 300 mOsm/kg (285-295) H 07/10/24 11:57 Calcium 9.2 mg/dL (8.5-10.5) 07/10/24 11:57 Total Bilirubin 0.2 mg/dL (0.15-1.2) 07/10/24 11:57 AST 10 U/L (0-32) 07/10/24 11:57 ALT 13 U/L (0-33) 07/10/24 11:57 Alkaline Phosphatase 79 U/L (35-105) 07/10/24 11:57 NT-Pro-B Natriuret Pep 4992 pg/mL (0-125) H 07/10/24 11:57 Total Protein 6.4 g/dL (6.6-8.7) L 07/10/24 11:57 Albumin 3.4 g/dL (3.5-5.2) L 07/10/24 11:57 Globulin 3.0 g/dL (1.3-4.6) 07/10/24 11:57 All radiology interpretation(s) finalized by discharge EKG Data EKG 1: I personally reviewed and interpreted this EKG as follows: EKG Interpretation Date: 07/10/24 EKG interpretation time: 11:21 Interpretation: nsr hr [address] elevation qrs 91 qtc 407 Discharge Plan Discharge Patient Disposition: Admitted As Inpatient Clinical Impression: Acute exacerbation of congestive heart failure, Acute hypercapnic respiratory failure Condition: Stable Prescriptions: No Action atorvastatin 40 mg tablet 80 mg PO BEDTIME (DME) Diabetic Shoes with 3 Pairs of Inserts See Rx Instructions .Route .MEDSUPPLY Qty: 1 0RF Rx Instructions: As directed by HOME methocarbamol 1,000 mg tablet 1,000 mg PO TID 30 Days Qty: 60 2RF hydrocodone-acetaminophen 7.5-325 mg tablet 1 tab PO BID PRN (Reason: pain) 30 Days Qty: 60 0RF Rx Instructions: may fill 30 days after previous prescription acetaminophen [Tylenol] 325 mg Tablet 650 mg PO QID PRN (Reason: PAIN/FEVER) loperamide 2 mg Capsule 2 mg PO DAILY MDD 4 tabs PRN (Reason: Loose Stool) magnesium hydroxide [Milk of Magnesia] 400 mg/5 mL Suspension 15 ml PO DAILY PRN (Reason: Constipation) bisacodyl 10 mg Suppository 10 mg MI DAILY PRN (Reason: Constipation) Fleet Enema 19-7 gram/118 mL Enema 118 ml MI DAILY PRN (Reason: Constipation) Culturelle 10 billion cell Capsule 1 cap PO DAILY PRN (Reason: ANTIBIOTIC THERAPY) insulin lispro [Humalog KwikPen Insulin] 100 unit/mL insulin pen 35 unit SUBCUT TID@0630,1030,1530 lisinopril-hydrochlorothiazide 20-12.5 mg tablet 1 tab PO DAILY@0800 potassium chloride [Klor-Con 10] 10 mEq tablet extended release 10 meq PO DAILY@0800 aspirin [Adult Aspirin Regimen] 81 mg tablet,delayed release (DR/EC) 81 mg PO QAM dicyclomine 20 mg tablet 20 mg PO QID@08,12,16,20 furosemide [Lasix] 20 mg tablet 20 mg PO DAILY@0800 Farxiga 5 mg tablet 5 mg PO DAILY@0800 Miralax 17 gram Powder In Packet 17 g PO QAM Fosamax 70 mg Tablet 70 mg PO Q7D Protonix 40 mg Tablet,Delayed Release (Dr/Ec) 40 mg PO QAM Zoloft 25 mg Tablet 25 mg PO BEDTIME Ambien 5 mg Tablet 5 mg PO BEDTIME Topamax 100 mg Tablet 100 mg PO BEDTIME Vitamin D3 25 mcg (1,000 unit) Capsule 50 mcg PO QAM Tresiba FlexTouch U-200 200 unit/mL (3 mL) Insulin Pen 75 unit SUBCUT BID@06,20 Interlaminar Epidural Steroid See Rx Instructions .ROUTE .COMPLEX Rx Instructions: gets injection every 2 to 3 months Referrals: Anders Griffin DO [Primary Care Provider] - Coding Level of Care Code ED Product Trainer for Sarag Gillian
[2024-07-10] MEDS: FUROsemide 10 mg/mL SDV 10mL 80 MG IVP (11:53)
[2024-07-10 12:02] LABS: Basophils % 0.3 %; Eosinophils # 0.2 10^3/uL (0.0-0.8); Eosinophils % 1.8 %; Hematocrit 45.1 % (36-47); Lymphocytes # 1.3 10^3/uL (0.8-4.8); Lymphocytes % 12.7 %; Mean Corpuscular HGB Conc 27.3 g/dL (30-55); Mean Corpuscular Hemoglobin 23.3 pg (27-33); Mean Corpuscular Volume 85.4 fl (85-98); Mean Platelet Volume 9.8 fL (7.4-10.4); Monocytes # 1.1 10^3/uL (0.2-0.9); Monocytes % 11.5 %; Neutrophils # 7.21 10^3/uL (1.8-7.7); Neutrophils % 73.3 %; Nucleated Red Blood Cells % 0 %; Platelet Count 248 10^3/cmm (157-399); Red Blood Count 5.28 10^6/uL (3.85-5.65); White Blood Count 9.84 10^3/uL (3.29-11.43)
[2024-07-10 12:11] LABS: ABG PH Result 7.29 (7.35-7.45); Arterial Blood Gas Hematocrit 38.5 % (37-47); Base Excess ABG 7.2 mmol/L (-2.0-2.0); Blood Gas Sample Type Arterial; HCO3 ABG 36.2 mmol/L (22-26); PO2 ABG 73.4 mmHg (80.0-100.0)
[2024-07-10 12:13] LABS: ABG PCO2 74.8 mmHg (35-45); Blood Gas Operator Identificat AMH; Blood Gas Sample Site Brachial, right; Oxygen Device NC; PO2 FiO2 Ratio Arterial Blood 183
[2024-07-10 12:17] LABS: INR 1.07 (0.8-1.2)
[2024-07-10 12:30] LABS: Alanine Aminotransferase 13 U/L (0-33); Albumin Level 3.4 g/dL (3.5-5.2); Alkaline Phosphatase 79 U/L (35-105); Anion Gap 14.5 (5-19); Aspartate Amino Transferase 10 U/L (0-32); Blood Urea Nitrogen 37 mg/dL (8-23); Calcium 9.2 mg/dL (8.5-10.5); Carbon Dioxide 31 mmol/L (22-29); Chloride 100 mmol/L (98-107); Creatinine Clr Calc Pharmacy 48.2159; Glomerular Filtration Rate 44.4 mL/min (90-130); Glucose 92 mg/dL (65-115); NT Pro B Type Natriuretic Pept 4992 pg/mL (0-125); Osmolality Calculated 300 mOsm/kg (285-295); Potassium 4.5 mmol/L (3.5-5.1); Sodium 141 mmol/L (136-145); Total Bilirubin 0.2 mg/dL (0.15-1.2); Total Protein 6.4 g/dL (6.6-8.7)
--- NOTE | 2024-07-10 13:03 | PC.NURSE ---
PT has continued to rip off cardiac monitoring and throw into floor. pt educated about leaving on cardiac monitoring, pt states she will try. upon next rounds, pt had ripped off cardiac monitoring again.
--- NOTE | 2024-07-10 14:39 | PC.NURSE ---
pt states she wants the bipap off pt states take it off or I'll take it off , this nurse asked why and pt states that bipap is to hard and hurts face. pt educated on keeping bipap on and reasoning for bipap. pt rolled eyes and scoffed at this nurse. will continue to monitor and educate pt.
--- NOTE | 2024-07-10 14:59 | PM.HP ---
Providers/Chief Complaint Admitting Physician: Jones Taylor MD Primary Care Provider: Anders Griffin DO Chief Complaint: sob History of Present Illness Fatuma Ching is a 68 year old female with past medical history of diastolic heart failure, type 2 diabetes mellitus, chronic hypoxic respiratory failure usually on 4 L, hypertension was sent into the ER today from [facility] because of concerns for fluid overload. As per the patient she has been retaining more fluid and developing lower limb swelling which has been getting worse over last 1 week associated with difficulty in breathing getting worse on minimal exertion. Patient states she has been going back and forth to the restroom regularly to urinate and has been finding it difficult. Also complaining of mild orthopnea. States usually she is on 4 L but more recently she has been bumped up to 5 L. In the ER she was found to have hypoxic and hypercapnia hence was placed on BiPAP. On examination patient is on BiPAP, awake and alert. Denies any nausea, vomiting, headache. Denies any chest pain, episodes of fever or sick contacts. Review of Systems General: Reports: 10 or more systems reviewed and unremarkable except in HPI and below Const: Denies: fever(s), chills, body aches, change in appetite, change in weight, malaise, night sweats, diaphoresis, change in sleep pattern, daytime sleepiness or snoring Eyes: Denies: change in vision, blurry vision, photophobia, eye discomfort or eye discharge ENMT: Denies: throat pain, enlarged tonsils, hoarseness, mouth pain, oral sores, dry mouth, tinnitus, nasal congestion or post nasal drip Card: Denies: chest pain, palpitations, irregular heart rhythm, edema, swelling of feet/ankles, lightheadedness, syncope, pre-syncope, dyspnea on exertion, orthopnea, leg pain with exertion or acrocyanosis Resp: Denies: dyspnea, productive cough, non-productive cough, wheezing, stridor, pain on inspiration, change in phlegm color, hemoptysis or chest congestion GI: Denies: abdominal pain, nausea, vomiting, hematemesis, coffee ground emesis, dysphagia, heartburn, diarrhea, constipation, bloating, GI cramping, change in bowel habits, pain on defecation, hematochezia or melena : Denies: flank pain, dysuria, urinary frequency, urinary urgency, urinary hesitancy, nocturia or hematuria Musc: Denies: neck pain, back pain, extremity pain, joint pain, joint swelling, joint redness, joint stiffness or limited range of motion Neuro: Denies: headache(s), numbness in extremities, weakness in extremities, sensory changes, lack of coordination, difficulty walking, frequent falls, dizziness, vertigo, confusion, Slurred speech present, difficulty communicating thoughts or seizure-like activity Psych: Denies: anxiety, depression, mood swings, panic attacks, hopelessness or irritability Endo: Denies: polyuria, polydipsia, tired all the time, cold intolerance, excessive sweating, flushing or heat intolerance Blayne/Lymph: Denies: easy bruising or easy bleeding All/Imm: Denies: tongue swelling, facial swelling or acute wheezing Medications/Allergies Home Medications Medication Instructions Recorded Confirmed Last Taken Type atorvastatin 40 mg tablet 80 mg PO BEDTIME 11/08/20 07/10/24 07/09/24 History Lactobacillus rhamnosus GG 10 1 cap PO DAILY PRN ANTIBIOTIC 12/03/20 07/10/24 07/10/24 07:45 History billion cell capsule (Culturelle) THERAPY acetaminophen 325 mg tablet 650 mg PO QID PRN PAIN/FEVER 12/03/20 07/10/24 Unknown History (Tylenol) aspirin 81 mg tablet,delayed 81 mg PO QAM 12/03/20 07/10/24 07/10/24 07:30 History release (Adult Aspirin Regimen) bisacodyl 10 mg rectal suppository 10 mg NV DAILY PRN Constipation 12/03/20 07/10/24 Unknown History dapagliflozin propanediol 5 mg 5 mg PO DAILY@0800 12/03/20 07/10/24 07/10/24 History tablet (Farxiga) dicyclomine 20 mg tablet 20 mg PO QID@08,12,16,20 12/03/20 07/10/24 07/10/24 07:30 History insulin lispro 100 unit/mL 35 unit SUBCUT TID@0630,1030,1530 12/03/20 07/10/24 07/10/24 07:00 History subcutaneous pen (Humalog KwikPen (U-100) Insulin) lisinopril 20 1 tab PO DAILY@0800 0607/10/24 07/10/24 07:45 History mg-hydrochlorothiazide 12.5 mg tablet magnesium hydroxide 400 mg/5 mL 15 ml PO DAILY PRN Constipation 12/03/20 07/10/24 07/10/24 08:00 History oral suspension (Milk of Magnesia) sodium phosphates 19 gram-7 118 ml NV DAILY PRN Constipation 12/03/20 07/10/24 Unknown History gram/118 mL enema (Fleet Enema) Diabetic Shoes with 3 Pairs of #1 ea 01/28/22 07/10/24 Unknown Rx Inserts cholecalciferol (vitamin D3) 25 50 mcg PO QAM 07/16/22 07/10/24 07/09/24 07:30 History mcg (1,000 unit) capsule (Vitamin D3) insulin degludec 200 unit/mL (3 75 unit SUBCUT BID@,07/16/22 07/10/24 07/10/24 07:45 History mL) subcutaneous pen (Tresiba FlexTouch U-200 insulin) pantoprazole 40 mg tablet,delayed 40 mg PO QAM 07/16/22 07/10/24 07/10/24 07:30 History release (Protonix) polyethylene glycol 3350 17 gram 17 g PO QAM 07/16/22 07/10/24 07/15/22 History oral powder packet (Miralax) sertraline 25 mg tablet (Zoloft) 25 mg PO BEDTIME 07/16/22 07/10/24 07/09/24 08:00 History topiramate 100 mg tablet (Topamax) 100 mg PO BEDTIME 07/16/22 07/10/24 07/09/24 07:45 History zolpidem 5 mg tablet (Ambien) 5 mg PO BEDTIME 07/16/22 07/10/24 07/09/24 08:00 History methocarbamol 1,000 mg tablet 1,000 mg PO TID spasm 30 days #60 06/10/23 07/10/24 07/10/24 07:35 Rx tabs hydrocodone 7.5 mg-acetaminophen 1 tab PO BID PRN pain 30 days #60 11/24/23 07/10/24 Unknown Rx 325 mg tablet tabs furosemide 40 mg tablet 40 mg PO DAILY 07/10/24 07/10/24 07/10/24 07:00 History guaifenesin 1,200 mg tablet, 1,200 mg PO BID PRN Cough 07/10/24 07/10/24 Unknown History extended release 12 hr (Mucinex) potassium chloride 20 mEq 20 meq PO DAILY 07/10/24 07/10/24 07/10/24 07:30 History tablet,extended release Allergies Allergy/AdvReac Type Severity Reaction Status Date / Time venom-wasp Allergy Severe ALGY-Anaphy Verified 07/10/24 11:24 laxis PFSH Acute PFSH: Medical History (Updated 07/10/24 @ 16:06 by Jones Taylor MD) RHONDA (acute kidney injury) Diastolic CHF Type 2 diabetes mellitus Acute exacerbation of congestive heart failure Transaminitis Acute respiratory failure with hypoxia and hypercapnia Right-sided carotid artery disease Diabetic peripheral neuropathy associated with type 2 diabetes mellitus 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 Lumbar disc disease with radiculopathy Degenerative disc disease Surgical History No pertinent past surgical history Family History Other CAD (coronary artery disease) Diabetes Social History Smoking and tobacco/nicotine status: never used tobacco/nicotine Second hand smoke exposure: No Alcohol intake: never Substance/Drug Use: never Caregiver/support person: Yes Lives independently: Yes Household members: caregiver Housing: House Vitals/I&O/Wt Last Vital Signs Temp 98.4 F 07/10/24 11:10 Pulse 61 07/10/24 14:30 Resp 20 H 07/10/24 14:25 BP 150/92 07/10/24 14:30 Pulse Ox 98 07/10/24 14:30 O2 Del Method BiPAP 07/10/24 14:30 O2 Flow Rate 5 07/10/24 11:57 FiO2 40 07/10/24 13:38 Weight last 48 hrs Weight 92.986 kg Physical Exam Narrative: General: No acute distress, AO x3, on BiPAP ventilation HEENT: PERRLA, pupils bilaterally equal and reactive Chest: Bilateral bronchial breath sounds all over lung [place] with fine crackles bilaterally in lower zone CVS: S1-S2 regular, no murmurs, no tachycardia, no gallops, no rubs Abdomen: Soft, nontender, no organomegaly, bowel sounds present Neuro: No focal deficits, no facial deformity, AO x3, power 5/5 in all limbs Extremity: Bilateral 2+ pitting edema Data 07/10/24 11:57 07/10/24 11:57 A&P Assessment and plan (1) Acute and chronic respiratory failure, unspecified whether with hypoxia or hypercapnia: (2) Diastolic CHF: (3) Acute exacerbation of congestive heart failure: (4) RHONDA (acute kidney injury): (5) Type 2 diabetes mellitus: Qualifiers: Diabetes mellitus complication status: with hyperglycemia Diabetes mellitus 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 Currently on 5 L requiring BiPAP ventilation. Found to be hypercapnic with respiratory acidosis. Repeat ABG. Transition to nasal cannula when possible. Oxygen supplementation keeping saturation over 90%. BiPAP nightly otherwise. Check D-dimer, sputum culture, bacterial antigen, respiratory viral panel. Plan for CT chest versus CTA depending on D-dimer. Fluid restriction to less than 1500 cc. Received 80 mg of IV Lasix in the ER. Nava catheterization. Will repeat further Lasix in a.m. depending on urine output. Hold off on IV antibiotics for now. Will plan for IV antibiotics depending on result of CT chest to rule out consolidation. No leukocytosis currently. Pulmicort twice daily, DuoNeb every 6 hour. Hold off on IV steroids for now. Acute congestive heart failure: History of diastolic heart failure in the past. Check troponin cycled. Last echocardiogram from June 2022 showed an EF of 55 to 60%, grade 1 diastolic dysfunction, mild TR. Lasix as above. RHONDA: Baseline creatinine around 0.9. Currently 1.2. Most likely in setting of CRS. Nava catheterization. Medical reconciliation done for nephrotoxic drugs. Hold off on home dose of lisinopril/hydrochlorothiazide for now. Monitor daily. Monitor for [place] abnormality Type 2 diabetes mellitus: Last A1c from 2020 more than 12. Repeat A1c. Patient takes Lantus 75 twice daily, Humalog 35 3 times daily. Continue with home dose of Lantus. Sliding scale before meals and at bedtime at moderate dose protocol. Continue other chronic medications including aspirin, statin, hydrocodone as needed, Zoloft, Topamax. CODE STATUS: DNR/DNI as per last hospitalization, paperwork from [facility]. Cardiac carb consistent diet Protonix for PUD prophylaxis Heparin 5000 every 12 hourly for DVT prophylaxis Attestations Medical Necessity Statement*: Admission for more than 2 midnights for management of acute on chronic hypoxic and hypercapnic respiratory failure in setting of congestive heart failure, respiratory acidosis, RHONDA Diagnoses Acute and chronic respiratory failure, unspecified whether with hypoxia or hypercapnia J96.20 Diastolic CHF I50.30 Acute exacerbation of congestive heart failure I50.9 RHONDA (acute kidney injury) N17.9 Type 2 diabetes mellitus with hyperglycemia, with long-term current use of insulin E11.65; Z79.4 Diabetes mellitus complication status: with hyperglycemia Diabetes mellitus penitentiary insulin use: with penitentiary use Respiratory acidosis E87.29
[2024-07-10 15:14] LABS: D Dimer 0.73 ug/mLFEU (0-0.59)
[2024-07-10 15:27] LABS: Procalcitonin 0.14 ng/mL (0-0.5); Thyroid Stimulating Hormone 2.88 uIU/mL (0.27-4.20)
[2024-07-10 15:37] LABS: Iron 24 ug/dL (37-145); Percent Saturation 8.2 % (20-50); Total Iron Binding Capacity 292 mcg/dl; Unsaturated Iron Binding 268 ug/dL (112-347)
[2024-07-10 15:56] LABS: Bilirubin Urine Negative (Negative); Blood Urine Negative (Negative); Glucose Urine UA Negative (Normal); Ketones Urine Negative (Negative); Leukocyte Esterase Urine Trace (Negative); Nitrate Urine Negative (Negative); Protein Urine 1+ (Negative); Specific Gravity, Urine 1.008 (1.005-1.030); Urine Appearance Clear (CLEAR); Urine Color Yellow (Yellow); Urobilinogen Urine 0.2 mg/dL (Negative)
[2024-07-10 15:59] LABS: Add Urine Microscopic? YES; Bacteria Urine 4+ /hpf; Hyaline Casts Urine 3.71 /lpf; RBC Urine 0-2 /hpf (0-2); Squamous Epithelial Cell Urine 0-5 /hpf (0-5)
[2024-07-10 16:00] LABS: Add Urine Culture? Yes
[2024-07-10 16:00] LABS: ABG PH Result 7.33 (7.35-7.45); Alveolar-Arterial Oxygen Gradi 13.7 mmHg (5-10); Base Excess ABG 8.4 mmol/L (-2.0-2.0); Blood Gas Allen Test Pos; Blood Gas Operator Identificat AMH; Blood Gas Sample Site Radial, right; Blood Gas Sample Type Arterial; Carboxyhemoglobin 1.6 %THgb (0.4-20.1); HCO3 ABG 36.9 mmol/L (22-26); HGB O2 Sat 95.1 % (95-100); Ionized Calcium Level - ABG 1.2 mmol/L (1.1-1.4); Oxygen Device BIPAP; Oxygen Saturation ABG 97.6; PO2 ABG 94.4 mmHg (80.0-100.0); PO2 FiO2 Ratio Arterial Blood 236; Potassium Level - ABG 4.3 mmol/L (3.5-5.0); Total Hemoglobin 12.7 g/dL (12-16)
[2024-07-10 16:02] LABS: ABG PCO2 70.7 mmHg (35-45)
--- NOTE | 2024-07-10 16:05 | CTR_ITS ---
PROCEDURE INFORMATION: Exam: CT Chest Without Contrast; Diagnostic Exam date and time: 07/10/2024 4:36 PM Age: 68 years old Clinical indication: Shortness of breath; Additional info: Respiratory failure TECHNIQUE: Imaging protocol: Diagnostic computed tomography of the chest without contrast. Radiation optimization: All CT scans at this facility use at least one of these dose optimization techniques: automated exposure control; mA and/or kV adjustment per patient size (includes targeted exams where dose is matched to clinical indication); or iterative reconstruction. COMPARISON: CT angio chest w abd pel w con 07/16/2022 12:19 PM RADIATION DOSE METRICS: Total DLP (mGy-cm): 657.15 FINDINGS: Lungs: Left basilar atelectasis. Pleural spaces: Small right pleural effusion with overlying compressive atelectasis. Heart: Mild cardiomegaly. Coronary arteries: Mild coronary artery calcification. Lymph nodes: Scattered prominent mediastinal and axillary lymph nodes. Vasculature: Unremarkable. No aortic aneurysm. Pancreas: Mild parenchymal atrophy of the pancreas. Bones/joints: Multilevel degenerative changes of the thoracic spine. Soft tissues: Nodular soft tissue density in the bilateral breast soft tissues. CT/CT chest wo con [id number] IMPRESSION: 1. Small right pleural effusion with overlying compressive atelectasis. Mild left basilar atelectasis. No focal consolidation or pneumothorax. 2. Cardiomegaly. Mild coronary artery calcification. 3. Nodular soft tissue density in the bilateral breast soft tissues. Recommend mammographic correlation.
[2024-07-10 16:33] LABS: Potassium, Radom Urine 24 mmol/L; Urine Random Chloride 132 mmol/L; Urine Random Sodium 116 mmol/L
[2024-07-10] MEDS: morphine 4 mg/mL SDV 1 mL IVP (16:52)
[2024-07-10 17:18] LABS: Vitamin B12 314 pg/mL (232-1245)
[2024-07-10 17:38] LABS: Adenovirus Not Detected (NOT DETECT); Chlamydia Pneumoniae Not Detected (NOT DETECT); Coronavirus 229E,HKU1,NL63,OC4 Not Detected (NOT DETECT); Human Metapneumovirus Not Detected (NOT DETECT); Human Rhinovirus/Enterovirus Not Detected (NOT DETECT); Influenza A Not Detected (NOT DETECT); Influenza A H1 Not Detected (NOT DETECT); Influenza A H1-2009 Not Detected (NOT DETECT); Influenza A H3 Not Detected (NOT DETECT); Influenza B Not Detected (NOT DETECT); Mycoplasma Pneumoniae Not Detected (NOT DETECT); Parainfluenza Virus Type 1 Not Detected (NOT DETECT); Parainfluenza Virus Type 2 Not Detected (NOT DETECT); Parainfluenza Virus Type 3 Not Detected (NOT DETECT); Parainfluenza Virus Type 4 Not Detected (NOT DETECT); Respiratory Syncytial Virus A Not Detected (NOT DETECT); Respiratory Syncytial Virus B Not Detected (NOT DETECT); SARS-COV-2 Not Detected (NOT DETECT)
[2024-07-10] MEDS: heparin 5,000 unit/mL INJ 1 mL 5000 UNIT SUBCUT (18:03)
[2024-07-10 18:07] LABS: Glucose Point of Care 78 mg/dL (70-110)
--- NOTE | 2024-07-10 18:20 | PC.NURSE ---
spoke to hospitalist in regards to pt blood sugar poc being 78, Dr. coulterayed pt to have apple juice and the cardiac consistency diet.
[2024-07-10 18:24] LABS: MRSA PCR OZH (swab) NOT DETECTED (Not Detecte)
[2024-07-10] MEDS: budesonide 0.5 mg/2 mL Neb INHALATION (19:41)
[2024-07-10] MEDS: ipratropium-albuterol 3 mL Neb INHALATION (19:41)
[2024-07-10 20:08] LABS: Glucose Point of Care 136 mg/dL (70-110)
[2024-07-10] MEDS: sertraline 50 mg Tablet 25 MG PO (20:12)
[2024-07-10] MEDS: atorvastatin 40 mg Tablet 80 MG PO (20:13)
[2024-07-10] MEDS: insulin glargine 100 units/1 mL 50 UNIT SUBCUT (20:15)
[2024-07-10] MEDS: topiramate 100 mg Tablet PO (21:45)
[2024-07-10 22:12] LABS: Glucose Point of Care 144 mg/dL (70-110)
--- NOTE | 2024-07-10 22:27 | PC.NURSE ---
spoke to jonathan mullins in regards to pt's 0600 lantus that pharmacy gave to this nurse this evening in regards to if lantus needs to be refrigerated, jonathan mullins states it will be fine out at room temp.
--- NOTE | 2024-07-10 23:02 | PC.NURSE ---
pt report called to [facility] at 2300. Room not ready. will call when ready.
[2024-07-11] VITALS (17 sets, daily range): BP systolic 131–163; BP diastolic 62–80; PULSE 60–76; RESP 16–27; TEMP 36.2–36.9; O2SAT 93–98
[2024-07-11] MEDS: heparin 5,000 unit/mL INJ 1 mL 5000 UNIT SUBCUT ×3 (00:43→18:30)
[2024-07-11 03:30] LABS: Basophils % 0.4 %; Eosinophils # 0.2 10^3/uL (0.0-0.8); Eosinophils % 1.6 %; Hematocrit 44.1 % (36-47); Lymphocytes # 1.4 10^3/uL (0.8-4.8); Lymphocytes % 13.9 %; Mean Corpuscular HGB Conc 27.7 g/dL (30-55); Mean Corpuscular Hemoglobin 23.5 pg (27-33); Mean Corpuscular Volume 84.8 fl (85-98); Mean Platelet Volume 9.7 fL (7.4-10.4); Monocytes # 1.2 10^3/uL (0.2-0.9); Monocytes % 11.5 %; Neutrophils # 7.38 10^3/uL (1.8-7.7); Neutrophils % 72.3 %; Nucleated Red Blood Cells % 0 %; Platelet Count 239 10^3/cmm (157-399); Red Cell Distribution Width 18.1 % (12.1-15.1)
[2024-07-11] MEDS: ipratropium-albuterol 3 mL Neb INHALATION ×4 (03:32→19:51)
[2024-07-11 04:16] LABS: Estmated Average Glucose 177; Hemoglobin A1C 7.8 % (4.0-6.0)
[2024-07-11 04:21] LABS: Alanine Aminotransferase 12 U/L (0-33); Albumin Level 3.5 g/dL (3.5-5.2); Alkaline Phosphatase 76 U/L (35-105); Anion Gap 14.1 (5-19); Aspartate Amino Transferase 12 U/L (0-32); Blood Urea Nitrogen 42 mg/dL (8-23); Calcium 9.6 mg/dL (8.5-10.5); Carbon Dioxide 34 mmol/L (22-29); Chloride 102 mmol/L (98-107); Chol HDL Ratio 3.34 mg/dL (0.0-4.40); Cholesterol 137 mg/dL (0-200); Creatinine Clr Calc Pharmacy 48.2159; Glomerular Filtration Rate 44.4 mL/min (90-130); Glucose 47 mg/dL (65-115); HDL Cholesterol 41 mg/dL (60-100); LDL Cholesterol Calculated 75 mg/dL (50-129); LDL HDL Ratio 1.83 RATIO (0.00-3.22); Magnesium 2.2 mg/dL (1.7-2.3); Osmolality Calculated 310 mOsm/kg (285-295); Potassium 4.1 mmol/L (3.5-5.1); Sodium 146 mmol/L (136-145); Total Bilirubin 0.3 mg/dL (0.15-1.2); Total Protein 6.5 g/dL (6.6-8.7); Triglycerides 105 mg/dL (0-150)
[2024-07-11 04:24] LABS: Procalcitonin 0.13 ng/mL (0-0.5)
[2024-07-11 04:37] LABS: Folate Level 17.5 ng/mL (4.8-37.3)
[2024-07-11] MEDS: aspirin 81 mg EC Tablet PO (05:44)
[2024-07-11] MEDS: pantoprazole DR 40 mg Tablet PO (05:44)
--- NOTE | 2024-07-11 05:46 | PC.NURSE ---
glucose 47 per am labs, lantus held, orange juice with sugar given, patient alert and oriented, will recheck glucose
[2024-07-11 06:38] LABS: Glucose Point of Care 135 mg/dL (70-110)
[2024-07-11] MEDS: budesonide 0.5 mg/2 mL Neb INHALATION ×2 (08:12→19:51)
[2024-07-11 11:43] LABS: Glucose Point of Care 197 mg/dL (70-110)
[2024-07-11] MEDS: insulin lispro 100 unit/1 mL SUBCUT (12:22)
[2024-07-11 16:43] LABS: Glucose Point of Care 143 mg/dL (70-110)
--- NOTE | 2024-07-11 18:00 | P.PN_ITS ---
Subjective 2 Subjective: Patient admitted yesterday for acute on chronic respiratory failure with hypercapnia. Patient states her breathing is much better today and she is on her baseline oxygen. Vitals/I&O/Wt Last Vital Signs Temp 97.6 F 07/11/24 16:00 Pulse 70 07/11/24 16:00 Resp 23 H 07/11/24 16:00 BP 131/80 07/11/24 16:00 Pulse Ox 94 07/11/24 16:00 O2 Del Method Nasal Cannula 07/11/24 16:00 O2 Flow Rate 3 07/11/24 14:51 FiO2 40 07/10/24 23:36 07/11/24 07/11/24 07/11/24 06:59 14:59 22:59 Intake Total 360 / 360 Output Total 350 / 350 800 / 800 Balance -350 / -350 360 / 360 -800 / -440 Weight last 48 hrs Weight 114.804 kg Weight 92.986 kg Physical Exam 2 Narrative: No acute distress patient is oriented to self Heart is regular normal S1-S2 without murmurs clicks gallops or rubs. Lungs diminished in the lower lung [place] otherwise no wheezes rales or rhonchi Abdomen soft nontender nondistended positive obesity no hepatosplenomegaly Extremities +1-2 edema to the midshin Urinary Catheter Management: Nava: Cath Placed During This Visit: yes Reason for Continuing Indwelling Catheter: Other Urinary Catheter Date of Insertion: 07/10/24 Urinary Catheter Time of Insertion: 15:20 Data 07/11/24 02:32 07/11/24 02:32 Micro: Microbiology 07/10/24 15:43 Blood Culture - Preliminary Blood NEGATIVE TO DATE 07/10/24 15:40 Blood Culture - Preliminary Blood NEGATIVE TO DATE 07/10/24 15:37 Bacterial Antigens - Final Urine Kidney CT Chest: Radiologist's impression: MPRESSION: 1. Small right pleural effusion with overlying compressive atelectasis. Mild left basilar atelectasis. No focal consolidation or pneumothorax. 2. Cardiomegaly. Mild coronary artery calcification. 3. Nodular soft tissue density in the bilateral breast soft tissues. Recommend mammographic correlatio A&P Assessment and plan (1) Acute and chronic respiratory failure, unspecified whether with hypoxia or hypercapnia: (2) Diastolic CHF: (3) Acute exacerbation of congestive heart failure: (4) RHONDA (acute kidney injury): (5) Type 2 diabetes mellitus: Qualifiers: Diabetes mellitus nursing home insulin use: with nursing home use Diabetes mellitus complication status: with hyperglycemia Qualified Code(s): E11.65 - Type 2 diabetes mellitus with hyperglycemia; Z79.4 - [facility] (current) use of insulin (6) Respiratory acidosis: Plan Acute on chronic hypoxic and hypercapnic respiratory failure: Chronically on 4 L. Found to be hypercapnic with respiratory acidosis. Patient is now back to baseline 4 L. I suspect patient had dyspnea and turned up her oxygen becoming hypercapnic. Appears that her respiratory failure is from CHF I have doubled her dose of Lasix to Lasix 40 twice daily 0600, 1400 It is reasonable consider repeat echocardiogram however since patient is back to baseline we will hold off at this time Pulmicort twice daily, DuoNeb every 6 hour. Hold off on IV steroids for now. Acute congestive heart failure: History of diastolic heart failure in the past. Lasix as above RHONDA: Baseline creatinine around 0.9. Currently 1.2. This may be new normal with necessary diuresis. Continue Nava catheterization. lisinopril/hydrochlorothiazide on hold for CHF. Monitor daily. Monitor for [place] abnormality Type 2 diabetes mellitus: A1c 7.8 Patient takes Lantus 75 twice daily, Humalog 35 3 times daily. Continue with home dose of Lantus. Sliding scale before meals and at bedtime at moderate dose protocol. Continue other chronic medications including aspirin, statin, hydrocodone as needed, Zoloft, Topamax. CODE STATUS: DNR/DNI as per last hospitalization, paperwork from [place]. Cardiac carb consistent diet Heparin 5000 every 12 hourly for DVT prophylaxis PLAN: Discharge back to facility tomorrow on a higher Lasix dose. She describes to me that she gets weighed every other day and will increase Lasix as appropriate however I am not certain this is being done will order appropriately on discharge. Attestations 2 Medical Necessity Statement*: Patient treated aggressively with IV Lasix for CHF must monitor electrolytes for possible arrhythmias during this treatment Coding Level of Care Code Acute Code for [facility] Fwd Diagnoses Acute and chronic respiratory failure, unspecified whether with hypoxia or hypercapnia J96.20 Diastolic CHF I50.30 Acute exacerbation of congestive heart failure I50.9 RHONDA (acute kidney injury) N17.9 Type 2 diabetes mellitus with hyperglycemia, with long-term current use of insulin E11.65; Z79.4 Diabetes mellitus nursing home insulin use: with technician terminal and repeater use Diabetes mellitus complication status: with hyperglycemia Respiratory acidosis E87.29
[2024-07-11] MEDS: atorvastatin 40 mg Tablet 80 MG PO (20:59)
[2024-07-11] MEDS: sertraline 50 mg Tablet 25 MG PO (20:59)
[2024-07-11] MEDS: topiramate 100 mg Tablet PO (20:59)
[2024-07-11 21:18] LABS: Glucose Point of Care 186 mg/dL (70-110)
--- NOTE | 2024-07-11 21:27 | PC.NURSE ---
Spoke with regarding patients lantus dose due tonight. The patients current accucheck was 186. Yesterday night she was 144 accucheck and recieived 50 units of lantus which is ordered BID. With 2am labs her blood glucose was 47. ordered to change lantus to 20units BID, starting tonight.
[2024-07-11] MEDS: insulin glargine 100 units/1 mL 20 UNIT SUBCUT (21:50)
[2024-07-12] VITALS (12 sets, daily range): BP systolic 135–170; BP diastolic 64–79; PULSE 65–74; RESP 17–26; TEMP 36.6–37; O2SAT 91–97
[2024-07-12] MEDS: heparin 5,000 unit/mL INJ 1 mL 5000 UNIT SUBCUT ×3 (00:32→17:19)
[2024-07-12] MEDS: ipratropium-albuterol 3 mL Neb INHALATION ×4 (02:47→21:25)
[2024-07-12 03:21] LABS: Anion Gap 10.7 (5-19); Blood Urea Nitrogen 33 mg/dL (8-23); Calcium 9.3 mg/dL (8.5-10.5); Carbon Dioxide 34 mmol/L (22-29); Chloride 100 mmol/L (98-107); Glomerular Filtration Rate 44.4 mL/min (90-130); Glucose 88 mg/dL (65-115); Magnesium 2.2 mg/dL (1.7-2.3); Osmolality Calculated 299 mOsm/kg (285-295); Potassium 3.7 mmol/L (3.5-5.1); Sodium 141 mmol/L (136-145)
[2024-07-12 06:25] LABS: Glucose Point of Care 62 mg/dL (70-110)
--- NOTE | 2024-07-12 06:37 | PC.NURSE ---
Patients blood glucose was 62 this morning with accucheck. The patient was alert and had juice and a snack. The nurse notified as the patient is due for 20units of Lantus this morning. said hold lantus dose this morning.
[2024-07-12] MEDS: pantoprazole DR 40 mg Tablet PO (06:46)
[2024-07-12] MEDS: aspirin 81 mg EC Tablet PO (06:46)
[2024-07-12] MEDS: FUROsemide 10 mg/mL SDV 4mL 40 MG IVP ×2 (06:59→14:56)
[2024-07-12] MEDS: budesonide 0.5 mg/2 mL Neb INHALATION ×2 (08:13→21:25)
[2024-07-12 11:31] LABS: Glucose Point of Care 223 mg/dL (70-110)
[2024-07-12] MEDS: insulin lispro 100 unit/1 mL SUBCUT ×3 (12:12→21:08)
[2024-07-12 14:27] LABS: C.Diff PCR (Lab) NEGATIVE (Negative)
--- NOTE | 2024-07-12 15:16 | PM.PN ---
Subjective Subjective: Patient not feeling well today. Has had multiple episodes of diarrhea and just feels overall weak. Vitals/I&O/Wt Last Vital Signs Temp 97.9 F 07/12/24 11:21 Pulse 68 07/12/24 14:41 Resp 18 07/12/24 14:41 BP 170/77 07/12/24 11:21 Pulse Ox 93 07/12/24 14:41 O2 Del Method Nasal Cannula 07/12/24 14:41 O2 Flow Rate 4 07/12/24 14:41 FiO2 40 07/10/24 23:36 07/12/24 07/12/24 07/12/24 06:59 14:59 22:59 Intake Total 0 / 700 480 / 480 Output Total 1000 / 1800 650 / 650 Balance -1000 / -1100 -170 / -170 Weight last 48 hrs Weight 114.804 kg Weight 114.804 kg Physical Exam Narrative: Appears ill today and weak. Heart is regular normal S1-S2 without murmurs clicks gallops or rubs. Lungs diminished in the lower lung [place] otherwise no wheezes rales or rhonchi Abdomen soft nontender nondistended positive obesity no hepatosplenomegaly Extremities +1-2 edema to the midshin Urinary Catheter Management: Nava: Cath Placed During This Visit: yes Reason for Continuing Indwelling Catheter: Other Urinary Catheter Date of Insertion: 07/10/24 Urinary Catheter Time of Insertion: 15:20 Data 07/11/24 02:32 07/12/24 02:35 Micro: Microbiology 07/10/24 15:37 Urine Culture - Preliminary Urine,Clean Catch Gram Negative Rods 07/10/24 15:43 Blood Culture - Preliminary Blood NEGATIVE TO DATE 07/10/24 15:40 Blood Culture - Preliminary Blood NEGATIVE TO DATE A&P Assessment and plan (1) Acute and chronic respiratory failure, unspecified whether with hypoxia or hypercapnia: (2) Diastolic CHF: (3) Acute exacerbation of congestive heart failure: Acute on chronic hypoxic and hypercapnic respiratory failure: Chronically on 4 L. Found to be hypercapnic with respiratory acidosis. Patient is now back to baseline 4 L. I suspect patient had dyspnea and turned up her oxygen becoming hypercapnic. Appears that her respiratory failure is from CHF I have doubled her dose of Lasix to Lasix 40 twice daily 0600, 1400 It is reasonable consider repeat echocardiogram however since patient is back to baseline we will hold off at this time (4) RHONDA (acute kidney injury): RHONDA: Baseline creatinine around 0.9. Currently 1.2. This may be new normal with necessary diuresis. Continue Nava catheterization. lisinopril/hydrochlorothiazide on hold for CHF. Monitor daily. Monitor for [place] abnormality (5) Type 2 diabetes mellitus: Patient has had an episode of hypoglycemia. Even though we have her on a lower dose of insulin here at the hospital she must be eating less here than she does at facility. Her insulin in the hospital has been decreased further Type 2 diabetes mellitus: A1c 7.8 Patient takes Lantus 75 twice daily, Humalog 35 3 times daily. Continue with home dose of Lantus. Sliding scale before meals and at bedtime at moderate dose protocol. 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 The culture is growing gram-negative rods. Started on Rocephin today (8) Diarrhea: C. difficile was negative. Imodium as needed Plan Continue other chronic medications including aspirin, statin, hydrocodone as needed, Zoloft, Topamax. CODE STATUS: DNR/DNI as per last hospitalization, paperwork from [place]. Cardiac carb consistent diet Heparin 5000 every 12 hourly for DVT prophylaxis Attestations Medical Necessity Statement*: Patient treated aggressively with IV Lasix for CHF must monitor electrolytes for possible arrhythmias during this treatment. Also for treatment for UTI await final cultures. Coding Level of Care Code Acute Code for [facility] Fwd Diagnoses Acute and chronic respiratory failure, unspecified whether with hypoxia or hypercapnia J96.20 Diastolic CHF I50.30 Acute exacerbation of congestive heart failure I50.9 RHONDA (acute kidney injury) N17.9 Type 2 diabetes mellitus with hyperglycemia, with long-term current use of insulin E11.65; Z79.4 Diabetes mellitus [facility] insulin use: with intermodal truck driver use Diabetes mellitus complication status: with hyperglycemia Respiratory acidosis E87.29 Urinary tract infection N39.0 Diarrhea R19.7
[2024-07-12] MEDS: cefTRIAXone 1,000 mg SDV 1000 MG IVP (16:14)
[2024-07-12 17:08] LABS: Glucose Point of Care 165 mg/dL (70-110)
[2024-07-12] MEDS: acetaminophen 325 mg Tablet 650 MG PO (20:34)
[2024-07-12] MEDS: atorvastatin 40 mg Tablet 80 MG PO (21:08)
[2024-07-12] MEDS: topiramate 100 mg Tablet PO (21:08)
[2024-07-12] MEDS: insulin glargine 100 units/1 mL 20 UNIT SUBCUT (21:08)
[2024-07-12] MEDS: sertraline 50 mg Tablet 25 MG PO (21:08)
[2024-07-12 21:15] LABS: Glucose Point of Care 181 mg/dL (70-110)
[2024-07-13] VITALS: BP 146/61; PULSE 72; RESP 18; O2SAT 96
[2024-07-13] MEDS: heparin 5,000 unit/mL INJ 1 mL 5000 UNIT SUBCUT ×2 (01:36→08:43)
[2024-07-13 04:00] VITALS: BP 151/70; PULSE 67; RESP 16; O2SAT 95
[2024-07-13 05:55] LABS: Glucose Point of Care 122 mg/dL (70-110)
[2024-07-13] MEDS: insulin glargine 100 units/1 mL 20 UNIT SUBCUT (06:10)
[2024-07-13] MEDS: FUROsemide 10 mg/mL SDV 4mL 40 MG IVP (06:10)
[2024-07-13] MEDS: pantoprazole DR 40 mg Tablet PO (06:11)
[2024-07-13 08:00] VITALS: BP 143/75; PULSE 62; PULSE 67; RESP 18; RESP 20; TEMP 36.8; O2SAT 93; O2SAT 94
[2024-07-13] MEDS: ipratropium-albuterol 3 mL Neb INHALATION (08:29)
[2024-07-13] MEDS: budesonide 0.5 mg/2 mL Neb INHALATION (08:29)
[2024-07-13] MEDS: aspirin 81 mg EC Tablet PO (08:43)
[2024-07-13 09:25] LABS: Blood Urea Nitrogen 30 mg/dL (8-23); Calcium 9.2 mg/dL (8.5-10.5); Carbon Dioxide 34 mmol/L (22-29); Chloride 98 mmol/L (98-107); Creatinine Clr Calc Pharmacy 59.1556; Glomerular Filtration Rate 49.1 mL/min (90-130); Glucose 157 mg/dL (65-115); Osmolality Calculated 303 mOsm/kg (285-295); Sodium 142 mmol/L (136-145)
[2024-07-13 09:28] LABS: Anion Gap 14.1 (5-19); Potassium 4.1 mmol/L (3.5-5.1)
--- NOTE | 2024-07-13 09:35 | P.DS_ITS ---
Discharge Providers Date of Admission: 07/10/24 12:55 Date of Discharge: July 13, 2024 Attending Provider at Admission: Jones Taylor MD Attending Provider at Discharge: Angel Guillemro Primary Care Provider: Anders Griffin DO Diagnoses at Discharge Discharge Diagnosis (1) Acute and chronic respiratory failure, unspecified whether with hypoxia or hypercapnia: Status: Chronic (2) Diastolic CHF: Status: Acute (3) Acute exacerbation of congestive heart failure: Status: Acute (4) RHONDA (acute kidney injury): Status: Acute (5) Type 2 diabetes mellitus: Status: Acute Qualifiers: Diabetes mellitus complication status: with hyperglycemia Diabetes mellitus intermediate frame tender insulin use: with long-term use Qualified Code(s): E11.65 - Type 2 diabetes mellitus with hyperglycemia; Z79.4 - intermediate frame tender (current) use of insulin (6) Respiratory acidosis: Status: Acute (7) Urinary tract infection: Status: Acute (8) Diarrhea: Status: Acute Reason for Visit Reason for Visit: sob Brief History: Fatuma Ching is a 68 year old female with past medical history of diastolic heart failure, type 2 diabetes mellitus, chronic hypoxic respiratory failure usually on 4 L, hypertension was sent into the ER today from [facility] because of concerns for fluid overload. As per the patient she has been retaining more fluid and developing lower limb swelling which has been getting worse over last 1 week associated with difficulty in breathing getting worse on minimal exertion. Patient states she has been going back and forth to the restroom regularly to urinate and has been finding it difficult. Also complaining of mild orthopnea. States usually she is on 4 L but more recently she has been bumped up to 5 L. In the ER she was found to have hypoxic and hypercapnia hence was placed on BiPAP. On examination patient is on BiPAP, awake and alert. Denies any nausea, vomiting, headache. Denies any chest pain, episodes of fever or sick contacts. Hospital Course Hospital Course She initially continued on and was able to wean off BiPAP support. Continued with IV diuretics with fluid restriction 1500 mL/day for treatment of decompensated diastolic congestive heart failure. She has been free of chest pain, EKG without suggestion of cardiac ischemia. She had good urine output, cumulative -3.6 L with good improvement in symptoms, resolution of respiratory failure, back to baseline oxygen requirement on nasal cannula. Subjectively she is feeling much better. Minor RHONDA in the hospital, creatinine 1.2, with improvement down to 1.1. She additionally developed diarrhea C. difficile was checked and negative. Possibly secondary to antibiotic which has been given due to suspected UTI, urine culture eventually growing pansensitive Klebsiella. Maintain fluid restriction, 1.5 L total per 24 hours. Please reassess renal function in 3 days. Reassess volume status, congestive heart failure. Add probiotic to diet once completing antibiotic course. C. difficile was negative. Loperamide as needed. Follow-up incidentally noted nodular soft tissue density in bilateral breast soft tissues. Mammography is recommended. Physical Exam Const: COMMON NORMALS: patient oriented x3 and alert GENERAL APPEARANCE: cooperative ORIENTATION/CONSCIOUSNESS: Yes awake Neck/C-Spine: COMMON NORMALS: no JVD Cardio: COMMON NORMALS: no JVD Neuro: COMMON NORMALS: patient oriented x3 and moves all extremities SENSORIUM/ORIENTATION: Yes alert Urinary Catheter Management: Nava: Cath Placed During This Visit: yes Reason for Continuing Indwelling Catheter: Other Urinary Catheter Date of Insertion: 07/10/24 Urinary Catheter Time of Insertion: 15:20 Discharge Data Studies Completed and Pending Completed Studies During Hospitalization Category Date Time Status CT chest wo con [id number] Routine Cat Scan 07/10/24 16:05 Completed XR chest 1V portable [id number] Stat Exams 07/10/24 11:26 Completed Pending at discharge Category Date Time Status Blood Culture Stat Lab 07/10/24 15:43 Results Sputum Culture and Gram Stain Stat Lab 07/10/24 16:05 Uncollected Radiology Impressions Chest X-Ray 07/10/24 11:26 IMPRESSION: 1. Stable cardiomegaly with findings suggesting pulmonary vascular congestion. Superimposed infectious or inflammatory infiltrate is not entirely excluded. 2. No definitive pleural effusion or pneumothorax. Chest CT 07/10/24 16:05 IMPRESSION: 1. Small right pleural effusion with overlying compressive atelectasis. Mild left basilar atelectasis. No focal consolidation or pneumothorax. 2. Cardiomegaly. Mild coronary artery calcification. 3. Nodular soft tissue density in the bilateral breast soft tissues. Recommend mammographic correlation. Laboratory Results WBC 10.20 10^3/uL (3.29-11.43) 07/11/24 02:32 RBC 5.20 10^6/uL (3.85-5.65) 07/11/24 02:32 Hgb 12.20 g/dL (11.27-16.99) 07/11/24 02:32 Hct 44.1 % (36-47) 07/11/24 02:32 MCV 84.8 fl (85-98) L 07/11/24 02:32 MCH 23.5 pg (27-33) L 07/11/24 02:32 MCHC 27.7 g/dL (30-55) L 07/11/24 02:32 RDW 18.1 % (12.1-15.1) H 07/11/24 02:32 Plt Count 239 10^3/cmm (157-399) 07/11/24 02:32 MPV 9.7 fL (7.4-10.4) 07/11/24 02:32 Neut % (Auto) 72.3 % 07/11/24 02:32 Lymph % (Auto) 13.9 % 07/11/24 02:32 [place] % (Auto) 11.5 % 07/11/24 02:32 Eos % (Auto) 1.6 % 07/11/24 02:32 Baso % (Auto) 0.4 % 07/11/24 02:32 Neut # (Auto) 7.38 10^3/uL (1.8-7.7) 07/11/24 02:32 Lymph # (Auto) 1.4 10^3/uL (0.8-4.8) 07/11/24 02:32 [place] # (Auto) 1.2 10^3/uL (0.2-0.9) H 07/11/24 02:32 Eos # (Auto) 0.2 10^3/uL (0.0-0.8) 07/11/24 02:32 Baso # (Auto) 0.0 10^3/uL (0.0-0.1) 07/11/24 02:32 Nucleated RBC % (auto) 0 % 07/11/24 02:32 Nucleated RBCs # 0.0 /100WBC 07/11/24 02:32 PT 14.60 SECONDS (12.1-14.9) 07/10/24 11:57 INR 1.07 (0.8-1.2) 07/10/24 11:57 D-Dimer 0.73 ug/mLFEU (0-0.59) H 07/10/24 11:57 Specimen Type Arterial 07/10/24 15:49 Sample Site Radial, right 07/10/24 15:49 ABG pH 7.33 (7.35-7.45) L 07/10/24 15:49 ABG pCO2 70.7 mmHg (35-45) H* 07/10/24 15:49 ABG pO2 94.4 mmHg (80.0-100.0) 07/10/24 15:49 ABG PO2/FiO2 Ratio 236 07/10/24 15:49 ABG HCO3 36.9 mmol/L (22-26) H 07/10/24 15:49 ABG O2 Saturation 97.6 07/10/24 15:49 ABG Base Excess 8.4 mmol/L (-2.0-2.0) H 07/10/24 15:49 Av Test Pos 07/10/24 15:49 A-a O2 Gradient 13.7 mmHg (5-10) H 07/10/24 15:49 Hematocrit 39.0 % (37-47) 07/10/24 15:49 Hgb O2 Saturation 95.1 % (95-100) 07/10/24 15:49 Carboxyhemoglobin 1.6 %THgb (0.4-20.1) 07/10/24 15:49 Methemoglobin 1.0 % (0.4-1.5) 07/10/24 15:49 Total Hemoglobin 12.7 g/dL (12-16) 07/10/24 15:49 Sodium 147.0 mmol/L (131-143) H 07/10/24 15:49 Potassium 4.3 mmol/L (3.5-5.0) 07/10/24 15:49 Glucose 82.0 mg/dL (70-115) 07/10/24 15:49 Ionized Calcium 1.2 mmol/L (1.1-1.4) 07/10/24 15:49 O2 Delivery Device Bipap 07/10/24 15:49 O2 Liters/Min 5.0 % 07/10/24 12:00 FiO2 40.0 % 07/10/24 15:49 Lithographic Photographer ID Amh 07/10/24 15:49 Sodium 142 mmol/L (136-145) 07/13/24 08:43 Potassium 4.1 mmol/L (3.5-5.1) 07/13/24 08:43 Chloride 98 mmol/L (98-107) 07/13/24 08:43 Carbon Dioxide 34 mmol/L (22-29) H 07/13/24 08:43 Anion Gap 14.1 (5-19) 07/13/24 08:43 BUN 30 mg/dL (8-23) H 07/13/24 08:43 Creatinine 1.1 mg/dL (0.5-0.9) H 07/13/24 08:43 GFR Calculation 49.1 mL/min (90-130) L 07/13/24 08:43 Glucose 157 mg/dL (65-115) H 07/13/24 08:43 POC Glucose 122 mg/dL (70-110) H 07/13/24 05:52 Estimat Average Glucose 177 07/11/24 02:32 Hemoglobin A1c 7.8 % (4.0-6.0) H 07/11/24 02:32 Calculated Osmolality 303 mOsm/kg (285-295) H 07/13/24 08:43 Calcium 9.2 mg/dL (8.5-10.5) 07/13/24 08:43 Phosphorus 3.0 mg/dL (2.5-4.5) 07/11/24 02:32 Magnesium 2.2 mg/dL (1.7-2.3) 07/12/24 02:35 Iron 24 ug/dL (37-145) L 07/10/24 11:57 TIBC 292 mcg/dl 07/10/24 11:57 % Saturation 8.2 % (20-50) L 07/10/24 11:57 Unsat Iron Binding 268 ug/dL (112-347) 07/10/24 11:57 Total Bilirubin 0.3 mg/dL (0.15-1.2) 07/11/24 02:32 AST 12 U/L (0-32) 07/11/24 02:32 ALT 12 U/L (0-33) 07/11/24 02:32 Alkaline Phosphatase 76 U/L (35-105) 07/11/24 02:32 NT-Pro-B Natriuret Pep 4992 pg/mL (0-125) H 07/10/24 11:57 Total Protein 6.5 g/dL (6.6-8.7) L 07/11/24 02:32 Albumin 3.5 g/dL (3.5-5.2) 07/11/24 02:32 Globulin 3.0 g/dL (1.3-4.6) 07/11/24 02:32 Triglycerides 105 mg/dL (0-150) 07/11/24 02:32 Triglycerides Cancelled 07/11/24 02:32 Cholesterol 137 mg/dL (0-200) 07/11/24 02:32 Cholesterol Cancelled 07/11/24 02:32 LDL Cholesterol, Calc 75 mg/dL (50-129) 07/11/24 02:32 LDL Cholesterol, Calc Cancelled 07/11/24 02:32 HDL Cholesterol 41 mg/dL (60-100) L 07/11/24 02:32 HDL Cholesterol Cancelled 07/11/24 02:32 LDL/HDL Ratio 1.83 RATIO (0.00-3.22) 07/11/24 02:32 LDL/HDL Ratio Cancelled 07/11/24 02:32 Cholesterol/HDL Ratio 3.34 mg/dL (0.0-4.40) 07/11/24 02:32 Cholesterol/HDL Ratio Cancelled 07/11/24 02:32 Vitamin B12 314 pg/mL (232-1245) 07/10/24 11:57 Folate 17.5 ng/mL (4.8-37.3) 07/11/24 02:32 Procalcitonin 0.13 ng/mL (0-0.5) 07/11/24 02:32 Procalcitonin Cancelled 07/11/24 02:32 TSH 2.88 uIU/mL (0.27-4.20) 07/10/24 11:57 Urine Color Yellow (Yellow) 07/10/24 15:37 Urine Appearance Clear (CLEAR) 07/10/24 15:37 Urine pH 5.0 (5-7) 07/10/24 15:37 Ur Specific [place] 1.008 (1.005-1.030) 07/10/24 15:37 Urine Protein 1+ (Negative) A 07/10/24 15:37 Urine Glucose (UA) Negative (Normal) 07/10/24 15:37 Urine Ketones Negative (Negative) 07/10/24 15:37 Urine Blood Negative (Negative) 07/10/24 15:37 Urine Nitrate Negative (Negative) 07/10/24 15:37 Urine Bilirubin Negative (Negative) 07/10/24 15:37 Urine Urobilinogen 0.2 mg/dL (Negative) 07/10/24 15:37 Ur Leukocyte Esterase Trace (Negative) A 07/10/24 15:37 Urine RBC 0-2 /hpf (0-2) 07/10/24 15:37 Urine WBC 11-20 /hpf (0-5) H 07/10/24 15:37 Ur Squamous Epith Cells 0-5 /hpf (0-5) 07/10/24 15:37 Amorphous Sediment Not Reportable 07/10/24 15:37 Urine Bacteria 4+ /hpf (NONE) H 07/10/24 15:37 Hyaline Casts 3.71 /lpf 07/10/24 15:37 Ur Random Sodium 116 mmol/L 07/10/24 15:37 Ur Random Potassium 24 mmol/L 07/10/24 15:37 Ur Random Chloride 132 mmol/L 07/10/24 15:37 Nasal MRSA (PCR) Not detected (Not Detecte) 07/10/24 17:00 Adenovirus (PCR) Not detected (NOT DETECT) 07/10/24 15:37 C. pneumoniae DNA (PCR) Not detected (NOT DETECT) 07/10/24 15:37 C. difficile (PCR) Negative (Negative) 07/12/24 13:40 Coronavirus 229E (PCR) Not detected (NOT DETECT) 07/10/24 15:37 Human Metapneumovir PCR Not detected (NOT DETECT) 07/10/24 15:37 Influenza A (H1) PCR Not detected (NOT DETECT) 07/10/24 15:37 Influ A (H1/09) PCR Not detected (NOT DETECT) 07/10/24 15:37 Influenza A (H3) PCR Not detected (NOT DETECT) 07/10/24 15:37 Influenza Type A (PCR) Not detected (NOT DETECT) 07/10/24 15:37 Influenza Type B (PCR) Not detected (NOT DETECT) 07/10/24 15:37 M. pneumoniae (PCR) Not detected (NOT DETECT) 07/10/24 15:37 Parainfluenza 1 (PCR) Not detected (NOT DETECT) 07/10/24 15:37 Parainfluenza 2 (PCR) Not detected (NOT DETECT) 07/10/24 15:37 Parainfluenza 3 (PCR) Not detected (NOT DETECT) 07/10/24 15:37 Parainfluenza 4 (PCR) Not detected (NOT DETECT) 07/10/24 15:37 RSV Type A (PCR) Not detected (NOT DETECT) 07/10/24 15:37 RSV Type B (PCR) Not detected (NOT DETECT) 07/10/24 15:37 Entero/Rhino (PCR) Not detected (NOT DETECT) 07/10/24 15:37 SARS-CoV-2 (PCR) Not detected (NOT DETECT) 07/10/24 15:37 Vitals Last Vital Signs Temp 98.3 F 07/13/24 08:00 Pulse 62 07/13/24 08:00 Resp 18 07/13/24 08:00 BP 143/75 07/13/24 08:00 Pulse Ox 94 07/13/24 08:00 O2 Del Method Nasal Cannula 07/13/24 08:00 O2 Flow Rate 3 07/13/24 08:00 FiO2 40 07/10/24 23:36 Discharge Plan Discharge Patient Disposition: Xfer SNF Condition: Stable Prescriptions: New cefdinir 300 mg capsule 300 mg PO BID 7 Days Qty: 14 0RF Continued atorvastatin 40 mg tablet 80 mg PO BEDTIME (DME) Diabetic Shoes with 3 Pairs of Inserts See Rx Instructions .Route .MEDSUPPLY Qty: 1 0RF Rx Instructions: As directed by HOME methocarbamol 1,000 mg tablet 1,000 mg PO TID 30 Days Qty: 60 2RF hydrocodone-acetaminophen 7.5-325 mg tablet 1 tab PO BID PRN (Reason: pain) 30 Days Qty: 60 0RF Rx Instructions: may fill 30 days after previous prescription acetaminophen [Tylenol] 325 mg Tablet 650 mg PO QID PRN (Reason: PAIN/FEVER) magnesium hydroxide [Milk of Magnesia] 400 mg/5 mL Suspension 15 ml PO DAILY PRN (Reason: Constipation) bisacodyl 10 mg Suppository 10 mg RI DAILY PRN (Reason: Constipation) Fleet Enema 19-7 gram/118 mL Enema 118 ml RI DAILY PRN (Reason: Constipation) Culturelle 10 billion cell Capsule 1 cap PO DAILY PRN (Reason: ANTIBIOTIC THERAPY) insulin lispro [Humalog KwikPen Insulin] 100 unit/mL insulin pen 35 unit SUBCUT TID@0630,1030,1530 aspirin [Adult Aspirin Regimen] 81 mg tablet,delayed release (DR/EC) 81 mg PO QAM dicyclomine 20 mg tablet 20 mg PO QID@08,12,16,20 dapagliflozin propanediol [Farxiga] 5 mg tablet 5 mg PO DAILY@0800 polyethylene glycol 3350 [Miralax] 17 gram Powder In Packet 17 g PO QAM pantoprazole [Protonix] 40 mg Tablet,Delayed Release (Dr/Ec) 40 mg PO QAM sertraline [Zoloft] 25 mg Tablet 25 mg PO BEDTIME zolpidem [Ambien] 5 mg Tablet 5 mg PO BEDTIME topiramate [Topamax] 100 mg Tablet 100 mg PO BEDTIME cholecalciferol (vitamin D3) [Vitamin D3] 25 mcg (1,000 unit) Capsule 50 mcg PO QAM insulin degludec [Tresiba FlexTouch U-200] 200 unit/mL (3 mL) Insulin Pen 75 unit SUBCUT BID@06,20 guaifenesin [Mucinex] 1,200 mg Tablet Extended Release 12hr 1,200 mg PO BID PRN (Reason: Cough) potassium chloride 20 mEq Tablet Extended Release 20 meq PO DAILY furosemide 40 mg Tablet 40 mg PO DAILY Held lisinopril-hydrochlorothiazide 20-12.5 mg tablet 1 tab PO DAILY@0800 Hold Instructions: Resume on 07/19/24. Discharge Orders: Discharge Order (Routine); Ordered 07/13/24 Ordered By: Angel Guillermo Referrals: [facility] [Outside] Anders Griffin DO [Primary Care Provider] - 4-7 days Discharge Diet: Advance as tolerated, Cardiac and Diabetic Discharge Activity: Increase activity as tolerated and Oxygen as instructed Patient Instructions: Diarrhea - Adult, Cefdinir (By mouth), Heart Failure (DC), Acute Kidney Injury (DC), Urinary Tract Infection in Women (DC), Acute Respiratory Failure (GEN) Activity Restrictions/Additional Instructions: Maintain fluid restriction, 1.5 L total per 24 hours. Please reassess renal function in 3 days. Reassess volume status, congestive heart failure. Add probiotic to diet once completing antibiotic course. C. difficile was negative. Loperamide as needed. Follow-up final urine culture. Follow-up incidentally noted nodular soft tissue density in bilateral breast soft tissues. Mammography is recommended. Discharge Attestations Time Spent in Discharge Care*: greater than 30 min Quality Metrics Clinical Quality Measures [ No reported AMI, CVA or VTE this stay] Coding Level of Care Code 23085 Total time (in minutes) for Discharge: 45 Diagnoses Acute and chronic respiratory failure, unspecified whether with hypoxia or hypercapnia J96.20 Diastolic CHF I50.30 Acute exacerbation of congestive heart failure I50.9 RHONDA (acute kidney injury) N17.9 Type 2 diabetes mellitus with hyperglycemia, with long-term current use of insulin E11.65; Z79.4 Diabetes mellitus complication status: with hyperglycemia Diabetes mellitus long-term insulin use: with long-term use Respiratory acidosis E87.29 Urinary tract infection N39.0 Diarrhea R19.7
--- NOTE | 2024-07-13 11:17 | PC.SOCIAL ---
Addendum entered by Robert Negrete RN 07/13/24 11:20: Updated pt on IMM. Original Note: IMM Updated Updated pt & guardian on IMM. No questions voiced. Provided a copy. Initialed, dated, & timed a copy & placed in chart.
[2024-07-13 11:47] LABS: Glucose Point of Care 209 mg/dL (70-110)
[2024-07-13 12:00] VITALS: BP 157/68; PULSE 72; RESP 24; TEMP 37.1; O2SAT 93
== END 2024-07-13 13:55 | disposition intermediate care facility (04) | DRG 291 ==
LOC: ER 13:05 → ER IP 14:17 → CSU 23:35
PROVIDERS: Internal Medicine; Admitting Provider Student in an Organized Health Care Education/Training Program; Emergency Provider Emergency Medicine; PCP Internal Medicine; Visit Provider Internal Medicine
DX: I11.0 Hypertensive heart disease with heart failure (principal); I50.31 Acute diastolic (congestive) heart failure; J96.21 Acute and chronic respiratory failure with hypoxia; J96.22 Acute and chronic respiratory failure with hypercapnia; N17.9 Acute kidney failure, unspecified; N39.0 Urinary tract infection, site not specified; E11.65 Type 2 diabetes mellitus with hyperglycemia; E11.40 Type 2 diabetes mellitus with diabetic neuropathy, unspecified; Z79.4 Long term (current) use of insulin; R19.7 Diarrhea, unspecified; Z99.81 Dependence on supplemental oxygen; B96.1 Klebsiella pneumoniae [K. pneumoniae] as the cause of diseases classified elsewhere; Z79.891 Long term (current) use of opiate analgesic; Z79.82 Long term (current) use of aspirin
CPT/HCPCS: 36415; 36416; 36600; 51702; 71045; 71250; 80048; 80051; 80053; 80061; 81001; 82330; 82436; 82607; 82746; 82803; 82805; 82962; 83036; 83540; 83550; 83735; 83880; 84100; 84133; 84145; 84300; 84443; 85025; 85378; 85610; 86403; 87040; 87077; 87086; 87186; 87486; 87493; 87581; 87633; 93005; 94640; 94660; 96372; 96374; 96375; 96376; 99291; J0696; J1644; J1815; J1940; J2270; J7626

== ENCOUNTER → 2025-01-17 09:49 | Outpatient (BNVA) | payer MEDICARE, MEDICAID, SELFPAY | PROVIDERS: PCP Internal Medicine; Visit Provider Podiatrist Foot & Ankle Surgery | DX: E11.42 Type 2 diabetes mellitus with diabetic polyneuropathy (principal); L60.3 Nail dystrophy; E11.8 Type 2 diabetes mellitus with unspecified complications; M20.41 Other hammer toe(s) (acquired), right foot; M20.42 Other hammer toe(s) (acquired), left foot; M79.671 Pain in right foot; M79.672 Pain in left foot; L84 Corns and callosities; M21.611 Bunion of right foot; M21.612 Bunion of left foot; Z79.4 Long term (current) use of insulin | CPT/HCPCS: 11055; 11721 ==